=== PATIENT | female | born 1955 | race Caucasian/White ===

== ENCOUNTER 2016-11-16 11:32 | Outpatient (CLI) | payer MEDICARE, OTHER | END 2016-11-16 11:33 | disposition home or self-care (01) | DX: Z98.1 Arthrodesis status (principal) ==

== ENCOUNTER 2016-12-04 11:57 | Emergency (ER) | payer MEDICARE, OTHER ==
[2016-12-04] MEDS ORDERED: ACETAMINOPHEN 325 MG TABLET PO STA (13:37)
[2016-12-04] MEDS ORDERED: ACETAMINOPHEN 325 MG TABLET PO ONE (13:41)
== END 2016-12-04 14:31 | disposition home or self-care (01) ==
DX: S83.91XA Sprain of unspecified site of right knee, initial encounter (principal); X50.0XXA Overexertion from strenuous movement or load, initial encounter; Y93.89 Activity, other specified; Y92.59 Other trade areas as the place of occurrence of the external cause; I10 Essential (primary) hypertension; M19.90 Unspecified osteoarthritis, unspecified site; M79.7 Fibromyalgia; K21.9 Gastro-esophageal reflux disease without esophagitis; Z87.11 Personal history of peptic ulcer disease; F17.200 Nicotine dependence, unspecified, uncomplicated
CPT/HCPCS: 73564; 99282; 99283; A9270

== ENCOUNTER 2017-07-17 07:59 | Emergency (ER) | payer MEDICARE, OTHER ==
[2017-07-17] MEDS ORDERED: DEXAMETHASONE 10 MG/ML VIAL IVP STA (08:40)
[2017-07-17] MEDS ORDERED: SODIUM CHLORIDE 0.9% 1,000 ML IV ONE ×2 (08:40→10:30)
[2017-07-17] MEDS ORDERED: fentaNYL 100 MCG/2 ML VIAL IVP STA (08:40)
[2017-07-17] MEDS ORDERED: LORazepam 2 MG/ML SYRINGE IVP STA (08:41)
[2017-07-17] MEDS ORDERED: ONDANSETRON 4 MG/2 ML VIAL IVP STA (08:41)
--- NOTE | 2017-07-17 08:47 | ED Physician Documentation ---
PD HPI NVD - Stated complaint Stated Complaint: VOMITING - Chief complaint Chief Complaint: Abd Pain - History obtained from History obtained from: Patient - History of Present Illness Timing - onset: How many days ago (4) Timing - duration: Days (4) Timing - details: Gradual onset, Still present Associated symptoms: Abdominal pain, Weight loss Contributing factors: Other (stress) Improved by: Vomiting Worsened by: Eating Similar symptoms before: Diagnosis (cyclical vomiting with cannibis) Recently seen: Clinic - Additonal information Additional information: 62-year-old female with a prior history of cannabis induced hyperemesis has had a significant amount of stress in her life recently with her health. She has severe back pain that has been ongoing for more than 1 year. She has had a 9 hour surgery on her back that failed. She is not on pain management. She is taking cannabis for pain control and she is bathing frequently. She does know she has cannabis hyperemesis and she has stopped smoking previously. She notes that recently she had CT and MRI of her back and had an incidental finding of a renal cell carcinoma and she has had a visit to the surgeon and will have to have this removed. She became much more anxious following this news last week and increased her use of cannabis. She has now developed hyperemesis.She has been having pain for the past year and has not had good relief with anything. She did find the fentanyl given in the ambulance was effective. 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: None : None HEENT: None Psych: Anxiety Musculoskeletal: Fibromyalgia, Chronic back pain Derm: Other - Past Surgical History Past Surgical History: Yes General: Appendectomy, Bowel surgery Ortho: Carpal Tunnel surgery, Spine surgery Neuro: Radical neck - Present Medications Home Medications: Ambulatory Orders Medication Instructions Recorded Confirmed Simvastatin 40 mg PO QPM 11/25/15 07/17/17 Carvedilol [Coreg] 1 tab PO BID 12/04/16 07/17/17 Glipizide 1 tab PO DAILY 12/04/16 07/17/17 Omeprazole [PriLOSEC] 1 tab PO DAILY 12/04/16 07/17/17 Sucralfate 1 tab PO QID 12/04/16 07/17/17 Zolpidem [Ambien] 1 tab PO DAILY 12/04/16 07/17/17 Albuterol Sulfate [Proair Hfa 07/17/17 Inhaler] Telmisartan [Micardis] 40 mg PO DAILY 07/17/17 07/17/17 - Allergies Allergies/Adverse Reactions: Allergies Allergy/AdvReac Type Severity Reaction Status Date / Time hydromorphone HCl * Allergy Unknown UNKNOWN Verified 12/04/16 12:03 [From Dilaudid] duloxetine Allergy Anxiety Verified 07/17/17 08:09 gabapentin Allergy Hallucinati Verified 07/17/17 08:09 ons levofloxacin [From Levaquin] Allergy Hallucinati Verified 07/17/17 08:09 ons morphine AdvReac Emesis Verified 12/04/16 12:03 - Social History Does the pt smoke?: Yes Smoking Status: Current every day smoker Does the pt drink ETOH?: No Does the pt have substance abuse?: No - Immunizations Immunizations are current?: Yes - POLST Patient has POLST: No PD ED PE NORMAL - Vitals Vital signs reviewed: Yes (hypertensive ) - General General: Alert and oriented X 3, Well developed/nourished, Other (The patient is moaning in pain with movement and appears uncomfortable. She has spasms with any movements. ) - HEENT HEENT: Atraumatic, PERRL, EOMI - Neck Neck: Supple, no meningeal sign - Cardiac Cardiac: RRR, No murmur - Respiratory Respiratory: No respiratory distress, Clear bilaterally - Abdomen Abdomen: Soft, Other (mild general tenderness without garding/rebound) - Back Back: No CVA TTP, Other (There is tenderness to the paraspinous muscles more on the right from the lower thoracic spine to the lower lumbar) - Derm Derm: Normal color, Warm and dry, No rash - Extremities Extremities: No deformity, No edema - Neuro Neuro: Alert and oriented X 3, No motor deficit, No sensory deficit, Normal speech - Psych Psych: Normal mood, Normal affect Results - Vitals Vitals: Vital Signs - 24 hr 07/17/17 07/17/17 07/17/17 08:02 09:16 11:06 Temperature 36.5 C 37.0 C 36.8 C Heart Rate 86 90 98 Respiratory 19 16 16 Rate Blood Pressure 197/120 H 154/88 H 155/88 H O2 Saturation 100 97 98 Oxygen O2 Source Room air - Labs Labs: Laboratory Tests 07/17/17 07/17/17 07/17/17 08:20 08:20 09:45 WBC 10.0 RBC 4.85 Hgb 14.7 Hct 43.6 MCV 89.9 MCH 30.4 MCHC 33.8 RDW 14.1 Plt Count 296 MPV 8.5 Neut # 7.6 H Lymph # 1.6 [place] # 0.7 Eos # 0.1 Baso # 0.1 Absolute Nucleated RBC 0.01 Nucleated RBC % 0.1 Sodium 136 Potassium 3.8 Chloride 97 L Carbon Dioxide 24 Anion Gap 15.0 H BUN 24 H Creatinine 1.9 H Estimated GFR (MDRD) 27 L Glucose 193 H Calcium 10.2 Total Bilirubin 1.3 H AST 15 ALT 11 Alkaline Phosphatase 60 Total Protein 8.0 Albumin 5.0 Globulin 3.0 Albumin/Globulin Ratio 1.7 Lipase 21 L Urine Color YELLOW Urine Clarity CLEAR Urine pH 6.0 Ur Specific [place] >=1.030 H Urine Protein 30 H Urine Glucose (UA) 250 H Urine Ketones 15 H Urine Occult Blood SMALL H Urine Nitrite NEGATIVE Urine Bilirubin NEGATIVE Urine Urobilinogen 0.2 (NORMAL) Ur Leukocyte Esterase NEGATIVE Urine RBC 0-5 Urine WBC 0-3 Ur Squamous Epith Cells MOD Squamous H Urine Bacteria Few Urine Casts 3-5 Hyaline Casts Urine Mucus Few Strands Ur Microscopic Review INDICATED Urine Culture Comments NOT INDICATED Procedures - IVC sono (time) 0830 Bedside IVC sono: IVC measures (cm) (0.83), IVC collapsed c insp (cm) (complete) , Dehydration PD MEDICAL DECISION MAKING - ED course Complexity details: reviewed old records, reviewed results, re-evaluated patient , considered differential, d/w patient ED course: 62-year-old female with a history of cannabis hyperemesis has developed nausea vomiting or abdominal pain with increased cannabis use with the stress of recently diagnosed cancer. She has chronic back pain and has not been medicated for that as well. Departure - Departure Disposition: 01 Home, Self Care Clinical Impression: Cannabinoid hyperemesis syndrome, Stress and adjustment reaction Condition: Stable Instructions: ED Diet Vomiting Diarrhea, ED Stress React Follow-Up: Luis Blanc MD [Primary Care Provider] -
[2017-07-17 09:24] LABS: BASOPHILS # (AUTO) 0.1 10^3/uL (0.0-0.1); BASOPHILS % (AUTO) 0.6 %; EOSINOPHILS # (AUTO) 0.1 10^3/uL (0.0-0.7); EOSINOPHILS % (AUTO) 0.8 %; HCT - HEMATOCRIT 43.6 % (37.0-47.0); HGB - HEMOGLOBIN 14.7 g/dL (12.0-16.0); LYMPHOCYTES # (AUTO) 1.6 10^3/uL (1.5-3.5); LYMPHOCYTES % (AUTO) 15.8 %; MEAN CORPUSCULAR HEMOGLOBIN 30.4 pg (27.0-31.0); MEAN CORPUSCULAR HGB CONC 33.8 g/dL (32.0-36.0); MEAN CORPUSCULAR VOLUME 89.9 fL (81.0-99.0); MEAN PLATELET VOLUME 8.5 fL (7.9-10.8); MONOCYTES # (AUTO) 0.7 10^3/uL (0.0-1.0); MONOCYTES % (AUTO) 6.6 %; NEUTROPHILS # (AUTO) 7.6 10^3/uL (1.5-6.6); NEUTROPHILS % (AUTO) 76.2 %; NUCLEATED RED BLOOD CELLS AUTO 0.1 /100WBC; RED BLOOD COUNT 4.85 10^6/uL (4.20-5.40); RED CELL DISTRIBUTION WIDTH 14.1 % (12.0-15.0)
[2017-07-17 09:34] LABS: ALBUMIN/GLOBULIN RATIO 1.7 (1.0-2.2); BILIRUBIN,TOTAL 1.3 mg/dL (0.2-1.0); CALCIUM 10.2 mg/dL (8.5-10.3); CREATININE 1.9 mg/dL (0.4-1.0); POTASSIUM 3.8 mmol/L (3.5-5.0)
[2017-07-17 10:04] LABS: BILIRUBIN,URINE NEGATIVE (NEGATIVE); UA w/ MICROSCOPIC CHARGE YES
[2017-07-17 10:09] LABS: UR CULTURE IF IND NOT INDICATED; WBC,URINE 0-3 /HPF (0-5)
[2017-07-17 12:28] VITALS: BP 196/116
== END 2017-07-17 12:28 | disposition home or self-care (01) ==
LOC: ED 07:59
DX: F12.988 Cannabis use, unspecified with other cannabis-induced disorder (principal); R11.10 Vomiting, unspecified; F43.21 Adjustment disorder with depressed mood; C64.9 Malignant neoplasm of unspecified kidney, except renal pelvis; I10 Essential (primary) hypertension; E11.9 Type 2 diabetes mellitus without complications; Z79.84 Long term (current) use of oral hypoglycemic drugs; K21.9 Gastro-esophageal reflux disease without esophagitis; M79.7 Fibromyalgia; M54.9 Dorsalgia, unspecified; G89.29 Other chronic pain; Z87.11 Personal history of peptic ulcer disease; F17.200 Nicotine dependence, unspecified, uncomplicated
CPT/HCPCS: 36415; 80053; 81001; 81003; 83690; 85025; 87086; 96361; 96374; 96375; 99284

== ENCOUNTER 2017-11-01 02:11 | Emergency (ER) | payer MEDICARE, OTHER ==
[2017-11-01] MEDS ORDERED: SODIUM CHLORIDE 0.9% 1,000 ML IV ONE (02:28)
[2017-11-01] MEDS ORDERED: ONDANSETRON 4 MG/2 ML VIAL IVP STA (02:28)
--- NOTE | 2017-11-01 02:35 | ED Physician Documentation ---
PD HPI ABD PAIN - Stated complaint Stated Complaint: VOMITING - Chief complaint Chief Complaint: Back Pain - History obtained from History obtained from: Patient, Family - History of Present Illness Timing - onset: Yesterday Timing - details: Gradual onset, Still present Quality: Cramping, Aching Location: LLQ Worsened by: Eating Associated symptoms: Nausea, Vomiting, Constipation. No: Fever Similar symptoms before: Work up / diagnostics, Treatment Recently seen: Not recently seen - Additional information Additional information: Patient is a 62 year old female with a history of chronic back pain and multiple surgeries, cyclic vomiting and diverticulitis who is presenting to the emergency for back pain, llq pain and vomiting. patient states her mother recently and she was spending a lot of time taking care of her, and thinks that she might have tweaked her back. patient also states that she has had left lower quadrant pain. Patient states that she has been vomiting and unable to keep anything down. patient states that she normally is a bit constipated due to the opiates. patient states that she has not changed the amount of marijuana she is smoking. patient also reports that she had a mass on her kidney that was frozen off about 2 weeks ago. Review of Systems Constitutional: denies: Fever, Chills Eyes: denies: Decreased vision, Photophobia Ears: reports: Reviewed and negative Nose: reports: Reviewed and negative Throat: reports: Reviewed and negative Cardiac: denies: Chest pain / pressure, Palpitations Respiratory: denies: Dyspnea, Cough, Wheezing GI: reports: Abdominal Pain, Nausea, Vomiting, Constipation. 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 : None HEENT: None Psych: Anxiety Musculoskeletal: Fibromyalgia, Chronic back pain Derm: Other - Past Surgical History Past Surgical History: Yes General: Appendectomy, Bowel surgery Ortho: Carpal Tunnel surgery, Spine surgery Neuro: Radical neck - Present Medications Home Medications: Ambulatory Orders Medication Instructions Recorded Confirmed Simvastatin 40 mg PO QPM 11/25/11/01/17 Carvedilol [Coreg] 1 tab PO BID 12/04/16 11/01/17 Glipizide 1 tab PO DAILY 12/04/16 11/01/17 Omeprazole [PriLOSEC] 1 tab PO DAILY 12/04/16 11/01/17 Zolpidem [Ambien] 1 tab PO DAILY 12/04/16 11/01/17 Albuterol Sulfate [Proair Hfa 07/17/17 Inhaler] Telmisartan [Micardis] 40 mg PO DAILY 07/17/17 11/01/17 Cyclobenzaprine HCl 1 tab PO TID PRN 11/01/17 11/01/17 Ondansetron HCl [Zofran] 1 tab PO Q6HR PRN 11/01/17 11/01/17 Ondansetron Odt [Zofran] 4 mg TL Q6H PRN #20 tablet 11/01/17 Polyethylene Glycol 3350 [Miralax] 17 gm PO DAILY PRN 11/01/17 11/01/17 Pseudoephedrine HCl 1 tab PO Q6HR PRN 11/01/17 11/01/17 Senna [Senokot] 1 tab PO QPM 11/01/17 11/01/17 fentaNYL [Fentanyl 25mcg patch] 1 applic TOP 11/01/17 hydrOXYzine pamoate [Hydroxyzine 1 cap PO Q6HR PRN 11/01/17 11/01/17 Pamoate] - Allergies Allergies/Adverse Reactions: Allergies Allergy/AdvReac Type Severity Reaction Status Date / Time hydromorphone HCl * Allergy Unknown UNKNOWN Verified 11/01/17 02:26 [From Dilaudid] duloxetine Allergy Anxiety Verified 11/01/17 02:26 gabapentin Allergy Hallucinati Verified 11/01/17 02:26 ons levofloxacin [From Levaquin] Allergy Hallucinati Verified 11/01/17 02:26 ons morphine AdvReac Emesis Verified 11/01/17 02:26 - Social History Does the pt smoke?: Yes Smoking Status: Current every day smoker Does the pt drink ETOH?: No Does the pt have substance abuse?: No - Immunizations Immunizations are current?: Yes - POLST Patient has POLST: No PD ED PE NORMAL - Vitals Vital signs reviewed: Yes - General General: Alert and oriented X 3 - HEENT HEENT: Atraumatic, PERRL - Neck Neck: Supple, no meningeal sign PD ED PE EXPANDED - General General: Alert - HEENT HEENT: Dry mucous membranes - Abdomen Abdomen: Tender to palpation, LLQ. No: Rebound, Guarding - Extremities Extremities: Pedal edema bilateral Results - Vitals Vitals: Vital Signs - 24 hr 11/01/17 11/01/17 11/01/17 02:18 02:50 03:19 Temperature 36.9 C Heart Rate 114 H 99 99 Respiratory 20 18 18 Rate Blood Pressure 183/89 H 177/105 H 190/92 H O2 Saturation 98 99 100 11/01/17 04:15 Temperature Heart Rate 94 Respiratory 16 Rate Blood Pressure 179/85 H O2 Saturation 96 Oxygen O2 Source Room air - Labs Labs: Laboratory Tests 11/01/17 11/01/17 11/01/17 02:25 02:25 02:25 WBC 10.2 RBC 5.10 Hgb 15.3 Hct 45.9 MCV 90.0 MCH 30.0 MCHC 33.3 RDW 13.2 Plt Count 295 MPV 8.8 Neut # 8.0 H Lymph # 1.5 [place] # 0.6 Eos # 0.0 Baso # 0.1 Absolute Nucleated RBC 0.12 Nucleated RBC % 1.1 Sodium 139 Potassium 3.7 Chloride 96 L Carbon Dioxide 27 Anion Gap 16.0 H BUN 14 Creatinine 1.1 H Estimated GFR (MDRD) 50 L Glucose 197 H Calcium 9.9 Total Bilirubin 0.5 AST 17 ALT 14 Alkaline Phosphatase 62 Troponin I < 0.04 Total Protein 7.8 Albumin 4.7 Globulin 3.1 Albumin/Globulin Ratio 1.5 Lipase 28 Urine Color Urine Clarity Urine pH Ur Specific [place] Urine Protein Urine Glucose (UA) Urine Ketones Urine Occult Blood Urine Nitrite Urine Bilirubin Urine Urobilinogen Ur Leukocyte Esterase Ur Microscopic Review Urine Culture Comments 11/01/17 03:38 WBC RBC Hgb Hct MCV MCH MCHC RDW Plt Count MPV Neut # Lymph # [place] # Eos # Baso # Absolute Nucleated RBC Nucleated RBC % Sodium Potassium Chloride Carbon Dioxide Anion Gap BUN Creatinine Estimated GFR (MDRD) Glucose Calcium Total Bilirubin AST ALT Alkaline Phosphatase Troponin I Total Protein Albumin Globulin Albumin/Globulin Ratio Lipase Urine Color LT. YELLOW Urine Clarity CLEAR Urine pH 8.0 H Ur Specific [place] 1.015 Urine Protein NEGATIVE Urine Glucose (UA) 100 H Urine Ketones TRACE Urine Occult Blood TRACE-INTA Urine Nitrite NEGATIVE Urine Bilirubin NEGATIVE Urine Urobilinogen 0.2 (NORMAL) Ur Leukocyte Esterase NEGATIVE Ur Microscopic Review NOT INDICATED Urine Culture Comments NOT INDICATED - Rads (name of study) ct abdomen pelvis Radiology: Final report received (no sigificant acute intrabdominal pathology), See rad report PD MEDICAL DECISION MAKING - ED course Complexity details: reviewed old records, reviewed results, re-evaluated patient , considered differential, d/w patient, d/w family ED course: Patient was seen and examined at bedside. IV access was gained and patient was treated with a fluid bolus and zofran. imaging was ordered. Patient's CT showed no reason for acute abdominal pain. Patient's other diagnostics were within normal limits. Patient had no other episodes of emesis while in the emergency department. patient required no further inpatient work up and was stable for discharge with outpatient follow up. Departure - Departure Disposition: 01 Home, Self Care Clinical Impression: Vomiting, Cannabinoid hyperemesis syndrome Condition: Good Instructions: ED Diet Vomiting Diarrhea Follow-Up: Luis Blanc MD [Primary Care Provider] - Within 3 Days Prescriptions: Ondansetron Odt [Zofran] 4 mg TL Q6H PRN #20 tablet PRN Reason: Nausea / Vomiting Comments: Your diagnostics today were within normal limits. there were no major abnormalities on your CT or blood work. You should take the zofran as needed for nausea and stay well hydrated. You can take tylenol as needed for pain. You should follow up with your doctor if your symptoms persist. You may return to the emergency department at any time for new, worsening or uncontrollable symptoms.
[2017-11-01 02:51] LABS: ALBUMIN 4.7 g/dL (3.2-5.5); ALBUMIN/GLOBULIN RATIO 1.5 (1.0-2.2); BILIRUBIN,TOTAL 0.5 mg/dL (0.2-1.0); CALCIUM 9.9 mg/dL (8.5-10.3); CREATININE 1.1 mg/dL (0.4-1.0); TOTAL PROTEIN 7.8 g/dL (6.7-8.2)
[2017-11-01 02:54] LABS: BASOPHILS # (AUTO) 0.1 10^3/uL (0.0-0.1); BASOPHILS % (AUTO) 0.7 %; EOSINOPHILS % (AUTO) 0.3 %; HGB - HEMOGLOBIN 15.3 g/dL (12.0-16.0); LYMPHOCYTES # (AUTO) 1.5 10^3/uL (1.5-3.5); LYMPHOCYTES % (AUTO) 14.6 %; MEAN CORPUSCULAR HGB CONC 33.3 g/dL (32.0-36.0); MEAN PLATELET VOLUME 8.8 fL (7.9-10.8); MONOCYTES # (AUTO) 0.6 10^3/uL (0.0-1.0); MONOCYTES % (AUTO) 6.2 %; NEUTROPHILS % (AUTO) 78.2 %; PLT - PLATELET COUNT 295 10^3/uL (130-450); RED CELL DISTRIBUTION WIDTH 13.2 % (12.0-15.0); WHITE BLOOD COUNT 10.2 x10^3/uL (4.8-10.8)
[2017-11-01] MEDS ORDERED: IOPAMIDOL-300 100 ML VIAL ONE (03:03)
[2017-11-01] MEDS ORDERED: IOPAMIDOL-300 100 ML VIAL IVP ONE (03:19)
--- NOTE | 2017-11-01 03:54 | CT Report ---
EXAM: CT ABDOMEN AND PELVIS EXAM DATE: 11/01/2017 03:26 AM. CLINICAL HISTORY: Abdominal pain and vomiting. COMPARISONS: 12/01/2015. TECHNIQUE: Routine helical CT imaging was performed through the abdomen and pelvis. IV contrast: 80ML ISOVUE 300. Enteric contrast: No. Reconstructions: Coronal and sagittal. In accordance with CT protocol optimization, one or more of the following dose reduction techniques w ere utilized for this exam: automated exposure control, adjustment of mA and/or KV based on patient s ize, or use of iterative reconstructive technique. FINDINGS: Lung Bases: No focal consolidation seen. Small hiatal hernia. Liver: Fatty infiltration. Gallbladder/Bile Ducts: Tiny calcified stones in the gallbladder. No cholecystitis identified. Spleen: Normal. Pancreas: Normal. Adrenal Glands: Normal. Kidneys: Right upper pole renal mass measuring 2.8 cm, series 5 image 39. Small bilateral renal cysts . Tiny nonobstructing left renal stone. No hydronephrosis seen. Peritoneal Cavity/Bowel: Colonic diverticulosis without evidence of diverticulitis. No bowel obstruct ion seen. No free air or free fluid. Small umbilical hernia containing fat. Appendix is not seen. No evidence of appendicitis. Pelvic Organs: Normal. The bladder and visualized pelvic organs are within normal limits. Vasculature: Mild atherosclerosis. No aortic aneurysm. Bones: Osteopenia. Degenerative changes and extensive postoperative changes in the lumbosacral spine. Other: None. IMPRESSION: 1. Colonic diverticulosis. No definite diverticulitis seen. 2. Right upper pole renal mass measuring 2.8 cm. This could represent renal cell carcinoma. Benign et iologies not excluded. 3. Tiny nonobstructing stone in the left kidney. No hydronephrosis seen bilaterally. 4. Tiny calcified stones in the gallbladder. No cholecystitis identified. 5. Fatty liver. [facility] Referring Provider Line: [phone] SITE ID: [id number]
[2017-11-01 03:56] LABS: BILIRUBIN,URINE NEGATIVE (NEGATIVE); GLUCOSE, URINE (UA) 100 mg/dL (NEGATIVE); KETONES,URINE (UA) TRACE mg/dL (NEGATIVE); LEUKOCYTE ESTERASE, URINE NEGATIVE (NEGATIVE); NITRITE,URINE NEGATIVE (NEGATIVE); OCCULT BLOOD,URINE TRACE-INTA (NEGATIVE); PROTEIN,URINE NEGATIVE (NEGATIVE); UROBILINOGEN,URINE 0.2 (NORMAL) E.U./dL (NORMAL)
[2017-11-01 04:15] LABS: CLARITY,URINE CLEAR (CLEAR)
[2017-11-01 04:38] VITALS: BP 164/87
== END 2017-11-01 04:47 | disposition home or self-care (01) ==
LOC: ED 02:11
DX: F12.988 Cannabis use, unspecified with other cannabis-induced disorder (principal); R11.2 Nausea with vomiting, unspecified; R10.12 Left upper quadrant pain; I10 Essential (primary) hypertension; E11.9 Type 2 diabetes mellitus without complications; Z79.84 Long term (current) use of oral hypoglycemic drugs; M54.9 Dorsalgia, unspecified; G89.29 Other chronic pain; M79.7 Fibromyalgia; K21.9 Gastro-esophageal reflux disease without esophagitis; F17.200 Nicotine dependence, unspecified, uncomplicated
CPT/HCPCS: 36415; 74177; 80053; 81003; 83690; 84484; 85025; 96361; 96374; 99283; 99284; Q9967; 81001; 87086

== ENCOUNTER 2017-12-05 10:13 | Outpatient (CLI) | payer MEDICARE, OTHER ==
--- NOTE | 2017-12-05 17:46 | XRAY Report ---
TWO VIEW CHEST: 12/05/2017 CLINICAL INDICATION: Cough. COMPARISON: 03/14/2013 FINDINGS: Frontal and lateral views of the chest demonstrate a normal cardiac silhouette. The lungs are clear. No effusion or pneumothorax is present. IMPRESSION: NORMAL CHEST. TD: 12/05/2017 17:45
== END 2017-12-05 10:14 | disposition home or self-care (01) ==
LOC: DI 10:13
PROVIDERS: ATTEND Internal Medicine
DX: J45.991 Cough variant asthma (principal)
CPT/HCPCS: 71046

== ENCOUNTER 2018-01-12 14:20 | Emergency (ER) | payer MEDICARE, OTHER ==
[2018-01-12] MEDS ORDERED: SODIUM CHLORIDE 0.9% 1,000 ML IV ONE ×2 (14:55→15:48)
[2018-01-12] MEDS ORDERED: ONDANSETRON 4 MG/2 ML VIAL IVP STA (14:56)
[2018-01-12] MEDS ORDERED: fentaNYL 100 MCG/2 ML VIAL IVP STA (14:56)
[2018-01-12] MEDS ORDERED: LORazepam 2 MG/ML VIAL IVP STA (14:57)
[2018-01-12 15:09] LABS: BASOPHILS # (AUTO) 0.1 10^3/uL (0.0-0.1); BASOPHILS % (AUTO) 0.6 %; EOSINOPHILS % (AUTO) 0.1 %; HGB - HEMOGLOBIN 17.3 g/dL (12.0-16.0); LYMPHOCYTES # (AUTO) 1.6 10^3/uL (1.5-3.5); LYMPHOCYTES % (AUTO) 8.3 %; MEAN CORPUSCULAR HEMOGLOBIN 29.9 pg (27.0-31.0); MEAN CORPUSCULAR HGB CONC 34.1 g/dL (32.0-36.0); MEAN CORPUSCULAR VOLUME 87.7 fL (81.0-99.0); MEAN PLATELET VOLUME 8.8 fL (7.9-10.8); MONOCYTES # (AUTO) 0.8 10^3/uL (0.0-1.0); MONOCYTES % (AUTO) 4.1 %; NEUTROPHILS # (AUTO) 16.6 10^3/uL (1.5-6.6); NEUTROPHILS % (AUTO) 86.9 %; PLT - PLATELET COUNT 326 10^3/uL (130-450); RED BLOOD COUNT 5.78 10^6/uL (4.20-5.40); WHITE BLOOD COUNT 19.1 x10^3/uL (4.8-10.8)
[2018-01-12 15:20] LABS: ALBUMIN 6.2 g/dL (3.2-5.5); ALBUMIN/GLOBULIN RATIO 1.9 (1.0-2.2); BILIRUBIN,TOTAL 1.3 mg/dL (0.2-1.0); CALCIUM 10.6 mg/dL (8.5-10.3); CREATININE 2.5 mg/dL (0.4-1.0); TOTAL PROTEIN 9.4 g/dL (6.7-8.2)
[2018-01-12 17:35] LABS: GLUCOSE, URINE (UA) NEGATIVE (NEGATIVE); KETONES,URINE (UA) NEGATIVE (NEGATIVE); LEUKOCYTE ESTERASE, URINE NEGATIVE (NEGATIVE); NITRITE,URINE NEGATIVE (NEGATIVE); OCCULT BLOOD,URINE MODERATE (NEGATIVE); PROTEIN,URINE 100 mg/dL (NEGATIVE); UROBILINOGEN,URINE 0.2 (NORMAL) E.U./dL (NORMAL)
[2018-01-12 17:38] LABS: BILIRUBIN,URINE NEGATIVE (NEGATIVE); CLARITY,URINE CLOUDY (CLEAR); ICTOTEST,URINE NEGATIVE
[2018-01-12] MEDS ORDERED: PHENobarb/HYOSCY/ATROPINE/SCOP 5 ML UDC PO STA (17:41)
[2018-01-12] MEDS ORDERED: LIDOCAINE VISCOUS 2% 15 ML UDC MM STA (17:41)
[2018-01-12] MEDS ORDERED: MAG HYDROX/AL HYDROX/SIMETH 30 ML UDC PO STA (17:41)
[2018-01-12 17:50] LABS: BACTERIA,URINE Few /HPF (None Seen); MUCUS,URINE Few Strands; SQUAMOUS EPITHELIAL CELL,UR MANY Squamous (<= Few)
[2018-01-12 17:51] LABS: CRYSTALS,URINE 0-2 Calcium Oxalate /LPF
--- NOTE | 2018-01-12 17:54 | ED Physician Documentation ---
PD HPI ABD PAIN - Stated complaint Stated Complaint: VOMITING - Chief complaint Chief Complaint: Abd Pain - History obtained from History obtained from: Patient - History of Present Illness Timing - onset: How many days ago (2) Timing - duration: Days (2) Timing - details: Still present Quality: Cramping Associated symptoms: Vomiting, Diarrhea Similar symptoms before: Diagnosis (Cannabanoid cyclic vomiting syndrome) - Additional information Additional information: The patient is a 62-year-old female who complains of 2 day history of vomiting and watery diarrhea. She reports associated cramping abdominal pain. She denies fever, chest pain, or dysuria. She has history of similar symptoms in the past, and has been diagnosed with cannabinoid cyclic vomiting syndrome. Her last episode this bad was about 2 months ago. Review of her medical record reveals that she was seen here 2-1/2 months ago with similar symptoms. CT scan of the abdomen and pelvis at that time was negative. Past medical history is significant for type 2 diabetes, chronic back pain, with back surgery 3, and status post appendectomy. She states marijuana is the only thing that helps control her back pain. Review of Systems Constitutional: reports: Fatigue. denies: Fever Ears: denies: Tinnitus/ringing Nose: denies: Congestion Throat: reports: Other (Dry mouth). denies: Sore throat Cardiac: denies: Chest pain / pressure, Palpitations Respiratory: denies: Dyspnea, Cough GI: reports: Abdominal Pain (Mild left-sided cramping abdominal pain.), Nausea, Vomiting, Diarrhea : denies: Dysuria Skin: denies: Rash Musculoskeletal: reports: Back pain (chronically) Neurologic: reports: Generalized weakness. 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 HEENT: None Psych: Anxiety Musculoskeletal: Fibromyalgia, Chronic back pain Derm: Other - Past Surgical History Past Surgical History: Yes General: Appendectomy, Bowel surgery Ortho: Carpal Tunnel surgery, Spine surgery Neuro: Radical neck - Present Medications Home Medications: Ambulatory Orders Medication Instructions Recorded Confirmed Simvastatin 40 mg PO QPM 11/25/15 01/12/18 Carvedilol [Coreg] 6.25 mg PO BID 12/04/16 01/12/18 Zolpidem [Ambien] 10 mg PO QPM 12/04/16 01/12/18 Polyethylene Glycol 3350 [Miralax] 17 gm PO DAILY PRN 11/01/17 01/12/18 hydrOXYzine pamoate [Hydroxyzine 25 mg PO Q6HR PRN 11/01/17 01/12/18 Pamoate] Albuterol Sulfate [Proair Hfa 2 puffs INH Q4H PRN 01/12/18 01/12/18 Inhaler] Ondansetron [Ondansetron Odt] 8 mg PO Q8H PRN 01/12/18 01/12/18 Promethazine [Phenergan] 25 - 50 mg PO Q6H PRN #10 tab 01/12/18 Telmisartan [Micardis] 40 mg PO DAILY 01/12/18 fentaNYL [Fentanyl 12mcg patch] 12 mcg TOP Q72H 01/12/18 01/12/18 glipiZIDE [Glipizide] 5 mg PO 0730 01/12/18 01/12/18 - Allergies Allergies/Adverse Reactions: Allergies Allergy/AdvReac Type Severity Reaction Status Date / Time hydromorphone HCl * Allergy Unknown UNKNOWN Verified 01/12/18 14:26 [From Dilaudid] duloxetine Allergy Anxiety Verified 01/12/18 14:26 gabapentin Allergy Hallucinati Verified 01/12/18 14:26 ons levofloxacin [From Levaquin] Allergy Hallucinati Verified 01/12/18 14:26 ons morphine AdvReac Emesis Verified 01/12/18 14:26 - Social History Does the pt smoke?: Yes Smoking Status: Current every day smoker Does the pt drink ETOH?: No Does the pt have substance abuse?: No - Immunizations Immunizations are current?: Yes - POLST Patient has POLST: No PD ED PE NORMAL - Vitals Vital signs reviewed: Yes (Tachycardic and hypertensive.) - General General: Alert and oriented X 3, Other (Appears miserable.) - HEENT HEENT: Atraumatic, Pharynx benign, Other (Dry mucous membranes.) - Neck Neck: Supple, no meningeal sign, No adenopathy, No JVD - Cardiac Cardiac: Other (Rapid rate, regular rhythm.) - Respiratory Respiratory: Clear bilaterally - Abdomen Abdomen: Soft, Other (Mild tenderness to palpation in the left upper quadrant, without rebound tenderness or guarding.) - Back Back: No CVA TTP - Derm Derm: No rash - Extremities Extremities: No edema, No calf tenderness / cord - Neuro Neuro: Alert and oriented X 3, No motor deficit, No sensory deficit Results - Vitals Vitals: Oxygen O2 Source Room air - EKG (time done) 17:49 Rate: Rate (enter#) (88) Rhythm: NSR, LAE [place]: Normal QRS: Normal Ischemia: Normal ST segments Compare to prior EKG: Old EKG unavailable Computer interpretation: Agree with computer - Labs Labs: Laboratory Tests 01/12/18 01/12/18 01/12/18 15:00 15:00 17:28 WBC 19.1 H RBC 5.78 H Hgb 17.3 H Hct 50.7 H MCV 87.7 MCH 29.9 MCHC 34.1 RDW 14.0 Plt Count 326 MPV 8.8 Neut # 16.6 H Lymph # 1.6 Early # 0.8 Eos # 0.0 Baso # 0.1 Absolute Nucleated RBC 0.01 Nucleated RBC % 0.0 Sodium 131 L Potassium 3.4 L Chloride 88 L Carbon Dioxide 23 Anion Gap 20.0 H BUN 28 H Creatinine 2.5 H Estimated GFR (MDRD) 19 L Glucose 230 H Calcium 10.6 H Total Bilirubin 1.3 H AST 31 ALT 17 Alkaline Phosphatase 80 Total Protein 9.4 H Albumin 6.2 H Globulin 3.2 Albumin/Globulin Ratio 1.9 Lipase 11 L Urine Color YELLOW Urine Clarity CLOUDY Urine pH 6.0 Ur Specific [place] >=1.030 H Urine Protein 100 H Urine Glucose (UA) NEGATIVE Urine Ketones NEGATIVE Urine Occult Blood MODERATE H Urine Nitrite NEGATIVE Urine Bilirubin NEGATIVE Urine Urobilinogen 0.2 (NORMAL) Ur Leukocyte Esterase NEGATIVE Urine RBC 6-10 H Urine WBC 6-10 H Ur Squamous Epith Cells MANY Squamous H Urine Crystals 0-2 Calcium Oxalate Urine Bacteria Few Urine Casts 0-2 Course Granular Urine Mucus Few Strands Ur Microscopic Review INDICATED Urine Culture Comments NOT INDICATED PD MEDICAL DECISION MAKING - ED course Complexity details: reviewed old records, reviewed results, re-evaluated patient , considered differential, d/w patient, d/w family ED course: The patient's presentation is most consistent with recurrent cannabinoid hyperemesis syndrome, with associated dehydration from vomiting and diarrhea. Her lab results reveal concentrated urine with specific gravity greater than 1.030. BUN is elevated at 28, with a creatinine of 2.5. Serum glucose is elevated at 230. White blood cell count is elevated at 19.1. On repeated examinations of the patient's abdomen there is no indication of diverticulitis, bowel obstruction, and I doubt pancreatitis with a normal lipase. Treatment in the emergency department included administration of normal saline 2 L IV, Zofran 4 mg IV, fentanyl 100 g IV, and lorazepam 0.5 mg IV. Acetaminophen 650 mg administered orally, potassium 20 mEq was administered orally, and a GI cocktail was administered. In addition a fentanyl patch 12 g was applied. Following the above treatment the patient felt subjectively much improved. She appeared back to baseline, and demonstrated ability to drink fluids without recurrent vomiting. I discussed with her and her symptomatic treatment and outpatient follow-up, as well as potentially worrisome signs or symptoms that should prompt reevaluation in the emergency department. She is being discharged with prescription for Phenergan. Departure - Departure Disposition: 01 Home, Self Care Clinical Impression: Dehydration, Cannabinoid hyperemesis syndrome, Renal insufficiency Chronic back pain Qualifiers: Back pain location: low back pain Back pain laterality: bilateral Sciatica presence: unspecified whether sciatica present Qualified Code(s): M54.5 - Low back pain Condition: Stable Instructions: ED Nausea Vomiting Follow-Up: Luis Blanc MD [Physician No Access] - Prescriptions: Promethazine [Phenergan] 25 - 50 mg PO Q6H PRN #10 tab PRN Reason: Nausea / Vomiting Comments: Drink plenty of fluids. You can use Phenergan as prescribed, or Zofran as previously prescribed, if needed for recurrent nausea. Minimize your use of marijuana. Follow up with your primary physician within 1 week. Call to schedule appointment. He will want to recheck your kidney function. Return to the emergency department if you develop increasing abdominal pain, persistent vomiting, recurrent dehydration, or otherwise worsening symptoms. Discharge Date/Time: 01/12/18 19:15
[2018-01-12] MEDS ORDERED: fentaNYL 12 MCG PATCH TOP STA (18:39)
[2018-01-12] MEDS ORDERED: POTASSIUM CHLORIDE 20 MEQ TABLET PO STA (18:40)
[2018-01-12] MEDS ORDERED: ACETAMINOPHEN 325 MG TABLET PO STA (18:45)
[2018-01-12 19:46] VITALS: BP 142/105
== END 2018-01-12 19:15 | disposition home or self-care (01) ==
LOC: ED 14:20
DX: E86.0 Dehydration (principal); F12.988 Cannabis use, unspecified with other cannabis-induced disorder; N28.9 Disorder of kidney and ureter, unspecified; M54.5 Low back pain; G89.29 Other chronic pain; E11.9 Type 2 diabetes mellitus without complications; K21.9 Gastro-esophageal reflux disease without esophagitis; M79.7 Fibromyalgia; Z79.84 Long term (current) use of oral hypoglycemic drugs; F17.200 Nicotine dependence, unspecified, uncomplicated
CPT/HCPCS: 36415; 80053; 81001; 83690; 85025; 93005; 96361; 96374; 99283; 99284; A9270; J2060; 81003; 87086

== ENCOUNTER 2018-02-27 11:29 | Inpatient (IN) | payer MEDICARE, OTHER ==
[2018-02-27 12:22] LABS: BASOPHILS # (AUTO) 0.1 10^3/uL (0.0-0.1); BASOPHILS % (AUTO) 0.3 %; LYMPHOCYTES % (AUTO) 4.5 %; MEAN CORPUSCULAR HEMOGLOBIN 29.8 pg (27.0-31.0); MEAN CORPUSCULAR HGB CONC 33.5 g/dL (32.0-36.0); MEAN CORPUSCULAR VOLUME 89.1 fL (81.0-99.0); MONOCYTES # (AUTO) 1.4 10^3/uL (0.0-1.0); MONOCYTES % (AUTO) 6.5 %; NEUTROPHILS # (AUTO) 18.9 10^3/uL (1.5-6.6); NEUTROPHILS % (AUTO) 88.7 %; PLT - PLATELET COUNT 310 10^3/uL (130-450); RED BLOOD COUNT 5.35 10^6/uL (4.20-5.40); RED CELL DISTRIBUTION WIDTH 13.4 % (12.0-15.0); WHITE BLOOD COUNT 21.4 x10^3/uL (4.8-10.8)
[2018-02-27 12:30] LABS: ALBUMIN 5.6 g/dL (3.2-5.5); ALBUMIN/GLOBULIN RATIO 1.6 (1.0-2.2); BILIRUBIN,TOTAL 1.3 mg/dL (0.2-1.0); CALCIUM 10.4 mg/dL (8.5-10.3); CREATININE 1.5 mg/dL (0.4-1.0); TOTAL PROTEIN 9.2 g/dL (6.7-8.2)
[2018-02-27 12:41] LABS: PLATELET MORPHOLOGY NORMAL APPEARANCE (NORMAL)
[2018-02-27 12:42] LABS: PLATELET ESTIMATE, MANUAL NORMAL (130-450,000) (NORMAL); RBC MORPHOLOGY (MULTIPLE) NORMAL APPEARANCE (NORMAL)
--- NOTE | 2018-02-27 12:58 | ED Physician Documentation ---
PD HPI NVD - Stated complaint Stated Complaint: VOMITTING - Chief complaint Chief Complaint: Abd Pain - History obtained from History obtained from: Patient - History of Present Illness Timing - onset: Yesterday Timing - duration: Days (1) Timing - details: Gradual onset, Still present Associated symptoms: Abdominal pain (left upper abd) Contributing factors: No: Sick contact, Bad food, Travel, Recent antibiotics Improved by: No: Vomiting Worsened by: Eating Similar symptoms before: Has not had sx before Recently seen: Not recently seen Review of Systems Constitutional: reports: Fever, Chills, Myalgias Nose: denies: Rhinorrhea / runny nose, Congestion Throat: denies: Sore throat Cardiac: denies: Chest pain / pressure, Palpitations Respiratory: denies: Dyspnea, Cough, Wheezing GI: reports: Abdominal Pain, Nausea, Vomiting, Diarrhea. denies: Abdominal Swelling, Constipation, Hematemesis, Bloody / black stool : denies: Dysuria, Frequency, Discharge Skin: denies: Rash Musculoskeletal: denies: Back pain, Extremity swelling Neurologic: reports: Generalized weakness. 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 HEENT: None Psych: Anxiety Musculoskeletal: Fibromyalgia, Chronic back pain Derm: Other - Past Surgical History Past Surgical History: Yes General: Appendectomy, Bowel surgery Ortho: Carpal Tunnel surgery, Spine surgery Neuro: Radical neck - Present Medications Home Medications: Ambulatory Orders Medication Instructions Recorded Confirmed Simvastatin 40 mg PO QPM 11/25/15 02/28/18 Carvedilol [Coreg] 6.25 mg PO BID 12/04/16 02/28/18 Zolpidem [Ambien] 10 mg PO QPM PRN 12/04/16 02/28/18 Polyethylene Glycol 3350 [Miralax] 17 gm PO DAILY PRN 11/01/17 02/28/18 hydrOXYzine pamoate [Hydroxyzine 25 mg PO Q6HR PRN 11/01/17 02/28/18 Pamoate] Albuterol Sulfate [Proair Hfa 2 puffs INH Q4H PRN 01/12/18 02/28/18 Inhaler] Ondansetron [Ondansetron Odt] 8 mg PO Q8H PRN 01/12/18 02/28/18 Telmisartan [Micardis] 40 mg PO DAILY 01/12/18 02/28/18 fentaNYL [Fentanyl 12mcg patch] 12 mcg TOP Q72H 01/12/18 02/28/18 glipiZIDE [Glipizide] 5 mg PO 0730 01/12/18 02/28/18 oxyCODONE [Roxicodone] 5 mg PO Q6H 02/28/18 02/28/18 - Allergies Allergies/Adverse Reactions: Allergies Allergy/AdvReac Type Severity Reaction Status Date / Time hydromorphone HCl * Allergy Unknown UNKNOWN Verified 01/12/18 14:26 [From Dilaudid] duloxetine Allergy Anxiety Verified 01/12/18 14:26 gabapentin Allergy Hallucinati Verified 01/12/18 14:26 ons levofloxacin [From Levaquin] Allergy Hallucinati Verified 01/12/18 14:26 ons morphine AdvReac Emesis Verified 01/12/18 14:26 - Social History Does the pt smoke?: Yes Smoking Status: Current every day smoker Does the pt drink ETOH?: No Does the pt have substance abuse?: No - Immunizations Immunizations are current?: Yes - POLST Patient has POLST: No PD ED PE NORMAL - Vitals Vital signs reviewed: Yes - General General: Alert and oriented X 3, Well developed/nourished - HEENT HEENT: PERRL (nonicteric), Pharynx benign - Neck Neck: Supple, no meningeal sign, No adenopathy - Cardiac Cardiac: No murmur. No: RRR (tachycardic) - Respiratory Respiratory: Clear bilaterally - Abdomen Abdomen: Normal bowel sounds, Soft, Non distended, No organomegaly, Other ( appears in pain and holding left upper abd. Tender LUQ and left mid abd with local guarding and some percussion tenderness. No general tenderness and no rebound. ) - Female Female : Deferred - Rectal Rectal: Deferred - Back Back: No CVA TTP - Derm Derm: Warm and dry. No: Normal color (somewhat pale) - Extremities Extremities: No deformity, No tenderness to palpate, No edema, No calf tenderness / cord - Neuro Neuro: Alert and oriented X 3, No motor deficit, Normal speech Results - Vitals Vitals: Vital Signs - 24 hr 02/28/18 02/28/18 02/28/18 00:00 05:17 07:49 Temperature 37.0 C 98.2 C H 97.8 C H Heart Rate [ 84 78 77 Brachial] Respiratory 18 12 16 Rate Blood Pressure 142/79 H 193/108 H 206/105 H [Left Brachial artery] O2 Saturation 100 98 99 Oxygen O2 Source Room air - Labs Labs: Microbiology 02/28/18 05:25 Clostridium difficile (PCR) - Final Stool 02/28/18 05:25 Campylobacter Antigen Assay - Final Stool Laboratory Tests 02/27/18 02/27/18 02/27/18 12:01 12:01 12:18 WBC 21.4 H Corrected WBC RBC 5.35 Hgb 16.0 Hct 47.7 H MCV 89.1 MCH 29.8 MCHC 33.5 RDW 13.4 Plt Count 310 MPV 9.0 Neut # 18.9 H Lymph # 1.0 L [place] # 1.4 H Eos # 0.0 Baso # 0.1 Absolute Nucleated RBC 0.01 Total Counted Neutrophils % (Manual) Band Neuts % (Manual) Lymphocytes % (Manual) Reactive Lymphs % (Man) Abnorm Lymph % (Manual) Monocytes % (Manual) Eosinophils % (Manual) Basophils % (Manual) Metamyelocytes % Myelocytes % Promyelocytes % Blast Cells % Plasma Cell % (Manual) Other Cells % Nucleated RBC % 0.0 Neutrophils # (Manual) Lymphocytes # (Manual) Monocytes # (Manual) Eosinophils # (Manual) Basophils # (Manual) Nucleated RBCs Differential Comment Manual Slide Review Indicated Platelet Estimate NORMAL (130-450,000) Platelet Morphology NORMAL APPEARANCE RBC Morph Micro Appear NORMAL APPEARANCE Sodium 132 L Potassium 3.1 L Chloride 91 L Carbon Dioxide 24 Anion Gap 17.0 H BUN 21 H Creatinine 1.5 H Estimated GFR (MDRD) 35 L Glucose 206 H POC Whole Bld Glucose Glycated Hemoglobin 6.4 H Estim Average Glucose 137 H Lactic Acid Calcium 10.4 H Magnesium Total Bilirubin 1.3 H AST 24 ALT 16 Alkaline Phosphatase 70 Total Protein 9.2 H Albumin 5.6 H Globulin 3.6 Albumin/Globulin Ratio 1.6 Lipase 14 L Urine Color Urine Clarity Urine pH Ur Specific [place] Urine Protein Urine Glucose (UA) Urine Ketones Urine Occult Blood Urine Nitrite Urine Bilirubin Urine Urobilinogen Ur Leukocyte Esterase Urine RBC Urine WBC Ur Squamous Epith Cells Urine Bacteria Urine Casts Ur Microscopic Review Urine Culture Comments Stool Leukocytes, Qual Ethyl Alcohol 02/27/18 02/27/18 02/27/18 13:25 13:25 16:22 WBC Corrected WBC RBC Hgb Hct MCV MCH MCHC RDW Plt Count MPV Neut # Lymph # [place] # Eos # Baso # Absolute Nucleated RBC Total Counted Neutrophils % (Manual) Band Neuts % (Manual) Lymphocytes % (Manual) Reactive Lymphs % (Man) Abnorm Lymph % (Manual) Monocytes % (Manual) Eosinophils % (Manual) Basophils % (Manual) Metamyelocytes % Myelocytes % Promyelocytes % Blast Cells % Plasma Cell % (Manual) Other Cells % Nucleated RBC % Neutrophils # (Manual) Lymphocytes # (Manual) Monocytes # (Manual) Eosinophils # (Manual) Basophils # (Manual) Nucleated RBCs Differential Comment Manual Slide Review Platelet Estimate Platelet Morphology RBC Morph Micro Appear Sodium Potassium Chloride Carbon Dioxide Anion Gap BUN Creatinine Estimated GFR (MDRD) Glucose POC Whole Bld Glucose Glycated Hemoglobin Estim Average Glucose Lactic Acid 1.9 Calcium Magnesium Total Bilirubin AST ALT Alkaline Phosphatase Total Protein Albumin Globulin Albumin/Globulin Ratio Lipase Urine Color YELLOW Urine Clarity CLEAR Urine pH 6.0 Ur Specific [place] 1.010 Urine Protein 100 H Urine Glucose (UA) NEGATIVE Urine Ketones TRACE Urine Occult Blood SMALL H Urine Nitrite NEGATIVE Urine Bilirubin NEGATIVE Urine Urobilinogen 0.2 (NORMAL) Ur Leukocyte Esterase NEGATIVE Urine RBC 0-5 Urine WBC 0-3 Ur Squamous Epith Cells MOD Squamous H Urine Bacteria None Seen Urine Casts 6-10 Hyaline Casts Ur Microscopic Review INDICATED Urine Culture Comments NOT INDICATED Stool Leukocytes, Qual Ethyl Alcohol < 5.0 02/27/18 02/28/18 02/28/18 20:27 04:55 04:55 WBC 10.8 Corrected WBC Cancelled RBC 4.71 Hgb 14.0 Hct 43.0 MCV 91.3 MCH 29.7 MCHC 32.6 RDW 13.5 Plt Count 236 MPV 8.7 Neut # 7.8 H Lymph # 2.0 [place] # 0.8 Eos # 0.1 Baso # 0.1 Absolute Nucleated RBC 0.01 Total Counted Cancelled Neutrophils % (Manual) Cancelled Band Neuts % (Manual) Cancelled Lymphocytes % (Manual) Cancelled Reactive Lymphs % (Man) Cancelled Abnorm Lymph % (Manual) Cancelled Monocytes % (Manual) Cancelled Eosinophils % (Manual) Cancelled Basophils % (Manual) Cancelled Metamyelocytes % Cancelled Myelocytes % Cancelled Promyelocytes % Cancelled Blast Cells % Cancelled Plasma Cell % (Manual) Cancelled Other Cells % Cancelled Nucleated RBC % 0.0 Neutrophils # (Manual) Cancelled Lymphocytes # (Manual) Cancelled Monocytes # (Manual) Cancelled Eosinophils # (Manual) Cancelled Basophils # (Manual) Cancelled Nucleated RBCs Cancelled Differential Comment Cancelled Manual Slide Review Platelet Estimate Platelet Morphology RBC Morph Micro Appear Sodium 138 Potassium 3.4 L Chloride 103 Carbon Dioxide 26 Anion Gap 9.0 BUN 18 Creatinine 0.9 Estimated GFR (MDRD) 63 L Glucose 134 H POC Whole Bld Glucose 126 H Glycated Hemoglobin Estim Average Glucose Lactic Acid Calcium 9.0 Magnesium 2.1 Total Bilirubin 1.4 H AST 17 ALT 11 Alkaline Phosphatase 50 Total Protein 6.7 Albumin 4.1 Globulin 2.6 Albumin/Globulin Ratio 1.6 Lipase Urine Color Urine Clarity Urine pH Ur Specific [place] Urine Protein Urine Glucose (UA) Urine Ketones Urine Occult Blood Urine Nitrite Urine Bilirubin Urine Urobilinogen Ur Leukocyte Esterase Urine RBC Urine WBC Ur Squamous Epith Cells Urine Bacteria Urine Casts Ur Microscopic Review Urine Culture Comments Stool Leukocytes, Qual Ethyl Alcohol 02/28/18 02/28/18 05:25 08:03 WBC Corrected WBC RBC Hgb Hct MCV MCH MCHC RDW Plt Count MPV Neut # Lymph # [place] # Eos # Baso # Absolute Nucleated RBC Total Counted Neutrophils % (Manual) Band Neuts % (Manual) Lymphocytes % (Manual) Reactive Lymphs % (Man) Abnorm Lymph % (Manual) Monocytes % (Manual) Eosinophils % (Manual) Basophils % (Manual) Metamyelocytes % Myelocytes % Promyelocytes % Blast Cells % Plasma Cell % (Manual) Other Cells % Nucleated RBC % Neutrophils # (Manual) Lymphocytes # (Manual) Monocytes # (Manual) Eosinophils # (Manual) Basophils # (Manual) Nucleated RBCs Differential Comment Manual Slide Review Platelet Estimate Platelet Morphology RBC Morph Micro Appear Sodium Potassium Chloride Carbon Dioxide Anion Gap BUN Creatinine Estimated GFR (MDRD) Glucose POC Whole Bld Glucose 172 H Glycated Hemoglobin Estim Average Glucose Lactic Acid Calcium Magnesium Total Bilirubin AST ALT Alkaline Phosphatase Total Protein Albumin Globulin Albumin/Globulin Ratio Lipase Urine Color Urine Clarity Urine pH Ur Specific [place] Urine Protein Urine Glucose (UA) Urine Ketones Urine Occult Blood Urine Nitrite Urine Bilirubin Urine Urobilinogen Ur Leukocyte Esterase Urine RBC Urine WBC Ur Squamous Epith Cells Urine Bacteria Urine Casts Ur Microscopic Review Urine Culture Comments Stool Leukocytes, Qual POSITIVE Ethyl Alcohol - Rads (name of study) abd CT Radiology: Prelim report reviewed (diverticulosis extensive without noted diverticulitis. cholelithiasis without cholecystitis. Prior right renal mass is decreased in size. ), EMP read contemporaneously PD MEDICAL DECISION MAKING - ED course Complexity details: re-evaluated patient (still considerable pain and some nausea despite several doses of meds. Has elevated WBC and continue pain without obvious cause. Consider diverticulitits not seen on CT. Could be GE. Has had C.Diff in the past, but the amount of pain does not seem right and she has minimal diarrhea. ), considered differential, d/w patient, d/w portfolio consultant ( Dr. Hernandez, hospitalist) Departure - Departure Disposition: 66 [facility] DC/Xfer Clinical Impression: Dehydration Abdominal pain Qualifiers: Abdominal location: left upper quadrant Qualified Code(s): R10.12 - Left upper quadrant pain Vomiting Qualifiers: Vomiting type: unspecified Vomiting Intractability: intractable Nausea presence : with nausea Qualified Code(s): R11.2 - Nausea with vomiting, unspecified Record reviewed to determine appropriate education?: Yes Discharge Date/Time: 02/27/18 19:15
[2018-02-27] MEDS ORDERED: SODIUM CHLORIDE 0.9% 1,000 ML IV ONE ×2 (13:07→13:10)
[2018-02-27] MEDS ORDERED: ONDANSETRON 4 MG/2 ML VIAL IVP STA ×2 (13:07→15:13)
[2018-02-27] MEDS ORDERED: fentaNYL 100 MCG/2 ML VIAL IVP STA (13:09)
[2018-02-27] MEDS ORDERED: ACETAMINOPHEN 1,000 MG/100 ML 100 ML IV STA (13:10)
[2018-02-27] MEDS ORDERED: IOPAMIDOL-300 100 ML VIAL ONE (14:00)
--- NOTE | 2018-02-27 14:50 | CT Report ---
EXAM: CT ABDOMEN AND PELVIS EXAM DATE: 02/27/2018 02:29 PM. CLINICAL HISTORY: Upper abd pain and vomiting. COMPARISONS: 11/01/2017. TECHNIQUE: Routine helical CT imaging was performed through the abdomen and pelvis. IV contrast: ISOV UE 300 50mL. Enteric contrast: No. Reconstructions: Coronal and sagittal. In accordance with CT protocol optimization, one or more of the following dose reduction techniques w ere utilized for this exam: automated exposure control, adjustment of mA and/or KV based on patient s ize, or use of iterative reconstructive technique. FINDINGS: Lung Bases: Unremarkable. Liver: Normal. No masses. Gallbladder/Bile Ducts: Multiple tiny stones. No ductal dilation. Spleen: Normal. Pancreas: Normal. Adrenal Glands: Mild bilateral adrenal thickening similar to previous exam. Kidneys: Decreased size of right upper pole mass now measuring 1.5 cm compared to 2.8 cm in previous exam. Probable cortical cysts elsewhere. No definite stone or hydronephrosis. Peritoneal Cavity/Bowel: Moderate to marked colonic diverticulosis. No free fluid, free air or adenop athy. No masses or acute inflammatory process. The appendix is well visualized and normal. Pelvic Organs: Unremarkable decompressed urinary bladder. Mildly atrophic uterus. Numerous pelvic phl eboliths. Vasculature: No aneurysms or other significant abnormality. Bones: Extensive postoperative changes. Other: None. IMPRESSION: 1. Cholelithiasis. 2. Moderate to marked diverticulosis, but no definite diverticulitis at this time. 3. Decreased size of right upper renal mass. 4. Other chronic or incidental findings. [facility] Referring Provider Line: [phone] SITE ID: [id number]
[2018-02-27] MEDS ORDERED: MAG HYDROX/AL HYDROX/SIMETH 30 ML UDC PO STA (15:13)
[2018-02-27] MEDS ORDERED: diphenhydrAMINE INJ 50 MG/ML VIAL IVP STA (15:13)
[2018-02-27] MEDS ORDERED: LIDOCAINE VISCOUS 2% 15 ML UDC MM STA (15:13)
[2018-02-27] MEDS ORDERED: HYDROmorphone 2 MG/ML VIAL IVP STA (15:13)
[2018-02-27] MEDS ORDERED: metroNIDAZOLE 500 MG/100 ML 500 MG/100 ML BAG IV ONE (15:14)
[2018-02-27] MEDS ORDERED: IOPAMIDOL-300 100 ML VIAL IVP ONE (15:15)
[2018-02-27 16:34] LABS: BILIRUBIN,URINE NEGATIVE (NEGATIVE); GLUCOSE, URINE (UA) NEGATIVE (NEGATIVE); KETONES,URINE (UA) TRACE mg/dL (NEGATIVE); LEUKOCYTE ESTERASE, URINE NEGATIVE (NEGATIVE); NITRITE,URINE NEGATIVE (NEGATIVE); OCCULT BLOOD,URINE SMALL (NEGATIVE); PROTEIN,URINE 100 mg/dL (NEGATIVE); UROBILINOGEN,URINE 0.2 (NORMAL) E.U./dL (NORMAL)
[2018-02-27 16:38] LABS: CLARITY,URINE CLEAR (CLEAR)
[2018-02-27 16:46] LABS: RBC,URINE 0-5 /HPF (0-5)
[2018-02-27 16:47] LABS: BACTERIA,URINE None Seen /HPF (None Seen); CASTS, URINE 6-10 Hyaline Casts /LPF; SQUAMOUS EPITHELIAL CELL,UR MOD Squamous (<= Few)
[2018-02-27] MEDS ORDERED: METOCLOPRAMIDE 10 MG/2 ML VIAL IVP STA (17:45)
[2018-02-27] MEDS ORDERED: PROCHLORPERAZINE 10 MG/2 ML VIAL IVP PRN (18:09)
[2018-02-27] MEDS ORDERED: ZOLPIDEM 5 MG TABLET PO PRN (18:09)
[2018-02-27] MEDS ORDERED: HYDROmorphone 0.5 MG/0.5 ML SYRINGE IVP PRN (18:09)
[2018-02-27] MEDS ORDERED: PROMETHAZINE 25 MG/1 ML VIAL IM PRN (18:09)
[2018-02-27] MEDS ORDERED: ACETAMINOPHEN 325 MG TABLET PO PRN (18:09)
[2018-02-27] MEDS ORDERED: ALBUTEROL NEB 2.5 MG/3 ML INH PRN (18:29)
--- NOTE | 2018-02-27 18:30 | HISTORY & PHYSICAL EXAMINATION ---
Chief Complaint - Chief Complaint Chief Complaint: nausea, vomiting and abdominal pain History of Present Illness - Admitted From Admitted From:: ER - History Obtained From History obtained from: Pt - History of Present Illness HPI Comment/Other: Troy is 63-yrs-old female with a PMH significant for 4 prior episodes of C.Diff, diverticulitis, current Cannabis user with recurrence of nausea, vomiting and abdominal pain, DM2, HTN, who present ER complaints of persistent nausea, vomiting, and abdominal pain. She report her symptoms started two days ago, with nausea and large of vomiting volume. She also report she noted her vomiting with bloody staining, about 10-20 ml blood with clots. She report she had loose stool but not diarrhea yet. She report she used to have C.Diff diarrhea. She report her abdominal pain located at epigastric area, pain scale at 8/10. She denies fever, chill, chest pain, shortness of breathing. Her CT on today is unremarkable, does not support her symptoms. Lab test today reveals hyponatremia and hypokalemia, and elevated creatinine, hyperglycemia, and elevated WBC. Pt is admitted in observation unit for further evaluation and treatment of above symptoms. History - Past Medical History Cardiovascular: reports: Hypertension Respiratory: reports: None Endocrine/Autoimmune: reports: Type 2 diabetes GI: reports: GERD, Ulcers, Hiatal hernia, C.difficile, Diverticulitis WEBBING TACKER: reports: None : reports: None HEENT: reports: None Psych: reports: Anxiety Musculoskeletal: reports: Fibromyalgia, Chronic back pain Derm: reports: Other MRSA Hx?: No - Past Surgical History General: reports: Appendectomy, Bowel surgery Ortho: reports: Carpal Tunnel surgery, Spine surgery Neuro: reports: Radical neck - Family & Social History Family History: Mother: , CAD, Diabetes, Type 2, Father: , CAD, CVA/TIA Family History Comment/Other: pt is living at [place] with her . Pt had one daughter at 35 yrs. Living arrangement: At home Living Situation: With spouse/s.o. Social History Notes: pt report she regularly use Cannabis for pain control. She denies cigarette smoking, alcoholic and drug problem. - Substance History Abuse: Recurrent use of substance despite neg consequences: Cannabis Dependence: Experiences withdrawal or developed tolerances: Cannabis - POLST Patient has POLST: No POLST Status: Full Code Meds/Allgy - Home Medications Home Medications: Ambulatory Orders Medication Instructions Recorded Confirmed Simvastatin 40 mg PO QPM 11/25/15 02/28/18 Carvedilol [Coreg] 6.25 mg PO BID 12/04/16 02/28/18 Zolpidem [Ambien] 10 mg PO QPM PRN 12/04/16 02/28/18 Polyethylene Glycol 3350 [Miralax] 17 gm PO DAILY PRN 11/01/17 02/28/18 hydrOXYzine pamoate [Hydroxyzine 25 mg PO Q6HR PRN 11/01/17 02/28/18 Pamoate] Albuterol Sulfate [Proair Hfa 2 puffs INH Q4H PRN 01/12/18 02/28/18 Inhaler] Ondansetron [Ondansetron Odt] 8 mg PO Q8H PRN 01/12/18 02/28/18 Telmisartan [Micardis] 40 mg PO DAILY 01/12/18 02/28/18 fentaNYL [Fentanyl 12mcg patch] 12 mcg TOP Q72H 01/12/18 02/28/18 glipiZIDE [Glipizide] 5 mg PO 0730 01/12/18 02/28/18 oxyCODONE [Roxicodone] 5 mg PO Q6H 02/28/18 02/28/18 - Allergies Allergies/Adverse Reactions: Allergies Allergy/AdvReac Type Severity Reaction Status Date / Time hydromorphone HCl * Allergy Unknown UNKNOWN Verified 01/12/18 14:26 [From Dilaudid] duloxetine Allergy Anxiety Verified 01/12/18 14:26 gabapentin Allergy Hallucinati Verified 01/12/18 14:26 ons levofloxacin [From Levaquin] Allergy Hallucinati Verified 01/12/18 14:26 ons morphine AdvReac Emesis Verified 01/12/18 14:26 Review of Systems - Constitutional Constitutional: denies: Fatigue, Fever, Chills, Malaise, Weakness, Poor appetite , Diaphoresis, Night sweats - Eyes Eyes: denies: Pain, Irritation, Amaurosis, Blurred vision, Spots in vision, Field loss, Vision loss, Dipolpia - Ears, Nose & Throat Ears, Nose & Throat: denies: Ear pain, Hearing loss, Hearing aids, Tinnitus, Nasal pain, Nasal discharge, Nosebleeds, Nasal obstruction, Nasal congestion, Postnasal drainage, Sore throat, Mouth lesions, Bleeding gums - Cardiovascular Cariovascular: denies: Irregular heart rate, Palpitations, Chest pain, Edema, Lightheadedness, Syncope, Exertional dyspnea, Decr. exercise tolerance - Respiratory Respiratory: denies: Cough, Sputum production, Wheezing, Hemoptysis, Orthopnea, SOB at rest, SOB with exertion - Gastrointestinal Gastrointestinal: reports: Abdominal pain, Change in bowel habits, Nausea, Vomiting, Octavio blood emesis. denies: Abdominal distention, Constipation, Diarrhea, Rectal bleeding, Black stools, Bloody stools, Bile emesis, Coffee grounds emesis, Reflux/heartburn, Bloating - Genitourinary Genitourinary: denies: Dysuria, Frequency, Urgency, Hematuria, Incontinence, Flank pain, Nocturia, Urethral discharge - Musculoskeletal Musculoskeletal: denies: Muscle pain, Back pain, Muscle aches, Stiffness, Limited range of motion, Muscle weakness, Gout, Joint pain - Integumentary Integumentary: denies: Rash, Pruritis, Lesions, Dryness, Lumps, Acne, Pigment changes - Neurological Neurological: denies: General weakness, Focal weakness, Headache, Dizziness, Numbness, Memory problems, Pre-existing deficit, Abnormal gait, Seizures, Incoordination, Slurred speech - Psychiatric Psychiatric: denies: Depression, Anxiety, Suicidal, Delusions, Hallucinations, Homicidal - Endocrine Endocrine: denies: Polyuria, Polydypsia, Polyphagia, Intolerance to cold - Hematologic/Lymphatic Hematologic/Lymphatic: denies: Anemia, Bruising, Petechiae, Blood clots, Lymphadenopathy, Bleeding tendencies Exam - Vital Signs Reviewed Vital Signs: Yes Vital Signs: Vital Signs x48h Temp Pulse Resp BP Pulse Ox 02/27/18 18:21 95 17 139/84 H 97 02/27/18 11:53 36.7 C 101 H 18 177/116 H 99 - Physical Exam General Appearance: positive: No acute distress, Alert. negative: Lethargic Eyes Bilateral: positive: Normal inspection, PERRL, No lid inflammation, Conjunctivae nml ENT: positive: ENT inspection nml, Pharynx nml. negative: Purulent nasal drainage, Pharyngeal erythema, Oral lesions Neck: positive: Nml inspection, Thyroid nml, No JVD, Trachea midline. negative : Thyromegaly, Lymphadenopathy (R), Lymphadenopathy (L), Stiff neck, Carotid bruit, Swelling/bruising, Tracheal deviation Respiratory: positive: Chest non-tender, No respiratory distress, Breath sounds nml. negative: Wheezes, Rales, Rhonchi Cardiovascular: positive: Regular rate & rhythm, No murmur, No gallop. negative : Irregularly irregular, Extrasystoles, Tachycardia, Bradycardia, JVD present, Systolic murmur, Diastolic murmur Peripheral Pulses: positive: 2+ Abdomen: positive: No organomegaly, Nml bowel sounds, No distention, Tenderness. negative: Guarding, Rebound Back: positive: Nml inspection. negative: CVA tenderness (R), CVA tenderness (L ) Skin: positive: Color nml, No rash, Warm, Dry. negative: Cyanosis, Diaphoresis , Pallor Extremities: positive: Non-tender, Full ROM, Nml appearance. negative: Calf tenderness, Joint swelling, Jessica's sign/cords Neurologic/Psychiatric: positive: Oriented x3, Motor nml, Sensation nml. negative: Weakness, Sensory loss, Facial droop, Slurred/abnml speech, Depressed mood/affect Conclusion/Plan - Problem List (1) Bloody vomitus Conclusion/Plan: pt report she had once bloody stain of vomiting about 10-20 ml blood with clots , no more as far. Pt's HGB is 16 now, hemodynamical stable. CT of abdomen is unremarkable. Pt denies alcohol abuse and varies medical problem. H&H consult with surgery for possible EGD lab test, vital monitor, closely monitor by floor nurse. (2) Nausea & vomiting Conclusion/Plan: recurrence problem, pt is currently regularly consume Cannabis, with DM2, CT of abdomen unremarkable. IVF, correct electrolytic antiemesis PRN support care (3) Abdominal pain Conclusion/Plan: CT of abdomen unremarkable, recurrence problem pain control follow up GI surgery if EGD Protonix IV bid (4) DM2 (diabetes mellitus, type 2) Conclusion/Plan: resume home medication check A1C ACHS, slide scale hypoglycemia protocol (5) HTN (hypertension) Conclusion/Plan: resume home, add PRN hydralazine, and Clonidine vital monitor (6) Renal insufficiency Conclusion/Plan: hydration with IVF daily lab monitor (7) Hypokalemia Conclusion/Plan: replacement with potassium daily lab monitor (8) Hyponatremia Conclusion/Plan: IVF of NS, daily lab monitor (9) DVT prophylaxis Conclusion/Plan: SCD only, due to bloody vomiting (10) Full code status Conclusion/Plan: pt request full code - Lab Results Fish Bones: 02/28/18 04:55 02/28/18 04:55 Core Measures - Anticipated LOS I expect patient to be DC'd or transferred within 96 hours.: Yes - DVT/VTE - Prophylaxis VTE/DVT Device ordered at admit?: Yes VTE/DVT Prophylaxis med ordered at admit?: Yes
[2018-02-27] MEDS ORDERED: SODIUM CHLORIDE 0.9% 1,000 ML IV SCH (19:00)
[2018-02-27] MEDS: PANTOPRAZOLE 40 MG VIAL IVP SCH (19:37)
[2018-02-27] MEDS: NS W/20 MEQ KCL 1,000 ML IV SCH (19:38)
[2018-02-27] MEDS: POTASSIUM CHLOR 10 MEQ/100 ML 10 MEQ/100 ML BAG IV SCH ×2 (19:42→21:24)
[2018-02-27 19:46] LABS: HB2 TOTAL 18.4 g/dL; HEMOGLOBIN A1C 0.86 g/dL; HEMOGLOBIN A1C % 6.4 % (4.6-6.2)
[2018-02-27] MEDS ORDERED: INSULIN ASPART 300 UNIT/3 ML PEN SUBQ SCH (21:00)
[2018-02-27] MEDS: SODIUM CHLORIDE FLUSH 0.9% 10 ML SYRINGE IVP SCH (21:24)
[2018-02-27] MEDS: ONDANSETRON 4 MG/2 ML VIAL IVP PRN (21:32)
[2018-02-27] MEDS: CARVEDILOL 3.125 MG TABLET PO SCH (22:13)
[2018-02-27] MEDS: CALCIUM CARBONATE CHEW 500 MG TABLET PO SCH (22:57)
[2018-02-28] MEDS ORDERED: MORPHINE 2 MG/ML SYRINGE IVP PRN (00:44)
[2018-02-28] MEDS: LOSARTAN 50 MG TABLET PO SCH ×2 (01:14→22:12)
[2018-02-28] MEDS: SODIUM CHLORIDE FLUSH 0.9% 10 ML SYRINGE IVP SCH ×3 (01:17→17:49)
[2018-02-28 05:20] LABS: BASOPHILS # (AUTO) 0.1 10^3/uL (0.0-0.1); BASOPHILS % (AUTO) 0.6 %; EOSINOPHILS # (AUTO) 0.1 10^3/uL (0.0-0.7); EOSINOPHILS % (AUTO) 1.4 %; LYMPHOCYTES % (AUTO) 18.2 %; MEAN CORPUSCULAR HEMOGLOBIN 29.7 pg (27.0-31.0); MEAN CORPUSCULAR HGB CONC 32.6 g/dL (32.0-36.0); MEAN CORPUSCULAR VOLUME 91.3 fL (81.0-99.0); MEAN PLATELET VOLUME 8.7 fL (7.9-10.8); MONOCYTES # (AUTO) 0.8 10^3/uL (0.0-1.0); MONOCYTES % (AUTO) 7.3 %; NEUTROPHILS # (AUTO) 7.8 10^3/uL (1.5-6.6); NEUTROPHILS % (AUTO) 72.5 %; PLT - PLATELET COUNT 236 10^3/uL (130-450); RED BLOOD COUNT 4.71 10^6/uL (4.20-5.40); RED CELL DISTRIBUTION WIDTH 13.5 % (12.0-15.0); WHITE BLOOD COUNT 10.8 x10^3/uL (4.8-10.8)
[2018-02-28 05:27] LABS: ALBUMIN 4.1 g/dL (3.2-5.5); ALBUMIN/GLOBULIN RATIO 1.6 (1.0-2.2); BILIRUBIN,TOTAL 1.4 mg/dL (0.2-1.0); CREATININE 0.9 mg/dL (0.4-1.0); MAGNESIUM 2.1 mg/dL (1.7-2.8); TOTAL PROTEIN 6.7 g/dL (6.7-8.2)
[2018-02-28] MEDS: NS W/20 MEQ KCL 1,000 ML IV SCH ×2 (05:50→17:49)
[2018-02-28] MEDS: PANTOPRAZOLE 40 MG VIAL IVP SCH ×2 (06:47→18:07)
[2018-02-28] MEDS: SODIUM CHLORIDE FLUSH 0.9% 10 ML SYRINGE IVP PRN (06:48)
[2018-02-28] MEDS ORDERED: fentaNYL 12 MCG PATCH TOP SCH (08:00)
[2018-02-28] MEDS ORDERED: hydrALAZINE INJ 20 MG/ML VIAL IVP PRN (08:05)
[2018-02-28] MEDS ORDERED: cloNIDine 0.1 MG TABLET PO PRN (08:06)
[2018-02-28] MEDS ORDERED: POTASSIUM CHLOR 10 MEQ/100 ML 10 MEQ/100 ML BAG IV ONE (08:24)
[2018-02-28] MEDS: ONDANSETRON 4 MG/2 ML VIAL IVP PRN (08:39)
[2018-02-28] MEDS: CARVEDILOL 3.125 MG TABLET PO SCH ×2 (08:40→22:12)
[2018-02-28] MEDS: CALCIUM CARBONATE CHEW 500 MG TABLET PO SCH ×3 (08:40→22:12)
[2018-02-28] MEDS: HYDROcod/ACETAM 5/325 MG TABLET PO PRN (08:40)
[2018-02-28] MEDS: POLYETHYLENE GLYCOL 3350 17 GM PACKET PO SCH (08:42)
[2018-02-28] MEDS: VANCOMYCIN 125 MG CAPSULE PO SCH ×4 (08:43→22:17)
[2018-02-28] MEDS ORDERED: TELMISARTAN 40 MG PO SCH (09:00)
[2018-02-28] MEDS ORDERED: LOSARTAN 50 MG TABLET PO SCH (09:00)
[2018-02-28] MEDS ORDERED: VANCOMYCIN 125 MG CAPSULE PO SCH (09:00)
[2018-02-28] MEDS ORDERED: LORazepam 2 MG/ML VIAL IVP PRN (10:14)
--- NOTE | 2018-02-28 15:43 | PROVIDER PROGRESS NOTE ---
Subjective - Prog Note Date Prog Note Date: 02/28/18 - Subjective Pt reports feeling: Improved Subjective: pt report her N/V and abdominal pain is becoming better. Pt had diarrhea last night. C.Diff test is positive. pt denies chest pain, SOB, fever, chill, cough. Current Medications - Current Medications Current Medications: Active Medications Acetaminophen (Tylenol) 650 mg PO Q4HR PRN PRN Reason: Pain 1 to 4 Last Admin: 02/27/18 22:31 Dose: 650 mg Acetaminophen/Hydrocodone Bitart ([place] 5/325) 1 tab PO Q4HR PRN PRN Reason: moderate pain Last Admin: 02/28/18 08:40 Dose: 1 tab Albuterol () 2.5 mg INH RTQ4H PRN PRN Reason: Wheezing Atorvastatin Calcium (Lipitor) 20 mg PO QPM [facility] Calcium Carbonate/Glycine (Tums) 500 mg PO BID [facility] Last Admin: 02/28/18 08:40 Dose: 500 mg Carvedilol (Coreg) 6.25 mg PO BID [facility] Last Admin: 02/28/18 08:40 Dose: 6.25 mg Clonidine HCl (Catapres) 0.1 mg PO BID PRN PRN Reason: Hypertensive Emergency Last Admin: 02/28/18 08:40 Dose: 0.1 mg Fentanyl (Duragesic) 1 patch TOP Q3D [facility] Last Admin: 02/28/18 08:41 Dose: 1 patch Glipizide (Glucotrol) 5 mg PO 0730 [facility] Hydralazine HCl (Apresoline Inj) 10 mg IVP TID PRN PRN Reason: Hypertensive Emergency Potassium Chloride/Sodium Chloride (Normal Saline 0.9% W/20 Meq Kcl) 1,000 mls @ 100 mls/hr IV .Q10H [facility] Last Admin: 02/28/18 05:50 Dose: 100 mls/hr Lorazepam (Ativan Inj (Vial)) 0.5 mg IVP Q2H PRN PRN Reason: Anxiety Losartan Potassium (Cozaar) 50 mg PO QPM [facility] Last Admin: 02/28/18 01:14 Dose: 50 mg Morphine Sulfate (Morphine) 2 mg IVP Q2H PRN PRN Reason: severe PAIN Ondansetron HCl (Zofran Inj) 4 mg IVP Q6HR PRN PRN Reason: Nausea / Vomiting Last Admin: 02/28/18 08:39 Dose: 4 mg Pantoprazole Sodium (Protonix) 40 mg IVP BIDAC [facility] Last Admin: 02/28/18 06:47 Dose: 40 mg Polyethylene Glycol (Miralax) 17 gm PO DAILY [facility] Last Admin: 02/28/18 08:42 Dose: Not Given Prochlorperazine Edisylate (Compazine Inj) 10 mg IVP Q6HR PRN PRN Reason: Nausea / Vomiting Promethazine HCl (Phenergan Inj) 25 mg IM Q6HR PRN PRN Reason: Nausea / Vomiting Sodium Chloride (Normal Saline Flush 0.9%) 10 ml IVP PRN PRN PRN Reason: NEEDED PER PROVIDER ORDERS Last Admin: 02/28/18 06:48 Dose: 10 ml Sodium Chloride (Normal Saline Flush 0.9%) 10 ml IVP 0100,0900,1700 [facility] Last Admin: 02/28/18 11:45 Dose: Not Given Vancomycin HCl (Vancocin) 125 mg PO QID [facility] Last Admin: 02/28/18 12:03 Dose: 125 mg Zolpidem Tartrate (Ambien) 5 mg PO QPM PRN PRN Reason: Insomnia Simvastatin 40 mg PO QPM 11/25/15 Carvedilol [Coreg] 6.25 mg PO BID 12/04/16 Zolpidem [Ambien] 10 mg PO QPM PRN 12/04/16 Polyethylene Glycol 3350 [Miralax] 17 gm PO DAILY PRN 11/01/17 hydrOXYzine pamoate [Hydroxyzine Pamoate] 25 mg PO Q6HR PRN 11/01/17 Albuterol Sulfate [Proair Hfa Inhaler] 2 puffs INH Q4H PRN 01/12/18 Ondansetron [Ondansetron Odt] 8 mg PO Q8H PRN 01/12/18 Telmisartan [Micardis] 40 mg PO DAILY 01/12/18 fentaNYL [Fentanyl 12mcg patch] 12 mcg TOP Q72H 01/12/18 glipiZIDE [Glipizide] 5 mg PO 0730 01/12/18 oxyCODONE [Roxicodone] 5 mg PO Q6H 02/28/18 Objective - Vital Signs/Intake & Output Reviewed Vital Signs: Yes Vital Signs: Vital Signs x48h Pulse Resp BP Pulse Ox 02/28/18 12:07 79 14 176/95 H 99 Intake & Output: Intake & Output 02/25/18 02/26/18 02/27/18 02/28/18 23:59 23:59 23:59 23:59 Intake Total 100 Balance 100 - Objective General Appearance: positive: No acute distress, Alert. negative: Lethargic Eyes Bilateral: positive: Normal inspection, PERRL, No lid inflammation, Conjunctivae nml ENT: positive: ENT inspection nml, Pharynx nml, No signs of dehydration. negative: Purulent nasal drainage, Pharyngeal erythema, Oral lesions Neck: positive: Nml inspection, Thyroid nml, No JVD, Trachea midline. negative : Thyromegaly, Lymphadenopathy (R), Lymphadenopathy (L), Stiff neck, Swelling/ bruising, Tracheal deviation Respiratory: positive: Chest non-tender, No respiratory distress, Breath sounds nml. negative: Wheezes, Rales, Rhonchi Cardiovascular: positive: Regular rate & rhythm, No murmur, No gallop. negative : Irregularly irregular, Extrasystoles, Tachycardia, Bradycardia, JVD present, Systolic murmur, Diastolic murmur Peripheral Pulses: 2+ Radial (R), 2+ Radial (L), 2+ Dorsalis pedis (R), 2+ Dorsalis pedis (L) Abdomen: positive: Non-tender, No organomegaly, Nml bowel sounds, No distention. negative: Tenderness, Guarding, Rebound Back: positive: Nml inspection. negative: CVA tenderness (R), CVA tenderness (L ) Skin: positive: Color nml, No rash, Warm, Dry. negative: Cyanosis, Diaphoresis , Pallor, Skin rash Extremities: positive: Non-tender, Full ROM, Nml appearance. negative: Calf tenderness, Joint swelling, Jessica's sign/cords Neurologic/Psychiatric: positive: Oriented x3, Motor nml, Sensation nml, Mood/ affect nml. negative: Sensory loss, Facial droop, Slurred/abnml speech, Depressed mood/affect - Lab Results Fish Bones: 02/28/18 04:55 02/28/18 04:55 Other Labs: Lab Results x24hrs 02/28/18 Range/Units 11:42 POC Whole Bld Glucose 149 H (70 - 100) mg/dL ABX Reporting Has patient been on IV antibiotics over the past 48 hours?: Yes Assessment/Plan - Problem List (1) Bloody vomitus Impression: (1) Bloody vomitus Conclusion/Plan: no more, hemodynamically stable. HGB 14 H&H follow up surgeon pt report she had once bloody stain of vomiting about 10-20 ml blood with clots , no more as far. Pt's HGB is 16 now, hemodynamical stable. CT of abdomen is unremarkable. Pt denies alcohol abuse and varies medical problem. H&H consult with surgery for possible EGD lab test, vital monitor, closely monitor by floor nurse. (2) Nausea & vomiting Conclusion/Plan: better, continue antiemesis PRN recurrence problem, pt is currently regularly consume Cannabis, with DM2, CT of abdomen unremarkable. IVF, correct electrolytic antiemesis PRN support care (3) Abdominal pain Conclusion/Plan: better controlled pain than before continue pain control CT of abdomen unremarkable, recurrence problem pain control follow up GI surgery if EGD Protonix IV bid (4) DM2 (diabetes mellitus, type 2) Conclusion/Plan: resume home medication check A1C ACHS, slide scale hypoglycemia protocol (5) HTN (hypertension) Conclusion/Plan: continue monitor, esume home, add PRN hydralazine, and Clonidine esume home, add PRN hydralazine, and Clonidine vital monitor (6) Renal insufficiency Conclusion/Plan: great improved continue lab test hydration with IVF daily lab monitor (7) Hypokalemia Conclusion/Plan: replacement with potassium daily lab monitor (8) diarrhea C.dff is positive, pt had diarrhea on last night PO vancomyin
[2018-02-28 19:05] LABS: HGB - HEMOGLOBIN 13.3 g/dL (12.0-16.0)
[2018-02-28] MEDS ORDERED: ATORVASTATIN 10 MG TABLET PO SCH (21:00)
[2018-03-01] MEDS: HYDROcod/ACETAM 5/325 MG TABLET PO PRN (01:22)
[2018-03-01] MEDS: SODIUM CHLORIDE FLUSH 0.9% 10 ML SYRINGE IVP SCH ×2 (01:23→06:12)
[2018-03-01] MEDS: NS W/20 MEQ KCL 1,000 ML IV SCH (02:59)
[2018-03-01 04:52] LABS: BASOPHILS # (AUTO) 0.1 10^3/uL (0.0-0.1); BASOPHILS % (AUTO) 0.6 %; EOSINOPHILS # (AUTO) 0.1 10^3/uL (0.0-0.7); EOSINOPHILS % (AUTO) 1.3 %; HGB - HEMOGLOBIN 12.7 g/dL (12.0-16.0); LYMPHOCYTES % (AUTO) 22.9 %; MEAN CORPUSCULAR HEMOGLOBIN 29.3 pg (27.0-31.0); MEAN CORPUSCULAR HGB CONC 32.3 g/dL (32.0-36.0); MEAN CORPUSCULAR VOLUME 90.7 fL (81.0-99.0); MEAN PLATELET VOLUME 8.6 fL (7.9-10.8); MONOCYTES # (AUTO) 0.7 10^3/uL (0.0-1.0); MONOCYTES % (AUTO) 8.3 %; NEUTROPHILS # (AUTO) 5.7 10^3/uL (1.5-6.6); NEUTROPHILS % (AUTO) 66.9 %; PLT - PLATELET COUNT 225 10^3/uL (130-450); RED BLOOD COUNT 4.34 10^6/uL (4.20-5.40); RED CELL DISTRIBUTION WIDTH 13.6 % (12.0-15.0); WHITE BLOOD COUNT 8.5 x10^3/uL (4.8-10.8)
[2018-03-01 05:07] LABS: ALBUMIN 3.7 g/dL (3.2-5.5); ALBUMIN/GLOBULIN RATIO 1.5 (1.0-2.2); CALCIUM 8.9 mg/dL (8.5-10.3); CREATININE 0.9 mg/dL (0.4-1.0); TOTAL PROTEIN 6.1 g/dL (6.7-8.2)
[2018-03-01] MEDS: PANTOPRAZOLE 40 MG VIAL IVP SCH (06:11)
[2018-03-01] MEDS: SODIUM CHLORIDE FLUSH 0.9% 10 ML SYRINGE IVP PRN (06:12)
[2018-03-01] MEDS ORDERED: glipiZIDE 5 MG TABLET PO SCH (07:30)
[2018-03-01] MEDS: CARVEDILOL 3.125 MG TABLET PO SCH (08:53)
[2018-03-01] MEDS: VANCOMYCIN 125 MG CAPSULE PO SCH ×2 (08:53→12:33)
[2018-03-01] MEDS: POLYETHYLENE GLYCOL 3350 17 GM PACKET PO SCH (08:54)
--- NOTE | 2018-03-01 10:58 | Discharge Plan ---
Discharge Plan Disposition: Home, Self Care Condition: Stable Prescriptions: Calcium Carbonate [Tums (Calcium Carbonate 500mg)] 500 mg PO BID PRN #15 tablet PRN Reason: Heartburn Ondansetron HCl [Zofran] 4 mg PO Q6H PRN #15 tablet PRN Reason: Nausea / Vomiting Telmisartan [Micardis] 80 mg PO DAILY #20 tablet Vancomycin [Vancocin] 125 mg PO QID #60 capsule Diet: Diabetic Activity Restrictions: Activity as Tolerated Shower Restrictions: No (fall precaution) Weight Bearing: Full Weight Instruction Topics: Vancomycin capsules, Telmisartan tablets, Clostridium Difficile Toxin Stool, Nausea Vomit Control, Abuse Marijuana Additional Instructions or Follow Up instructions: You may follow up your PCP in 2-3 days. Discuss with you about Cannabis usage, advise pt quit. You have a diagnosis of C.Diff at this hospital, PO of Vancomycin is prescribed to you for two weeks. Should your symptoms return or worsen, you may present ER or call 911 for help. No Smoking: If you smoke, Please STOP! Call for help. Follow-up with: Luis Blanc MD [Primary Care Provider] -
--- NOTE | 2018-03-01 11:21 | DISCHARGE SUMMARY ---
Discharge Summary Discharge Date: 03/01/18 Discharging Provider: GRIGGS Primary Care Provider: Luis Leger Condition at Discharge: Stable Discharge Disposition: 01 Home, Self Care Discharge Facility Name: home - DIAGNOSES Admission Diagnoses: (1) Bloody vomitus (2) Nausea & vomiting (3) Abdominal pain (4) DM2 (diabetes mellitus, type 2) (5) HTN (hypertension) (6) Renal insufficiency (7) Hypokalemia (8) Hyponatremia Discharge Diagnoses with Status of Each Condition: (1) Bloody vomitus no more bloody vomiting. pt state it is just strain from vomiting. pt decline for further evaluation. (2) Nausea & vomiting controlled. pt tolerate the diet, and pt request to be d/c to home. (3) Abdominal pain resolved. CT of abdomen is unremarkable. (4) DM2 (diabetes mellitus, type 2) stable. continue home regime, managed by PCP (5) HTN (hypertension) stable. (6) Renal insufficiency stable. (7) Hypokalemia resolved (8) diarrhea recurrence of C.Diff. Pt is prescribed PO vancomycin to continue finish the antibiotics course. - HPI History of Present Illness: Ms. Simmons is 63-yrs-old female with a PMH significant for 4 prior episodes of C.Diff, diverticulitis, current Cannabis user with recurrence of nausea, vomiting and abdominal pain, DM2, HTN, who present ER complaints of persistent nausea, vomiting, and abdominal pain. She report her symptoms started two days ago, with nausea and large of vomiting volume. She also report she noted her vomiting with bloody staining, about 10-20 ml blood with clots. She report she had loose stool but not diarrhea yet. She report she used to have C.Diff diarrhea. She report her abdominal pain located at epigastric area, pain scale at 8/10. She denies fever, chill, chest pain, shortness of breathing. Her CT on today is unremarkable, does not support her symptoms. Lab test today reveals hyponatremia and hypokalemia, and elevated creatinine, hyperglycemia, and elevated WBC. Pt is admitted in observation unit for further evaluation and treatment of above symptoms. - ALLERGIES Allergies/Adverse Reactions: Allergies Allergy/AdvReac Type Severity Reaction Status Date / Time hydromorphone HCl * Allergy Unknown UNKNOWN Verified 01/12/18 14:26 [From Dilaudid] duloxetine Allergy Anxiety Verified 01/12/18 14:26 gabapentin Allergy Hallucinati Verified 01/12/18 14:26 ons levofloxacin [From Levaquin] Allergy Hallucinati Verified 01/12/18 14:26 ons morphine AdvReac Emesis Verified 01/12/18 14:26 - MEDICATIONS Home Medications: Ambulatory Orders Medication Instructions Recorded Confirmed Simvastatin 40 mg PO QPM 11/25/15 02/28/18 Carvedilol [Coreg] 6.25 mg PO BID 12/04/16 02/28/18 Zolpidem [Ambien] 10 mg PO QPM PRN 12/04/16 02/28/18 Polyethylene Glycol 3350 [Miralax] 17 gm PO DAILY PRN 11/01/17 02/28/18 hydrOXYzine pamoate [Hydroxyzine 25 mg PO Q6HR PRN 11/01/17 02/28/18 Pamoate] Albuterol Sulfate [Proair Hfa 2 puffs INH Q4H PRN 01/12/18 02/28/18 Inhaler] Ondansetron [Ondansetron Odt] 8 mg PO Q8H PRN 01/12/18 02/28/18 fentaNYL [Fentanyl 12mcg patch] 12 mcg TOP Q72H 01/12/18 02/28/18 glipiZIDE [Glipizide] 5 mg PO 0730 01/12/18 02/28/18 oxyCODONE [Roxicodone] 5 mg PO Q6H 02/28/18 02/28/18 Calcium Carbonate [Tums (Calcium 500 mg PO BID PRN #15 tablet 03/01/18 Carbonate 500mg)] Ondansetron HCl [Zofran] 4 mg PO Q6H PRN #15 tablet 03/01/18 Telmisartan [Micardis] 80 mg PO DAILY #20 tablet 03/01/18 Vancomycin [Vancocin] 125 mg PO QID #60 capsule 03/01/18 Vancomycin [Vancocin] 125 mg PO QID #60 capsule 03/02/18 - PHYSICAL EXAM AT DISCHARGE General Appearance: positive: No acute distress, Alert. negative: Lethargic Eyes Bilateral: positive: Normal inspection, PERRL, No lid inflammation, Conjunctivae nml ENT: positive: ENT inspection nml, Pharynx nml, No signs of dehydration. negative: Purulent nasal drainage, Pharyngeal erythema, Oral lesions Neck: positive: Nml inspection, Thyroid nml, No JVD, Trachea midline. negative : Thyromegaly, Lymphadenopathy (R), Lymphadenopathy (L), Stiff neck, Carotid bruit, Swelling/bruising, Tracheal deviation Respiratory: positive: Chest non-tender, No respiratory distress, Breath sounds nml. negative: Wheezes, Rales, Rhonchi Cardiovascular: positive: Regular rate & rhythm, No murmur, No gallop. negative : Irregularly irregular, Extrasystoles, Tachycardia, Bradycardia, JVD present, Systolic murmur, Diastolic murmur Peripheral Pulses: positive: 2+ Abdomen: positive: Non-tender, No organomegaly, Nml bowel sounds, No distention. negative: Tenderness, Guarding, Rebound Back: positive: Nml inspection. negative: CVA tenderness (R), CVA tenderness (L ) Skin: positive: Color nml, No rash, Warm, Dry. negative: Cyanosis, Diaphoresis , Pallor Extremities: positive: Non-tender, Full ROM, Nml appearance. negative: Calf tenderness, Joint swelling, Jessica's sign/cords Neurologic/Psychiatric: positive: Oriented x3, Motor nml, Sensation nml, Mood/ affect nml. negative: Weakness, Sensory loss, Facial droop, Slurred/abnml speech, Depressed mood/affect - LABS Result Diagrams: 03/01/18 04:35 03/01/18 04:35 - FOLLOW UP Follow Up: You may follow up your PCP in 2-3 days. You have a diagnosis of C.Diff at this hospital, PO of Vancomycin is prescribed to you for two weeks. Should your symptoms return or worsen, you may present ER or call 911 for help. - TIME SPENT Time Spent in Discharge (Minutes): 45
[2018-03-01 12:28] VITALS: BP 179/93
[2018-03-01] MEDS ORDERED: cloNIDine 0.1 MG TABLET PO SCH (13:00)
== END 2018-03-01 13:00 | disposition home or self-care (01) | DRG 372 ==
LOC: ED 11:29 → MS3 18:09 → OBSVTOIN 02-28 10:15
PROVIDERS: ADMIT Nurse Practitioner Gerontology; ATTEND Nurse Practitioner Gerontology
DX: A04.71 Enterocolitis due to Clostridium difficile, recurrent (principal); R10.12 Left upper quadrant pain; R10.13 Epigastric pain; D72.829 Elevated white blood cell count, unspecified; E86.0 Dehydration; K92.0 Hematemesis; E87.1 Hypo-osmolality and hyponatremia; I10 Essential (primary) hypertension; R10.812 Left upper quadrant abdominal tenderness; K57.30 Diverticulosis of large intestine without perforation or abscess without bleeding; N28.9 Disorder of kidney and ureter, unspecified; E87.6 Hypokalemia; K21.9 Gastro-esophageal reflux disease without esophagitis; K44.9 Diaphragmatic hernia without obstruction or gangrene; F12.20 Cannabis dependence, uncomplicated; M79.7 Fibromyalgia; G89.29 Other chronic pain; M54.9 Dorsalgia, unspecified; Z87.11 Personal history of peptic ulcer disease; E11.65 Type 2 diabetes mellitus with hyperglycemia; Z87.19 Personal history of other diseases of the digestive system; Z79.899 Other long term (current) drug therapy; Z79.84 Long term (current) use of oral hypoglycemic drugs; Z86.19 Personal history of other infectious and parasitic diseases; Z79.891 Long term (current) use of opiate analgesic
CPT/HCPCS: 36415; 74177; 80053; 80306; 80307; 80320; 81001; 81003; 83036; 83605; 83630; 83690; 83735; 85014; 85018; 85025; 87045; 87046; 87086; 87493; 96361; 96365; 96366; 96367; 96375; 96376; 99283; 99285

== ENCOUNTER 2018-04-24 15:51 | Inpatient (IN) | payer MEDICARE, OTHER ==
[2018-04-24] MEDS ORDERED: SODIUM CHLORIDE 0.9% 1,000 ML IV ONE ×2 (16:33→18:10)
[2018-04-24] MEDS ORDERED: ONDANSETRON 4 MG/2 ML VIAL IVP STA ×2 (16:33→20:13)
--- NOTE | 2018-04-24 16:47 | ED Physician Documentation ---
PD HPI NVD - Stated complaint Stated Complaint: AB PX/ NAUSEA/ VOMITING - Chief complaint Chief Complaint: Abd Pain - History obtained from History obtained from: Patient - History of Present Illness Timing - onset: How many days ago (4) Timing - details: Gradual onset, Still present Associated symptoms: Fever, Abdominal pain, Loss of appetite Similar symptoms before: Work up / diagnostics, Treatment Recently seen: Not recently seen - Additonal information Additional information: patient is a 63 year old female with a history of c diff and colitis who is presenting to the emergency department for nausea, diarrhea and not feeling well. patient states that she has had night sweats for years and recently took off her fentanyl patches to see if it would help with the night sweats. 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 : None HEENT: None Psych: Anxiety Musculoskeletal: Fibromyalgia, Chronic back pain Derm: Other - Past Surgical History Past Surgical History: Yes General: Appendectomy, Bowel surgery Ortho: Carpal Tunnel surgery, Spine surgery Neuro: Radical neck - Present Medications Home Medications: Ambulatory Orders Medication Instructions Recorded Confirmed Simvastatin 40 mg PO QPM 11/25/15 02/28/18 Carvedilol [Coreg] 6.25 mg PO BID 12/04/16 02/28/18 Polyethylene Glycol 3350 [Miralax] 17 gm PO DAILY PRN 11/01/17 02/28/18 Albuterol Sulfate [Proair Hfa 2 puffs INH Q4H PRN 01/12/18 02/28/18 Inhaler] Ondansetron [Ondansetron Odt] 8 mg PO Q8H PRN 01/12/18 02/28/18 fentaNYL [Fentanyl 12mcg patch] 12 mcg TOP Q72H 01/12/18 02/28/18 glipiZIDE [Glipizide] 5 mg PO 0730 01/12/18 02/28/18 oxyCODONE [Roxicodone] 5 mg PO Q6H 02/28/18 02/28/18 Telmisartan [Micardis] 80 mg PO DAILY #20 tablet 03/01/18 Beclomethasone Dipropionate [Qvar 10.6 gm IH 04/24/18 Redihaler] Ofloxacin 5 ml OT 04/24/18 Pseudoephedrine HCl [Nasal 30 mg PO 04/24/18 04/24/18 Decongestant] - Allergies Allergies/Adverse Reactions: Allergies Allergy/AdvReac Type Severity Reaction Status Date / Time hydromorphone HCl * Allergy Unknown UNKNOWN Verified 04/24/18 17:08 [From Dilaudid] duloxetine Allergy Anxiety Verified 04/24/18 17:08 gabapentin Allergy Hallucinati Verified 04/24/18 17:08 ons levofloxacin [From Levaquin] Allergy Hallucinati Verified 04/24/18 17:08 ons morphine AdvReac Emesis Verified 04/24/18 17:08 - Social History Does the pt smoke?: Yes Smoking Status: Current every day smoker Does the pt drink ETOH?: No Does the pt have substance abuse?: No - Immunizations Immunizations are current?: Yes - POLST Patient has POLST: No POLST Status: Full Code PD ED PE NORMAL - Vitals Vital signs reviewed: Yes - General General: Alert and oriented X 3 - HEENT HEENT: Atraumatic - Cardiac Cardiac: RRR - Respiratory Respiratory: No respiratory distress - Derm Derm: Normal color, Warm and dry - Extremities Extremities: No deformity - Neuro Neuro: Alert and oriented X 3, No motor deficit Eye Opening: Spontaneous PD ED PE EXPANDED - General General: Alert, In Pain - HEENT HEENT: Dry mucous membranes - Abdomen Abdomen: Tender to palpation, Generalized/diffuse. No: Rebound, Guarding Results - Vitals Vitals: Vital Signs - 24 hr 04/24/18 04/24/18 16:00 18:43 Temperature 36.0 C L Heart Rate 91 91 Respiratory 18 18 Rate Blood Pressure 170/107 H 176/95 H O2 Saturation 100 99 Oxygen O2 Source Room air - Labs Labs: Microbiology 04/24/18 16:59 Clostridium difficile (PCR) - Final Stool Laboratory Tests 04/24/18 04/24/18 04/24/18 16:46 16:46 16:46 WBC 14.0 H RBC 4.97 Hgb 14.4 Hct 44.5 MCV 89.5 MCH 29.0 MCHC 32.4 RDW 13.8 Plt Count 333 MPV 8.3 Neut # (Auto) 12.9 H Lymph # (Auto) 0.7 L Hooker # (Auto) 0.3 Eos # (Auto) 0.0 Baso # (Auto) 0.1 Absolute Nucleated RBC 0.00 Nucleated RBC % 0.0 Sodium 136 Potassium 3.7 Chloride 99 L Carbon Dioxide 21 Anion Gap 16.0 H BUN 19 Creatinine 1.1 H Estimated GFR (MDRD) 50 L Glucose 209 H Lactic Acid 1.4 Calcium 10.0 Total Bilirubin 0.9 AST 18 ALT 14 Alkaline Phosphatase 84 Total Protein 8.7 H Albumin 4.7 Globulin 4.0 Albumin/Globulin Ratio 1.2 Lipase 18 L Urine Color Urine Clarity Urine pH Ur Specific [place] Urine Protein Urine Glucose (UA) Urine Ketones Urine Occult Blood Urine Nitrite Urine Bilirubin Urine Urobilinogen Ur Leukocyte Esterase Urine RBC Urine WBC Ur Squamous Epith Cells Urine Bacteria Ur Microscopic Review Urine Culture Comments 04/24/18 17:34 WBC RBC Hgb Hct MCV MCH MCHC RDW Plt Count MPV Neut # (Auto) Lymph # (Auto) Hooker # (Auto) Eos # (Auto) Baso # (Auto) Absolute Nucleated RBC Nucleated RBC % Sodium Potassium Chloride Carbon Dioxide Anion Gap BUN Creatinine Estimated GFR (MDRD) Glucose Lactic Acid Calcium Total Bilirubin AST ALT Alkaline Phosphatase Total Protein Albumin Globulin Albumin/Globulin Ratio Lipase Urine Color YELLOW Urine Clarity CLEAR Urine pH 7.0 Ur Specific [place] 1.015 Urine Protein NEGATIVE Urine Glucose (UA) 250 H Urine Ketones 15 H Urine Occult Blood SMALL H Urine Nitrite NEGATIVE Urine Bilirubin NEGATIVE Urine Urobilinogen 0.2 (NORMAL) Ur Leukocyte Esterase NEGATIVE Urine RBC 0-5 Urine WBC 4-5 Ur Squamous Epith Cells FEW Squamous Urine Bacteria None Seen Ur Microscopic Review INDICATED Urine Culture Comments NOT INDICATED PD MEDICAL DECISION MAKING - ED course Complexity details: reviewed old records, reviewed results, re-evaluated patient , considered differential, d/w patient ED course: Patient was seen and examined at bedside. IV access was gained and labs were drawn. Patient was treated with a fluid bolus and zofran. stool sample was collected. Imaging was ordered but patient refused. Patient was found to be c diff positive. Patient was treated with flagyl since she was unable to tolerate PO. Hospitalist was contacted and the patient was admitted for further evaluation and care. - Sepsis Event Vital Signs: Vital Signs - 24 hr 04/24/18 04/24/18 16:00 18:43 Temperature 36.0 C L Heart Rate 91 91 Respiratory 18 18 Rate Blood Pressure 170/107 H 176/95 H O2 Saturation 100 99 Oxygen O2 Source Room air Departure - Departure Disposition: ED Place in Observation Clinical Impression: C. difficile diarrhea Condition: Good
[2018-04-24 16:54] LABS: BASOPHILS # (AUTO) 0.1 10^3/uL (0.0-0.1); BASOPHILS % (AUTO) 0.6 %; HGB - HEMOGLOBIN 14.4 g/dL (12.0-16.0); LYMPHOCYTES # (AUTO) 0.7 10^3/uL (1.5-3.5); LYMPHOCYTES % (AUTO) 5.2 %; MEAN CORPUSCULAR HGB CONC 32.4 g/dL (32.0-36.0); MEAN CORPUSCULAR VOLUME 89.5 fL (81.0-99.0); MEAN PLATELET VOLUME 8.3 fL (7.9-10.8); MONOCYTES # (AUTO) 0.3 10^3/uL (0.0-1.0); MONOCYTES % (AUTO) 2.1 %; NEUTROPHILS # (AUTO) 12.9 10^3/uL (1.5-6.6); NEUTROPHILS % (AUTO) 92.1 %; PLT - PLATELET COUNT 333 10^3/uL (130-450); RED BLOOD COUNT 4.97 10^6/uL (4.20-5.40); RED CELL DISTRIBUTION WIDTH 13.8 % (12.0-15.0)
[2018-04-24 17:07] LABS: ALBUMIN 4.7 g/dL (3.2-5.5); ALBUMIN/GLOBULIN RATIO 1.2 (1.0-2.2); BILIRUBIN,TOTAL 0.9 mg/dL (0.2-1.0); CREATININE 1.1 mg/dL (0.4-1.0); TOTAL PROTEIN 8.7 g/dL (6.7-8.2)
[2018-04-24 17:39] LABS: BILIRUBIN,URINE NEGATIVE (NEGATIVE); GLUCOSE, URINE (UA) 250 mg/dL (NEGATIVE); KETONES,URINE (UA) 15 mg/dL (NEGATIVE); LEUKOCYTE ESTERASE, URINE NEGATIVE (NEGATIVE); NITRITE,URINE NEGATIVE (NEGATIVE); OCCULT BLOOD,URINE SMALL (NEGATIVE); PROTEIN,URINE NEGATIVE (NEGATIVE); UROBILINOGEN,URINE 0.2 (NORMAL) E.U./dL (NORMAL)
[2018-04-24 17:44] LABS: CLARITY,URINE CLEAR (CLEAR)
[2018-04-24 17:51] LABS: BACTERIA,URINE None Seen /HPF (None Seen); RBC,URINE 0-5 /HPF (0-5); SQUAMOUS EPITHELIAL CELL,UR FEW Squamous (<= Few)
[2018-04-24] MEDS ORDERED: metroNIDAZOLE 500 MG/100 ML 500 MG/100 ML BAG IV ONE (19:35)
[2018-04-24] MEDS ORDERED: ONDANSETRON ODT 4 MG TABLET TL PRN (21:02)
[2018-04-24] MEDS ORDERED: ACETAMINOPHEN 325 MG TABLET PO PRN (21:02)
[2018-04-24] MEDS ORDERED: fentaNYL 12 MCG PATCH TOP SCH (22:00)
[2018-04-24 22:14] LABS: MUDS CUTOFF CONCENTRATIONS CUTOFF CONC BELOW:
--- NOTE | 2018-04-24 22:20 | HISTORY & PHYSICAL EXAMINATION ---
Chief Complaint - Chief Complaint Chief Complaint: nausea, vomitting, diarrhea w abd pain History of Present Illness - Admitted From Admitted From:: Emergency room/home - History Obtained From Records Reviewed: [facility] [place] History obtained from: Patient Exam Limitations: Constant dry heaving - History of Present Illness HPI Comment/Other: This is an unfortunate 63-year-old white female who has carried the diagnosis of cyclical vomiting in the past due to cannabis use, and in spite of giving up cannabis in the last year, has continued to have episodes of nausea and vomiting. A gastric emptying study was negative in April 2013. In addition to nausea and vomiting from cyclical vomiting syndrome, the patient has had nausea vomiting and generalized abdominal pain for many, many episodes of Clostridium difficile enterocolitis. She first began having enterocolitis in April 2015. She has gone on to have it at least 6 more time since then. She has been treated with oral vancomycin most recently February 2018. In the past she was also treated with Flagyl. She was asked to do a fecal transplant in February 2016. She was hospitalized at [facility] to get an elective redo fusion of L2 through S1. The surgery ended up taking 9 hours, and she was in the hospital for many many days. She was in ICU. As such, she never ended up getting the fecal transplant because she had been so ill during that hospitalization. Between February 2016 and now she has not had any problems with nausea, vomiting, diarrhea, until February 2018. She was just discharged with 10 days of oral vancomycin. She had done well with regards to her GI tract until about 4 or 5 days ago. "Doing well" is a relative thing for her. She always has vague nausea, poor appetite, dyspepsia, reflux but it was no worse than usual. Chronic back pain is an issue and she takes oxycodone as needed as well as been put on a fentanyl patch. She has years of night sweats as a complaint. Thinking that the fentanyl was making the sweats worse, she stopped her fentanyl cold turkey about 4 days ago. At that point her nausea vomiting, abdominal pain, and diarrhea recurred with ferocity. The pain is generalized, an 8 out of a 10. Nonradiating. Emesis is usually bile. No hematemesis. She did have flecks of blood in the February 2018 emesis. She does have a history of peptic ulcer disease in the remote past. With this current episode there is no flecks of blood. Diarrhea is liquid, brownish liquid. No blood, no blackness. She denies fevers , chills, rigors. Again, she has ferocious night sweats and has done so since at least 2012. She will soak through everything. She was evaluated by Dr. Alonso who found her to be hypertensive, tachycardic , and a white cell count of 14,000. She has been unable to take her blood pressure medicine for the last 2 days. He also found her to have a low chloride at 99, increased anion gap is 16, and a random glucose 11/17/2008. There is a small amount of ketones in her urine. As such she is placed in observation for recurrent diarrhea, possibly C. difficile colitis. Elevated white cell count, elevated glucose, intractable nausea vomiting, and dehydration. History - Past Medical History Cardiovascular: reports: Hypertension, High cholesterol Respiratory: reports: Asthma (Extrinsic) Endocrine/Autoimmune: reports: Type 2 diabetes (With complications of peripheral neuropathy, controlled, not on insulin) GI: reports: GERD, Ulcers, Hiatal hernia, C.difficile (Off and on since April 2015 transferred), Diverticulitis (July 2013. 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 Redo ablation September 2017) HEENT: reports: None Psych: reports: Anxiety, Other (Insomnia) Musculoskeletal: reports: Osteoarthritis (Fibromyalgia of the knees), Fibromyalgia, Chronic back pain, Other (Lumbar stenosis) Derm: reports: Other (Stout Molly epidermal bullosa) MRSA Hx?: No - Past Surgical History General: reports: Appendectomy (As an infant), Bowel surgery, Colonoscopy ( Approximately 1994) Ortho: reports: Carpal Tunnel surgery, Spine surgery (Lumbar fusion and lumbar laminectomy L4-L5, L5-S1, in 2011. Redo fusion L2-S1 February 2016) Neuro: reports: Radical neck - Family & Social History Family History: Mother: , CAD, Diabetes, Type 2, Father: , CAD, CVA/TIA Family History Comment/Other: Father of carcinoid of his appendix at age 73. He had a history of coronary artery disease and hypertension. Mom of stage IV colon cancer October 2017. One sister of multiple sclerosis at the age of 61. One sister is healthy. Her only brother just this last Monday in an ATV accident in [place]. 36-year-old daughter is healthy Living arrangement: At home Living Situation: With spouse/s.o. Social History Notes: She has been disabled since 2007. 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 living at [place] with her . Pt had one daughter at 35 yrs. Former smoker of one quarter pack per day for 5 years. She never had a problem with alcohol use or recreational substance abuse. She has been disabled since 2007 because of chronic pain syndrome. She used to use cannabis on a frequent basis - Substance History Use: Uses substance without health or social issues: NONE Abuse: Recurrent use of substance despite neg consequences: NONE Dependence: Experiences withdrawal or developed tolerances: NONE - POLST Patient has POLST: No POLST Status: Full Code Meds/Allgy - Home Medications Home Medications: Ambulatory Orders Medication Instructions Recorded Confirmed Simvastatin 40 mg PO QPM 11/25/15 02/28/18 Carvedilol [Coreg] 6.25 mg PO BID 12/04/16 02/28/18 Polyethylene Glycol 3350 [Miralax] 17 gm PO DAILY PRN 11/01/17 02/28/18 Albuterol Sulfate [Proair Hfa 2 puffs INH Q4H PRN 01/12/18 02/28/18 Inhaler] Ondansetron [Ondansetron Odt] 8 mg PO Q8H PRN 01/12/18 02/28/18 fentaNYL [Fentanyl 12mcg patch] 12 mcg TOP Q72H 01/12/18 02/28/18 glipiZIDE [Glipizide] 5 mg PO 0730 01/12/18 02/28/18 oxyCODONE [Roxicodone] 5 mg PO Q6H 02/28/18 02/28/18 Telmisartan [Micardis] 80 mg PO DAILY #20 tablet 03/01/18 Beclomethasone Dipropionate [Qvar 10.6 gm IH 04/24/18 Redihaler] Ofloxacin 5 ml OT 04/24/18 Pseudoephedrine HCl [Nasal 30 mg PO 04/24/18 04/24/18 Decongestant] - Allergies Allergies/Adverse Reactions: Allergies Allergy/AdvReac Type Severity Reaction Status Date / Time hydromorphone HCl * Allergy Unknown UNKNOWN Verified 04/24/18 17:08 [From Dilaudid] duloxetine Allergy Anxiety Verified 04/24/18 17:08 gabapentin Allergy Hallucinati Verified 04/24/18 17:08 ons levofloxacin [From Levaquin] Allergy Hallucinati Verified 04/24/18 17:08 ons morphine AdvReac Emesis Verified 04/24/18 17:08 Review of Systems - Constitutional Constitutional: reports: Fatigue, Malaise, Weakness, Poor appetite, Night sweats - Eyes Eyes: denies: Pain, Irritation, Amaurosis, Blurred vision, Field loss - Ears, Nose & Throat Ears, Nose & Throat: reports: Nasal obstruction, Nasal congestion, Hoarseness. denies: Ear pain, Hearing loss, Hearing aids, Tinnitus, Vertigo - Cardiovascular Cariovascular: denies: Irregular heart rate, Palpitations, Chest pain, Edema - Respiratory Respiratory: reports: Cough (This week), Sputum production (This week), Wheezing (This week) - Gastrointestinal Gastrointestinal: reports: Abdominal pain, Abdominal distention, Diarrhea, Nausea, Vomiting, Bile emesis, Reflux/heartburn, Poor appetite. denies: Black stools, Bloody stools, Octavio blood emesis, Coffee grounds emesis, Bloating - Genitourinary Genitourinary: denies: Dysuria, Frequency, Urgency, Hematuria - Musculoskeletal Musculoskeletal: reports: Back pain. denies: Limited range of motion, Muscle weakness, Gout - Integumentary Integumentary: reports: Lesions (From her epidermal bullosa). denies: Rash, Pruritis, Dryness - Neurological Neurological: reports: General weakness. denies: Focal weakness, Headache, Dizziness, Numbness, Memory problems, Pre-existing deficit, Slurred speech - Psychiatric Psychiatric: reports: Anxiety, Other (Under a lot of stress right now. Her mom in October of this year of a stage IV cancer. Brother came down from [place] to take care of all his affairs and had packed up the house and taking it up to [place] with him. As he was unloading the ATV, something fell on him and he was killed just this last Monday.). denies: Suicidal, Delusions, Hallucinations - Endocrine Endocrine: reports: Intolerance to cold. denies: Polyuria, Polydypsia, Polyphagia - Hematologic/Lymphatic Hematologic/Lymphatic: reports: Anemia. denies: Bruising, Petechiae, Blood clots, Lymphadenopathy Exam - Vital Signs Reviewed Vital Signs: Yes Vital Signs: Vital Signs x48h Temp Pulse Pulse Resp BP BP Pulse Ox 04/24/18 22:10 36.8 C 78 16 174/95 H 100 04/24/18 21:06 36.1 C L 101 H 20 151/94 H 97 04/24/18 18:43 91 18 176/95 H 99 04/24/18 16:00 36.0 C L 91 18 170/107 H 100 - Physical Exam General Appearance: positive: Alert, Moderate distress (Constant dry heaving as I speak to her) Eyes Bilateral: positive: PERRL, EOMI ENT: positive: Dry mucous membranes Neck: positive: No JVD. negative: Lymphadenopathy (R), Lymphadenopathy (L), Stiff neck, Carotid bruit Respiratory: positive: Chest non-tender, Wheezes, Other (No cough during exam, no shortness of breath and no increased respiratory effort). negative: Rales, Rhonchi Cardiovascular: positive: Regular rate & rhythm, Tachycardia, Systolic murmur, Other (Hypertension noted). negative: Gallop/S4, Friction rub Peripheral Pulses: positive: 2+ Abdomen: positive: Tenderness. negative: Guarding, Rebound, Hepatomegaly, Splenomegaly Skin: positive: Warm, Diaphoresis, Pallor Extremities: positive: Non-tender, No pedal edema Neurologic/Psychiatric: positive: Oriented x3, CN's nml (2-12), Motor nml, Weakness (Generalized, but able to get out of the gurney, sit from a lying position, transferred to a standing position and walk a few steps to get into her room bed without any difficulty or aid) Conclusion/Plan - Problem List (1) Intractable nausea and vomiting Conclusion/Plan: This is a chronic complaint for her, with intermittent bouts of stability in between episodes of the nausea and vomiting. In the past, this was attributed to her use of cannabis. Now, most recently is at a part of her C. difficile enterocolitis. Now there is the added differential diagnosis of opioid withdrawal since she stopped her fentanyl a few days ago. 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 We will treat symptomatically with Zofran, Compazine, IV fluids for hydration, and possibly Haldol as a one-time dose I have called her primary care provider, Dr. Blanc, and left a message for him to call the hospitalist tomorrow. She may need to be set up for another fecal transplant. Qualifiers: Vomiting type: cyclical vomiting Qualified Code(s): G43.A1 - Cyclical vomiting, intractable (2) C. difficile diarrhea Conclusion/Plan: Unfortunately her nausea and vomiting are severe. She did finish her 10 day course of oral vancomycin after her last stay in February. When she is able to take p.o., resume oral vancomycin as well as IV vancomycin. White cell count is elevated but not above 15,000. Plan: We will check KUB to see how dilated her bowel is. CT of abd pelvis cancelled in ER.. Aggressive IV fluids Oral vancomycin as well as IV vancomycin Consider fecal transplant in the outpatient setting (3) Controlled type 2 diabetes mellitus with complication, without long-term current use of insulin Conclusion/Plan: She has ketones in her urine, anion gap is elevated. Stop her oral medication. Check glucose before meals and at at bedtime Low-dose sliding scale short-acting insulin Check A1c (4) Essential hypertension Conclusion/Plan: Currently not at goal. She is uncontrolled because she has been unable to take her medications for the last 2 days. We will resume her metoprolol because of tachycardia. She is a diabetic and I would lean toward an SANCHEZ inhibitor IV, because she is dehydrated we will hold off on that for right now. See how well she does with just the metoprolol IV. If still needs further treatment, consider clonidine patch to avoid emesis of medication (5) IRINA (acute kidney injury) Conclusion/Plan: from dehydration and glucose elevation. IBF w 0.9 NS. recheck in am. - Lab Results Fish Bones: 04/24/18 16:46 04/24/18 16:46 Core Measures - Anticipated LOS I expect patient to be DC'd or transferred within 96 hours.: Yes - DVT/VTE - Prophylaxis VTE/DVT Device ordered at admit?: Yes
[2018-04-24 22:30] LABS: AMPHETAMINE SCREEN,URINE NEGATIVE (NEGATIVE); BENZODIAZEPINES SCREEN, URINE NEGATIVE (NEGATIVE); COCAINE SCREEN URINE NEGATIVE (NEGATIVE); METHADONE SCREEN, URINE NEGATIVE (NEGATIVE); METHAMPHETAMINES SCREEN, URINE NEGATIVE (NEGATIVE); OPIATE SCREEN, URINE NEGATIVE (NEGATIVE); TRICYCLIC ANTIDEPRESSANT,URINE NEGATIVE (NEGATIVE)
[2018-04-24] MEDS: SODIUM CHLORIDE 0.9% 1,000 ML IV SCH (22:30)
[2018-04-24 22:31] LABS: OXYCODONE SCREEN, URINE NEGATIVE (NEGATIVE); PROPOXYPHENE SCREEN, URINE NEGATIVE (NEGATIVE)
[2018-04-24] MEDS: SODIUM CHLORIDE FLUSH 0.9% 10 ML SYRINGE IVP PRN (22:31)
[2018-04-24] MEDS: oxyCODONE 5 MG TABLET PO SCH (22:40)
[2018-04-24] MEDS ORDERED: HALOPERIDOL 5 MG/ML VIAL IM STA (22:44)
[2018-04-24] MEDS ORDERED: HYDROmorphone 2 MG/ML VIAL IVP PRN (22:49)
[2018-04-24] MEDS: SODIUM CHLORIDE FLUSH 0.9% 10 ML SYRINGE IVP SCH (23:51)
[2018-04-24] MEDS: CALCIUM CARBONATE CHEW 500 MG TABLET PO SCH (23:51)
[2018-04-24] MEDS: PANTOPRAZOLE 40 MG VIAL IVP SCH (23:51)
[2018-04-25 00:32] LABS: HB2 TOTAL 16.4 g/dL; HEMOGLOBIN A1C 0.79 g/dL; HEMOGLOBIN A1C % 6.6 % (4.6-6.2)
--- NOTE | 2018-04-25 01:20 | XRAY Report ---
Procedure Date: 04/25/2018 Accession Number: [id number] / [id number] Procedure: XR - Abdomen 2 View X-Ray CPT Code: 52928 FULL RESULT: EXAM: ABDOMEN RADIOGRAPHY EXAM DATE: 04/25/2018 12:03 AM. CLINICAL HISTORY: Nausea, vomiting, abdominal pain, history of diverticulitis, Clostridium difficile. COMPARISON: ABDOMEN/PELVIS W/ 02/27/2018. TECHNIQUE: 2 views. FINDINGS: Lung Bases: Unremarkable. Bowel Gas Pattern: Within normal limits. No dilated loops or abnormal fluid levels. Free Air: None. Other: Prior lumbosacral fusion. IMPRESSION: Negative 2-view abdomen x-ray. RADIA
[2018-04-25] MEDS: oxyCODONE 5 MG TABLET PO SCH ×4 (03:57→21:22)
[2018-04-25 05:55] LABS: BASOPHILS # (AUTO) 0.1 10^3/uL (0.0-0.1); BASOPHILS % (AUTO) 0.4 %; EOSINOPHILS % (AUTO) 0.2 %; HGB - HEMOGLOBIN 13.9 g/dL (12.0-16.0); LYMPHOCYTES # (AUTO) 1.5 10^3/uL (1.5-3.5); LYMPHOCYTES % (AUTO) 10.1 %; MEAN CORPUSCULAR HEMOGLOBIN 29.4 pg (27.0-31.0); MEAN CORPUSCULAR HGB CONC 32.7 g/dL (32.0-36.0); MEAN CORPUSCULAR VOLUME 90.1 fL (81.0-99.0); MONOCYTES # (AUTO) 0.9 10^3/uL (0.0-1.0); MONOCYTES % (AUTO) 6.3 %; NEUTROPHILS # (AUTO) 12.2 10^3/uL (1.5-6.6); PLT - PLATELET COUNT 315 10^3/uL (130-450); RED BLOOD COUNT 4.73 10^6/uL (4.20-5.40); RED CELL DISTRIBUTION WIDTH 13.4 % (12.0-15.0); WHITE BLOOD COUNT 14.7 x10^3/uL (4.8-10.8)
[2018-04-25] MEDS ORDERED: VANCOMYCIN 500 MG VIAL PR SCH (06:00)
[2018-04-25 06:02] LABS: CALCIUM 8.9 mg/dL (8.5-10.3); CREATININE 0.9 mg/dL (0.4-1.0)
[2018-04-25] MEDS: SODIUM CHLORIDE FLUSH 0.9% 10 ML SYRINGE IVP PRN ×2 (06:04→06:18)
[2018-04-25] MEDS: VANCOMYCIN 125 MG CAPSULE PO SCH ×4 (06:04→20:26)
[2018-04-25] MEDS: PANTOPRAZOLE 40 MG VIAL IVP SCH (06:04)
[2018-04-25] MEDS: SODIUM CHLORIDE 0.9% 1,000 ML IV SCH ×3 (06:05→21:21)
[2018-04-25] MEDS: METOPROLOL 5 MG/5 ML VIAL IVP PRN (06:18)
[2018-04-25] MEDS ORDERED: hydrALAZINE INJ 20 MG/ML VIAL IVP PRN (07:48)
[2018-04-25] MEDS ORDERED: POTASSIUM CHLORIDE 20 MEQ TABLET PO ONE (08:00)
[2018-04-25] MEDS: CARVEDILOL 3.125 MG TABLET PO SCH ×2 (08:34→20:26)
[2018-04-25] MEDS: CALCIUM CARBONATE CHEW 500 MG TABLET PO SCH ×2 (08:34→20:26)
[2018-04-25] MEDS: POLYETHYLENE GLYCOL 3350 17 GM PACKET PO SCH (08:35)
[2018-04-25] MEDS: SODIUM CHLORIDE FLUSH 0.9% 10 ML SYRINGE IVP SCH ×2 (08:35→17:11)
[2018-04-25] MEDS: INSULIN ASPART 300 UNIT/3 ML PEN SUBQ SCH ×4 (08:42→21:22)
[2018-04-25] MEDS ORDERED: NON FORMULARY MED (Telmisartan [Micardis] 80 MG) PO SCH (09:00)
[2018-04-25] MEDS ORDERED: LOSARTAN 50 MG TABLET PO SCH (09:00)
--- NOTE | 2018-04-25 15:17 | PROVIDER PROGRESS NOTE ---
Subjective - Prog Note Date Prog Note Date: 04/25/18 - Subjective Pt reports feeling: Improved Subjective: pt report she feel better, diarrhea is controlled, abdominal pain is controlled. no N/V, fever,chill, CP, SOB. she state she will call for stool transplant, her insurance already proved she to go as soon as d/c from hospital. Current Medications - Current Medications Current Medications: Active Medications Acetaminophen (Tylenol) 650 mg PO Q4HR PRN PRN Reason: Pain 1 to 4 Calcium Carbonate/Glycine (Tums) 500 mg PO BID [facility] Last Admin: 04/25/18 08:34 Dose: 500 mg Carvedilol (Coreg) 6.25 mg PO BID [facility] Last Admin: 04/25/18 08:34 Dose: 6.25 mg Hydralazine HCl (Apresoline Inj) 10 mg IVP Q6H PRN PRN Reason: Hypertensive Emergency Hydromorphone HCl (Dilaudid (Vial)) 2 mg IVP Q2H PRN PRN Reason: PAIN Sodium Chloride (Normal Saline 0.9%) 1,000 mls @ 125 mls/hr IV .Q8H [facility] Last Admin: 04/25/18 14:06 Dose: 125 mls/hr Insulin Aspart (Novolog) 1 - 9 unit SUBQ 0800,1200,1700,2100 [facility] PRN Reason: Protocol Last Admin: 04/25/18 12:19 Dose: 3 unit Losartan Potassium (Cozaar) 100 mg PO DAILY [facility] Last Admin: 04/25/18 08:34 Dose: 100 mg Metoprolol Tartrate (Lopressor Inj) 5 mg IVP Q6H PRN PRN Reason: SBP>180 or DBP>100 Last Admin: 04/25/18 06:18 Dose: 5 mg Ondansetron HCl (Zofran Inj) 4 mg IVP Q6HR PRN PRN Reason: Nausea / Vomiting Ondansetron HCl (Zofran Odt) 4 mg TL Q6HR PRN PRN Reason: Nausea / Vomiting Oxycodone HCl (Roxicodone) 5 mg PO Q6H [facility] Last Admin: 04/25/18 10:45 Dose: 5 mg Pantoprazole Sodium (Protonix) 40 mg IVP QDAC [facility] Last Admin: 04/25/18 06:04 Dose: 40 mg Polyethylene Glycol (Miralax) 17 gm PO DAILY [facility] Last Admin: 04/25/18 08:35 Dose: Not Given Sodium Chloride (Normal Saline Flush 0.9%) 10 ml IVP PRN PRN PRN Reason: NEEDED PER PROVIDER ORDERS Last Admin: 04/25/18 06:18 Dose: 10 ml Sodium Chloride (Normal Saline Flush 0.9%) 10 ml IVP 0100,0900,1700 [facility] Last Admin: 04/25/18 08:35 Dose: Not Given Vancomycin HCl (Vancocin) 125 mg PO QID [facility] Last Admin: 04/25/18 12:19 Dose: 125 mg Simvastatin 40 mg PO QPM 11/25/15 Carvedilol [Coreg] 6.25 mg PO BID 12/04/16 Polyethylene Glycol 3350 [Miralax] 17 gm PO DAILY PRN 11/01/17 Albuterol Sulfate [Proair Hfa Inhaler] 2 puffs INH Q4H PRN 01/12/18 Ondansetron [Ondansetron Odt] 8 mg PO Q8H PRN 01/12/18 fentaNYL [Fentanyl 12mcg patch] 24 mcg TOP Q72H 01/12/18 glipiZIDE [Glipizide] 5 mg PO 0730 01/12/18 oxyCODONE [Roxicodone] 5 mg PO Q6H 02/28/18 Telmisartan 40 mg PO DAILY 04/25/18 Objective - Vital Signs/Intake & Output Reviewed Vital Signs: Yes Intake & Output: Intake & Output 04/22/18 04/23/18 04/24/18 04/25/18 23:59 23:59 23:59 23:59 Intake Total 1120 Output Total 500 Balance 620 - Objective General Appearance: positive: No acute distress, Alert. negative: Lethargic Eyes Bilateral: positive: Normal inspection, PERRL, No lid inflammation, Conjunctivae nml ENT: positive: ENT inspection nml, Pharynx nml, No signs of dehydration. negative: Purulent nasal drainage, Pharyngeal erythema, Oral lesions Neck: positive: Nml inspection, Thyroid nml, No JVD. negative: Trachea midline , Thyromegaly, Lymphadenopathy (R), Lymphadenopathy (L), Stiff neck, Carotid bruit, Swelling/bruising, Tracheal deviation Respiratory: positive: Chest non-tender, No respiratory distress, Breath sounds nml. negative: Wheezes, Rales, Rhonchi Cardiovascular: positive: Regular rate & rhythm, No murmur, No gallop. negative : Irregularly irregular, Extrasystoles, Tachycardia, Bradycardia, JVD present, Systolic murmur, Diastolic murmur Peripheral Pulses: 2+ Radial (R), 2+ Radial (L), 2+ Dorsalis pedis (R), 2+ Dorsalis pedis (L) Abdomen: positive: Non-tender, No organomegaly, Nml bowel sounds, No distention. negative: Tenderness, Guarding, Rebound Back: positive: Nml inspection. negative: CVA tenderness (R), CVA tenderness (L ) Skin: positive: Color nml, No rash, Warm, Dry. negative: Cyanosis, Diaphoresis , Pallor Extremities: positive: Non-tender, Full ROM, Nml appearance. negative: Calf tenderness, Joint swelling, Jessica's sign/cords Neurologic/Psychiatric: positive: Oriented x3, Motor nml, Sensation nml, Mood/ affect nml. negative: Weakness, Sensory loss, Facial droop, Slurred/abnml speech, Depressed mood/affect - Lab Results Fish Bones: 04/25/18 05:41 04/25/18 05:41 ABX Reporting Has patient been on IV antibiotics over the past 48 hours?: Yes Assessment/Plan - Problem List (1) Intractable nausea and vomiting Impression: Conclusion/Plan: pt report she feel better, no more N/V or abdominal pain is good controlled. UDS reveals pt is still taking Marijuana. continue IVF continue PRN for antiemesis This is a chronic complaint for her, with intermittent bouts of stability in between episodes of the nausea and vomiting. In the past, this was attributed to her use of cannabis. Now, most recently is at a part of her C. difficile enterocolitis. Now there is the added differential diagnosis of opioid withdrawal since she stopped her fentanyl a few days ago. 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 We will treat symptomatically with Zofran, Compazine, IV fluids for hydration, and possibly Haldol as a one-time dose I have called her primary care provider, Dr. Blanc, and left a message for him to call the hospitalist tomorrow. She may need to be set up for another fecal transplant. (2) C. difficile diarrhea Conclusion/Plan: pt state she feel better, diarrhea is good controlled. she state she just call to make the appointment to do fecal transplant. continue PO vancomycin pt's WBC is going up a little from 14 to 14.5 continue lab monitor continue IVF Unfortunately her nausea and vomiting are severe. She did finish her 10 day course of oral vancomycin after her last stay in February. When she is able to take p.o., resume oral vancomycin as well as IV vancomycin. White cell count is elevated but not above 15,000. Plan: We will check KUB to see how dilated her bowel is. CT of abd pelvis cancelled in ER.. Aggressive IV fluids Oral vancomycin as well as IV vancomycin Consider fecal transplant in the outpatient setting (3) Controlled type 2 diabetes mellitus with complication, without long-term current use of insulin Conclusion/Plan: glucose is good controlled continue slide scale, ACHS A1C is 6.6 She has ketones in her urine, anion gap is elevated. Stop her oral medication. Check glucose before meals and at at bedtime Low-dose sliding scale short-acting insulin Check A1c (4) Essential hypertension Conclusion/Plan: pt's BP is controlled at [id number] continue home meds, add hydralazine PRN Currently not at goal. She is uncontrolled because she has been unable to take her medications for the last 2 days. We will resume her metoprolol because of tachycardia. She is a diabetic and I would lean toward an SANCHEZ inhibitor IV, because she is dehydrated we will hold off on that for right now. See how well she does with just the metoprolol IV. If still needs further treatment, consider clonidine patch to avoid emesis of medication (5) IRINA (acute kidney injury) Conclusion/Plan: improved, continue IVF daily lab monitor from dehydration and glucose elevation. IBF w 0.9 NS. recheck in am. Qualifiers: Vomiting type: cyclical vomiting Qualified Code(s): G43.A1 - Cyclical vomiting, intractable
[2018-04-25] MEDS ORDERED: ZOLPIDEM 5 MG TABLET PO PRN (21:26)
[2018-04-26] MEDS: SODIUM CHLORIDE FLUSH 0.9% 10 ML SYRINGE IVP PRN ×2 (00:17→00:29)
[2018-04-26] MEDS: METOPROLOL 5 MG/5 ML VIAL IVP PRN (00:17)
[2018-04-26] MEDS: SODIUM CHLORIDE FLUSH 0.9% 10 ML SYRINGE IVP SCH ×3 (01:10→17:14)
[2018-04-26] MEDS: amLODIPine 5 MG TABLET PO SCH ×2 (01:16→09:34)
[2018-04-26] MEDS: oxyCODONE 5 MG TABLET PO SCH ×4 (04:28→21:15)
[2018-04-26] MEDS: SODIUM CHLORIDE 0.9% 1,000 ML IV SCH ×3 (04:32→15:03)
[2018-04-26 05:38] LABS: BASOPHILS # (AUTO) 0.2 10^3/uL (0.0-0.1); BASOPHILS % (AUTO) 1.2 %; EOSINOPHILS % (AUTO) 0.1 %; HGB - HEMOGLOBIN 14.3 g/dL (12.0-16.0); LYMPHOCYTES # (AUTO) 2.2 10^3/uL (1.5-3.5); LYMPHOCYTES % (AUTO) 15.6 %; MEAN CORPUSCULAR HEMOGLOBIN 29.9 pg (27.0-31.0); MEAN CORPUSCULAR HGB CONC 33.8 g/dL (32.0-36.0); MEAN CORPUSCULAR VOLUME 88.5 fL (81.0-99.0); MONOCYTES # (AUTO) 0.7 10^3/uL (0.0-1.0); MONOCYTES % (AUTO) 5.3 %; NEUTROPHILS # (AUTO) 10.9 10^3/uL (1.5-6.6); NEUTROPHILS % (AUTO) 77.8 %; PLT - PLATELET COUNT 328 10^3/uL (130-450); RED CELL DISTRIBUTION WIDTH 13.5 % (12.0-15.0)
[2018-04-26 05:49] LABS: ALBUMIN 3.8 g/dL (3.2-5.5); ALBUMIN/GLOBULIN RATIO 1.1 (1.0-2.2); BILIRUBIN,TOTAL 0.8 mg/dL (0.2-1.0); CALCIUM 9.3 mg/dL (8.5-10.3); CREATININE 0.8 mg/dL (0.4-1.0); MAGNESIUM 1.6 mg/dL (1.7-2.8); TOTAL PROTEIN 7.2 g/dL (6.7-8.2)
[2018-04-26] MEDS: PANTOPRAZOLE 40 MG VIAL IVP SCH (06:02)
[2018-04-26] MEDS: INSULIN ASPART 300 UNIT/3 ML PEN SUBQ SCH ×4 (08:16→21:16)
[2018-04-26] MEDS ORDERED: POTASSIUM CHLORIDE 20 MEQ TABLET PO ONE (08:26)
[2018-04-26] MEDS ORDERED: MAGNESIUM SULFATE 1 GM in SODIUM CHLORIDE 0.9% 50 ML IV ONE (08:27)
[2018-04-26] MEDS ORDERED: POTASSIUM CHLOR 10 MEQ/100 ML 10 MEQ/100 ML BAG IV ONE (08:27)
[2018-04-26] MEDS: ONDANSETRON 4 MG/2 ML VIAL IVP PRN (08:29)
[2018-04-26] MEDS ORDERED: LOSARTAN 50 MG TABLET PO SCH (09:00)
[2018-04-26] MEDS ORDERED: TELMISARTAN 40 MG PO SCH (09:00)
[2018-04-26] MEDS: POLYETHYLENE GLYCOL 3350 17 GM PACKET PO SCH (09:12)
[2018-04-26] MEDS: LOSARTAN 50 MG TABLET PO SCH (09:34)
[2018-04-26] MEDS: CALCIUM CARBONATE CHEW 500 MG TABLET PO SCH ×2 (09:34→21:16)
[2018-04-26] MEDS: VANCOMYCIN 125 MG CAPSULE PO SCH ×4 (09:34→21:15)
[2018-04-26] MEDS: CARVEDILOL 3.125 MG TABLET PO SCH ×2 (09:35→21:16)
[2018-04-26] MEDS: glipiZIDE 5 MG TABLET PO SCH (09:35)
[2018-04-26] MEDS ORDERED: MAGNESIUM SULFATE 1 GM/2 ML VIAL ONE (09:36)
[2018-04-26] MEDS ORDERED: cloNIDine 0.1 MG TABLET PO PRN (10:14)
--- NOTE | 2018-04-26 13:41 | PROVIDER PROGRESS NOTE ---
Subjective - Prog Note Date Prog Note Date: 04/26/18 - Subjective Pt reports feeling: Improved Subjective: pt report she had a great improvement. She ate last night dinner and today breakfast. Today she did not have diarrhea, no N/V, no abdominal pain. She report she had sinus infection and cough for about two weeks, but she refused to have CXR for her, and have antibiotics for her because she worried about her C.Diff coming back. Today she refused to have CXR and any antibiotics for her except the PO vancomycin. She report she had a procedure to remove her renal mass six months ago by her urologist, and she had CT of abdomen done three days ago, which showed her renal mass is gone "somebody take care for me, I am happy for that." Current Medications - Current Medications Current Medications: Active Medications Acetaminophen (Tylenol) 650 mg PO Q4HR PRN PRN Reason: Pain 1 to 4 Amlodipine Besylate (Norvasc) 10 mg PO DAILY [facility] Calcium Carbonate/Glycine (Tums) 500 mg PO BID [facility] Last Admin: 04/26/18 09:34 Dose: 500 mg Carvedilol (Coreg) 6.25 mg PO BID [facility] Last Admin: 04/26/18 09:35 Dose: 6.25 mg Clonidine HCl (Catapres) 0.1 mg PO BID PRN PRN Reason: Hypertensive Emergency Glipizide (Glucotrol) 5 mg PO 0730 [facility] Last Admin: 04/26/18 09:35 Dose: 5 mg Hydralazine HCl (Apresoline Inj) 10 mg IVP Q6H PRN PRN Reason: Hypertensive Emergency Last Admin: 04/26/18 00:28 Dose: 10 mg Hydromorphone HCl (Dilaudid (Vial)) 2 mg IVP Q2H PRN PRN Reason: PAIN Sodium Chloride (Normal Saline 0.9%) 1,000 mls @ 85 mls/hr IV .[id number] [facility] Last Admin: 04/26/18 10:33 Dose: Not Given Insulin Aspart (Novolog) 1 - 9 unit SUBQ 0800,1200,1700,2100 [facility] PRN Reason: Protocol Last Admin: 04/26/18 12:01 Dose: 3 unit Losartan Potassium (Cozaar) 100 mg PO DAILY [facility] Last Admin: 04/26/18 09:34 Dose: 100 mg Metoprolol Tartrate (Lopressor Inj) 5 mg IVP Q6H PRN PRN Reason: SBP>180 or DBP>100 Last Admin: 04/26/18 00:17 Dose: 5 mg Ondansetron HCl (Zofran Inj) 4 mg IVP Q6HR PRN PRN Reason: Nausea / Vomiting Last Admin: 04/26/18 08:29 Dose: 4 mg Ondansetron HCl (Zofran Odt) 4 mg TL Q6HR PRN PRN Reason: Nausea / Vomiting Oxycodone HCl (Roxicodone) 5 mg PO Q6H [facility] Last Admin: 04/26/18 09:35 Dose: 5 mg Pantoprazole Sodium (Protonix) 40 mg IVP QDAC [facility] Last Admin: 04/26/18 06:02 Dose: 40 mg Polyethylene Glycol (Miralax) 17 gm PO DAILY [facility] Last Admin: 04/26/18 09:12 Dose: Not Given Sodium Chloride (Normal Saline Flush 0.9%) 10 ml IVP PRN PRN PRN Reason: NEEDED PER PROVIDER ORDERS Last Admin: 04/26/18 00:29 Dose: 10 ml Sodium Chloride (Normal Saline Flush 0.9%) 10 ml IVP 0100,0900,1700 [facility] Last Admin: 04/26/18 08:29 Dose: 10 ml Vancomycin HCl (Vancocin) 125 mg PO QID [facility] Last Admin: 04/26/18 13:42 Dose: 125 mg Zolpidem Tartrate (Ambien) 5 mg PO QPM PRN PRN Reason: Insomnia Last Admin: 04/25/18 21:36 Dose: 5 mg Simvastatin 40 mg PO QPM 11/25/15 Carvedilol [Coreg] 6.25 mg PO BID 12/04/16 Polyethylene Glycol 3350 [Miralax] 17 gm PO DAILY PRN 11/01/17 Albuterol Sulfate [Proair Hfa Inhaler] 2 puffs INH Q4H PRN 01/12/18 Ondansetron [Ondansetron Odt] 8 mg PO Q8H PRN 01/12/18 fentaNYL [Fentanyl 12mcg patch] 24 mcg TOP Q72H 01/12/18 glipiZIDE [Glipizide] 5 mg PO 0730 01/12/18 oxyCODONE [Roxicodone] 5 mg PO Q6H 02/28/18 Telmisartan 40 mg PO DAILY 04/25/18 Objective - Vital Signs/Intake & Output Reviewed Vital Signs: Yes Vital Signs: Vital Signs x48h Temp Pulse Resp BP Pulse Ox 04/26/18 09:44 173/94 H 04/26/18 08:00 36.8 C 98 18 146/92 H 97 Intake & Output: Intake & Output 04/23/18 04/24/18 04/25/18 04/26/18 23:59 23:59 23:59 23:59 Intake Total 2126.25 2512.000 Output Total 1200 2600 Balance 926.25 -88.000 - Objective General Appearance: positive: No acute distress, Alert. negative: Lethargic Eyes Bilateral: positive: Normal inspection, PERRL, No lid inflammation, Conjunctivae nml ENT: positive: ENT inspection nml, Pharynx nml, No signs of dehydration. negative: Purulent nasal drainage, Pharyngeal erythema, Oral lesions Neck: positive: Nml inspection, Thyroid nml, No JVD, Trachea midline. negative : Thyromegaly, Lymphadenopathy (R), Lymphadenopathy (L), Stiff neck, Swelling/ bruising, Tracheal deviation Respiratory: positive: Chest non-tender, No respiratory distress, Breath sounds nml. negative: Wheezes, Rales, Rhonchi Cardiovascular: positive: Regular rate & rhythm, No murmur, No gallop. negative : Irregularly irregular, Extrasystoles, Tachycardia, Bradycardia, JVD present, Systolic murmur, Diastolic murmur Peripheral Pulses: 2+ Radial (R), 2+ Radial (L), 2+ Dorsalis pedis (R), 2+ Dorsalis pedis (L) Abdomen: positive: Non-tender, No organomegaly, Nml bowel sounds, No distention. negative: Tenderness, Guarding, Rebound Back: positive: Nml inspection. negative: CVA tenderness (R), CVA tenderness (L ) Skin: positive: Color nml, No rash, Warm, Dry. negative: Cyanosis, Diaphoresis , Pallor Extremities: positive: Non-tender, Full ROM, Nml appearance. negative: Calf tenderness, Joint swelling, Jessica's sign/cords Neurologic/Psychiatric: positive: Oriented x3, Motor nml, Sensation nml, Mood/ affect nml. negative: Weakness, Sensory loss, Facial droop, Slurred/abnml speech, Depressed mood/affect - Lab Results Fish Bones: 04/26/18 05:25 04/26/18 05:25 Other Labs: Lab Results x24hrs 04/26/18 04/26/18 04/26/18 Range/Units 11:17 07:27 05:25 WBC 14.0 H (4.8-10.8) x10^3/uL RBC 4.80 (4.20-5.40) 10^6/uL Hgb 14.3 (12.0-16.0) g/dL Hct 42.5 (37.0-47.0) % MCV 88.5 (81.0-99.0) fL MCH 29.9 (27.0-31.0) pg MCHC 33.8 (32.0-36.0) g/dL RDW 13.5 (12.0-15.0) % Plt Count 328 (130-450) 10^3/uL MPV 8.0 (7.9-10.8) fL Neut # (Auto) 10.9 H (1.5-6.6) 10^3/uL Lymph # (Auto) 2.2 (1.5-3.5) 10^3/uL [place] # (Auto) 0.7 (0.0-1.0) 10^3/uL Eos # (Auto) 0.0 (0.0-0.7) 10^3/uL Baso # (Auto) 0.2 H (0.0-0.1) 10^3/uL Absolute Nucleated RBC 0.01 x10^3/uL Nucleated RBC % 0.0 /100WBC Sodium (135-145) mmol/L Potassium (3.5-5.0) mmol/L Chloride (101-111) mmol/L Carbon Dioxide (21-32) mmol/L Anion Gap (6-13) BUN (6-20) mg/dL Creatinine (0.4-1.0) mg/dL Estimated GFR (MDRD) (>89) Glucose (70-100) mg/dL POC Whole Bld Glucose 182 H 132 H (70 - 100) mg/dL Calcium (8.5-10.3) mg/dL Magnesium (1.7-2.8) mg/dL Total Bilirubin (0.2-1.0) mg/dL AST (10-42) IU/L ALT (10-60) IU/L Alkaline Phosphatase (42-121) IU/L Total Protein (6.7-8.2) g/dL Albumin (3.2-5.5) g/dL Globulin (2.1-4.2) g/dL Albumin/Globulin Ratio (1.0-2.2) 04/26/18 04/25/18 04/25/18 Range/Units 05:25 21:08 16:44 WBC (4.8-10.8) x10^3/uL RBC (4.20-5.40) 10^6/uL Hgb (12.0-16.0) g/dL Hct (37.0-47.0) % MCV (81.0-99.0) fL MCH (27.0-31.0) pg MCHC (32.0-36.0) g/dL RDW (12.0-15.0) % Plt Count (130-450) 10^3/uL MPV (7.9-10.8) fL Neut # (Auto) (1.5-6.6) 10^3/uL Lymph # (Auto) (1.5-3.5) 10^3/uL [place] # (Auto) (0.0-1.0) 10^3/uL Eos # (Auto) (0.0-0.7) 10^3/uL Baso # (Auto) (0.0-0.1) 10^3/uL Absolute Nucleated RBC x10^3/uL Nucleated RBC % /100WBC Sodium 133 L (135-145) mmol/L Potassium 3.1 L (3.5-5.0) mmol/L Chloride 100 L (101-111) mmol/L Carbon Dioxide 22 (21-32) mmol/L Anion Gap 11.0 (6-13) BUN 14 (6-20) mg/dL Creatinine 0.8 (0.4-1.0) mg/dL Estimated GFR (MDRD) 72 L (>89) Glucose 145 H (70-100) mg/dL POC Whole Bld Glucose 147 H 141 H (70 - 100) mg/dL Calcium 9.3 (8.5-10.3) mg/dL Magnesium 1.6 L (1.7-2.8) mg/dL Total Bilirubin 0.8 (0.2-1.0) mg/dL AST 14 (10-42) IU/L ALT 13 (10-60) IU/L Alkaline Phosphatase 68 (42-121) IU/L Total Protein 7.2 (6.7-8.2) g/dL Albumin 3.8 (3.2-5.5) g/dL Globulin 3.4 (2.1-4.2) g/dL Albumin/Globulin Ratio 1.1 (1.0-2.2) ABX Reporting Has patient been on IV antibiotics over the past 48 hours?: Yes Assessment/Plan - Problem List (1) Intractable nausea and vomiting Impression: Conclusion/Plan: 04/26 pt report she did not have N/V/D, resolved IVF reduced to 85cc/h pt report she feel better, no more N/V or abdominal pain is good controlled. UDS reveals pt is still taking Marijuana. continue IVF continue PRN for antiemesis This is a chronic complaint for her, with intermittent bouts of stability in between episodes of the nausea and vomiting. In the past, this was attributed to her use of cannabis. Now, most recently is at a part of her C. difficile enterocolitis. Now there is the added differential diagnosis of opioid withdrawal since she stopped her fentanyl a few days ago. 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 We will treat symptomatically with Zofran, Compazine, IV fluids for hydration, and possibly Haldol as a one-time dose I have called her primary care provider, Dr. Blanc, and left a message for him to call the hospitalist tomorrow. She may need to be set up for another fecal transplant. (2) C. difficile diarrhea Conclusion/Plan: 04/26 diarrhea is resolved, pt had dinner and breakfast, no abdominal pain continue PO vancomycin pt state she feel better, diarrhea is good controlled. she state she just call to make the appointment to do fecal transplant. continue PO vancomycin pt's WBC is going up a little from 14 to 14.5 continue lab monitor continue IVF Unfortunately her nausea and vomiting are severe. She did finish her 10 day course of oral vancomycin after her last stay in February. When she is able to take p.o., resume oral vancomycin as well as IV vancomycin. White cell count is elevated but not above 15,000. Plan: We will check KUB to see how dilated her bowel is. CT of abd pelvis cancelled in ER.. Aggressive IV fluids Oral vancomycin as well as IV vancomycin Consider fecal transplant in the outpatient setting (3) Controlled type 2 diabetes mellitus with complication, without long-term current use of insulin Conclusion/Plan: glucose is good controlled continue slide scale, ACHS A1C is 6.6 She has ketones in her urine, anion gap is elevated. Stop her oral medication. Check glucose before meals and at at bedtime Low-dose sliding scale short-acting insulin Check A1c (4) Essential hypertension Conclusion/Plan: 04/26 pt's BP is poor controlled. increase Norvasc to 10 mg daily, Losartan to 100mg daily add Clonidine PRN continue vital monitor pt's BP is controlled at [id number] continue home meds, add hydralazine PRN Currently not at goal. She is uncontrolled because she has been unable to take her medications for the last 2 days. We will resume her metoprolol because of tachycardia. She is a diabetic and I would lean toward an SANCHEZ inhibitor IV, because she is dehydrated we will hold off on that for right now. See how well she does with just the metoprolol IV. If still needs further treatment, consider clonidine patch to avoid emesis of medication (5) IRINA (acute kidney injury) Conclusion/Plan: 04/26 renal function as pt's baseline, resolved improved, continue IVF daily lab monitor from dehydration and glucose elevation. IBF w 0.9 NS. recheck in am. (6) lymphocytosis 04/26 today WBC is 14, basically no change from admission. pt report she had sinus infection and cough for two weeks before, but pt refused to have CXR and any antibiotics for her because she is fear for her C.Dff return. continue lab monitor and vital monitor, and support. Qualifiers: Vomiting type: cyclical vomiting Qualified Code(s): G43.A1 - Cyclical vomiting, intractable
[2018-04-27] MEDS: SODIUM CHLORIDE FLUSH 0.9% 10 ML SYRINGE IVP SCH ×3 (00:47→07:00)
[2018-04-27] MEDS: SODIUM CHLORIDE 0.9% 1,000 ML IV SCH (02:31)
[2018-04-27] MEDS: oxyCODONE 5 MG TABLET PO SCH ×4 (04:01→22:32)
[2018-04-27 05:28] LABS: BASOPHILS # (AUTO) 0.1 10^3/uL (0.0-0.1); BASOPHILS % (AUTO) 0.7 %; EOSINOPHILS # (AUTO) 0.1 10^3/uL (0.0-0.7); EOSINOPHILS % (AUTO) 0.9 %; HGB - HEMOGLOBIN 13.8 g/dL (12.0-16.0); LYMPHOCYTES # (AUTO) 2.4 10^3/uL (1.5-3.5); LYMPHOCYTES % (AUTO) 21.9 %; MEAN CORPUSCULAR HEMOGLOBIN 29.4 pg (27.0-31.0); MEAN CORPUSCULAR HGB CONC 32.8 g/dL (32.0-36.0); MEAN CORPUSCULAR VOLUME 89.6 fL (81.0-99.0); MONOCYTES # (AUTO) 0.8 10^3/uL (0.0-1.0); MONOCYTES % (AUTO) 7.1 %; NEUTROPHILS # (AUTO) 7.7 10^3/uL (1.5-6.6); NEUTROPHILS % (AUTO) 69.4 %; PLT - PLATELET COUNT 316 10^3/uL (130-450); RED BLOOD COUNT 4.69 10^6/uL (4.20-5.40); RED CELL DISTRIBUTION WIDTH 13.1 % (12.0-15.0); WHITE BLOOD COUNT 11.1 x10^3/uL (4.8-10.8)
[2018-04-27 05:32] LABS: ALBUMIN 3.7 g/dL (3.2-5.5); ALBUMIN/GLOBULIN RATIO 1.2 (1.0-2.2); BILIRUBIN,TOTAL 0.8 mg/dL (0.2-1.0); CALCIUM 8.9 mg/dL (8.5-10.3); CREATININE 0.9 mg/dL (0.4-1.0); TOTAL PROTEIN 6.7 g/dL (6.7-8.2)
[2018-04-27] MEDS: PANTOPRAZOLE 40 MG VIAL IVP SCH (06:54)
[2018-04-27] MEDS: SODIUM CHLORIDE FLUSH 0.9% 10 ML SYRINGE IVP PRN ×3 (07:00→16:20)
[2018-04-27] MEDS: INSULIN ASPART 300 UNIT/3 ML PEN SUBQ SCH ×4 (08:10→20:41)
[2018-04-27] MEDS: amLODIPine 5 MG TABLET PO SCH (08:10)
[2018-04-27] MEDS: VANCOMYCIN 125 MG CAPSULE PO SCH ×4 (08:10→21:35)
[2018-04-27] MEDS: glipiZIDE 5 MG TABLET PO SCH (08:10)
[2018-04-27] MEDS: CALCIUM CARBONATE CHEW 500 MG TABLET PO SCH ×2 (08:10→21:36)
[2018-04-27] MEDS: CARVEDILOL 3.125 MG TABLET PO SCH ×2 (08:10→21:35)
[2018-04-27] MEDS: LOSARTAN 50 MG TABLET PO SCH (08:10)
[2018-04-27] MEDS: POLYETHYLENE GLYCOL 3350 17 GM PACKET PO SCH (08:11)
[2018-04-27] MEDS: ONDANSETRON 4 MG/2 ML VIAL IVP PRN ×3 (10:24→22:32)
[2018-04-27] MEDS: POTASSIUM CHLORIDE 20 MEQ TABLET PO ONE ×2 (10:24→21:37)
--- NOTE | 2018-04-27 12:12 | XRAY Report ---
Procedure Date: 04/27/2018 Accession Number: [id number] / [id number] Procedure: XR - Chest 1 View X-Ray CPT Code: 02380 FULL RESULT: EXAM: Chest 1 View X-Ray DATE: 04/27/2018 9:13 AM CLINICAL HISTORY: cough, and SOB COMPARISON: 12/05/2017 TECHNIQUE: Single view of the chest. FINDINGS: Lungs/Pleura: No focal opacities evident. No pneumothorax or pleural effusion. Mediastinum: Within exam limitations, cardiomediastinal contour is normal. Other: None. IMPRESSION: Normal single view chest. RADIA
[2018-04-27] MEDS ORDERED: ALBUTEROL NEB 2.5 MG/3 ML INH PRN (16:07)
--- NOTE | 2018-04-27 16:18 | PROVIDER PROGRESS NOTE ---
Subjective - Prog Note Date Prog Note Date: 04/27/18 - Subjective Pt reports feeling: Worse Subjective: pt today has once N/V at morning. pt has cough and elevated WBC yesterday, but pt refused to have CXR, but today she requests CXR. pt report she did not have diarrhea today. she report she had a bad sweating today, but this sweating issue has been on her for years. She denies abdominal pain, chest pain, fever, chill. Current Medications - Current Medications Current Medications: Active Medications Acetaminophen (Tylenol) 650 mg PO Q4HR PRN PRN Reason: Pain 1 to 4 Amlodipine Besylate (Norvasc) 10 mg PO DAILY [facility] Last Admin: 04/27/18 08:10 Dose: 10 mg Calcium Carbonate/Glycine (Tums) 500 mg PO BID [facility] Last Admin: 04/27/18 08:10 Dose: 500 mg Carvedilol (Coreg) 6.25 mg PO BID [facility] Last Admin: 04/27/18 08:10 Dose: 6.25 mg Clonidine HCl (Catapres) 0.1 mg PO BID PRN PRN Reason: Hypertensive Emergency Glipizide (Glucotrol) 5 mg PO 0730 [facility] Last Admin: 04/27/18 08:10 Dose: 5 mg Hydralazine HCl (Apresoline Inj) 10 mg IVP Q6H PRN PRN Reason: Hypertensive Emergency Last Admin: 04/26/18 00:28 Dose: 10 mg Hydromorphone HCl (Dilaudid (Vial)) 2 mg IVP Q2H PRN PRN Reason: PAIN Sodium Chloride (Normal Saline 0.9%) 1,000 mls @ 100 mls/hr IV .Q10H [facility] Insulin Aspart (Novolog) 1 - 9 unit SUBQ 0800,1200,1700,2100 [facility] PRN Reason: Protocol Last Admin: 04/27/18 14:00 Dose: Not Given Losartan Potassium (Cozaar) 100 mg PO DAILY [facility] Last Admin: 04/27/18 08:10 Dose: 100 mg Metoprolol Tartrate (Lopressor Inj) 5 mg IVP Q6H PRN PRN Reason: SBP>180 or DBP>100 Last Admin: 04/26/18 00:17 Dose: 5 mg Ondansetron HCl (Zofran Inj) 4 mg IVP Q6HR PRN PRN Reason: Nausea / Vomiting Last Admin: 04/27/18 10:24 Dose: 4 mg Ondansetron HCl (Zofran Odt) 4 mg TL Q6HR PRN PRN Reason: Nausea / Vomiting Oxycodone HCl (Roxicodone) 5 mg PO Q6H [facility] Last Admin: 04/27/18 10:24 Dose: 5 mg Pantoprazole Sodium (Protonix) 40 mg IVP QDAC [facility] Last Admin: 04/27/18 06:54 Dose: 40 mg Polyethylene Glycol (Miralax) 17 gm PO DAILY [facility] Last Admin: 04/27/18 08:11 Dose: Not Given Sodium Chloride (Normal Saline Flush 0.9%) 10 ml IVP PRN PRN PRN Reason: NEEDED PER PROVIDER ORDERS Last Admin: 04/27/18 10:24 Dose: 10 ml Sodium Chloride (Normal Saline Flush 0.9%) 10 ml IVP 0100,0900,1700 [facility] Last Admin: 04/27/18 07:00 Dose: 10 ml Vancomycin HCl (Vancocin) 125 mg PO QID [facility] Last Admin: 04/27/18 14:00 Dose: 125 mg Zolpidem Tartrate (Ambien) 5 mg PO QPM PRN PRN Reason: Insomnia Last Admin: 04/25/18 21:36 Dose: 5 mg Simvastatin 40 mg PO QPM 11/25/15 Carvedilol [Coreg] 6.25 mg PO BID 12/04/16 Polyethylene Glycol 3350 [Miralax] 17 gm PO DAILY PRN 11/01/17 Albuterol Sulfate [Proair Hfa Inhaler] 2 puffs INH Q4H PRN 01/12/18 Ondansetron [Ondansetron Odt] 8 mg PO Q8H PRN 01/12/18 fentaNYL [Fentanyl 12mcg patch] 24 mcg TOP Q72H 01/12/18 glipiZIDE [Glipizide] [place] [address]/12/18 oxyCODONE [Roxicodone] 5 mg PO Q6H 02/28/18 Telmisartan 40 mg PO DAILY 04/25/18 Objective - Vital Signs/Intake & Output Reviewed Vital Signs: Yes Intake & Output: Intake & Output 04/24/18 04/25/18 04/26/18 04/27/18 23:59 23:59 23:59 23:59 Intake Total 2126.25 3059.917 4690.747 Output Total 1200 3000 1850 Balance 926.25 59.917 2840.747 - Objective General Appearance: positive: No acute distress, Alert. negative: Lethargic Eyes Bilateral: positive: Normal inspection, PERRL, No lid inflammation, Conjunctivae nml ENT: positive: ENT inspection nml, Pharynx nml, No signs of dehydration. negative: Purulent nasal drainage, Pharyngeal erythema, Oral lesions Neck: positive: Nml inspection, Thyroid nml, No JVD, Trachea midline. negative : Thyromegaly, Lymphadenopathy (R), Lymphadenopathy (L), Stiff neck, Carotid bruit, Swelling/bruising, Tracheal deviation Respiratory: positive: Chest non-tender, No respiratory distress, Breath sounds nml. negative: Wheezes, Rales, Rhonchi Cardiovascular: positive: Regular rate & rhythm, No murmur, No gallop. negative : Irregularly irregular, Extrasystoles, Tachycardia, Bradycardia, JVD present, Systolic murmur, Diastolic murmur Peripheral Pulses: 2+ Radial (R), 2+ Radial (L), 2+ Dorsalis pedis (R), 2+ Dorsalis pedis (L) Abdomen: positive: Non-tender, No organomegaly, Nml bowel sounds, No distention. negative: Tenderness, Guarding, Rebound Back: positive: Nml inspection. negative: CVA tenderness (R), CVA tenderness (L ) Skin: positive: Color nml, No rash, Warm, Dry. negative: Cyanosis, Diaphoresis , Pallor Extremities: positive: Non-tender, Full ROM, Nml appearance. negative: Pedal edema, Calf tenderness, Joint swelling, Jessica's sign/cords Neurologic/Psychiatric: positive: Oriented x3, Motor nml, Sensation nml, Mood/ affect nml. negative: Weakness, Sensory loss, Facial droop, Slurred/abnml speech, Depressed mood/affect - Lab Results Fish Bones: 04/27/18 05:05 04/27/18 05:05 Other Labs: Lab Results x24hrs 04/27/18 04/27/18 04/27/18 Range/Units 11:09 07:38 05:05 WBC (4.8-10.8) x10^3/uL RBC (4.20-5.40) 10^6/uL Hgb (12.0-16.0) g/dL Hct (37.0-47.0) % MCV (81.0-99.0) fL MCH (27.0-31.0) pg MCHC (32.0-36.0) g/dL RDW (12.0-15.0) % Plt Count (130-450) 10^3/uL MPV (7.9-10.8) fL Neut # (Auto) (1.5-6.6) 10^3/uL Lymph # (Auto) (1.5-3.5) 10^3/uL [place] # (Auto) (0.0-1.0) 10^3/uL Eos # (Auto) (0.0-0.7) 10^3/uL Baso # (Auto) (0.0-0.1) 10^3/uL Absolute Nucleated RBC x10^3/uL Nucleated RBC % /100WBC Sodium 133 L (135-145) mmol/L Potassium 3.3 L (3.5-5.0) mmol/L Chloride 104 (101-111) mmol/L Carbon Dioxide 24 (21-32) mmol/L Anion Gap 5.0 L (6-13) BUN 18 (6-20) mg/dL Creatinine 0.9 (0.4-1.0) mg/dL Estimated GFR (MDRD) 63 L (>89) Glucose 136 H (70-100) mg/dL POC Whole Bld Glucose 180 H 132 H (70 - 100) mg/dL Calcium 8.9 (8.5-10.3) mg/dL Total Bilirubin 0.8 (0.2-1.0) mg/dL AST 12 (10-42) IU/L ALT 11 (10-60) IU/L Alkaline Phosphatase 59 (42-121) IU/L Total Protein 6.7 (6.7-8.2) g/dL Albumin 3.7 (3.2-5.5) g/dL Globulin 3.0 (2.1-4.2) g/dL Albumin/Globulin Ratio 1.2 (1.0-2.2) 04/27/18 04/26/18 04/26/18 Range/Units 05:05 20:52 16:45 WBC 11.1 H (4.8-10.8) x10^3/uL RBC 4.69 (4.20-5.40) 10^6/uL Hgb 13.8 (12.0-16.0) g/dL Hct 42.0 (37.0-47.0) % MCV 89.6 (81.0-99.0) fL MCH 29.4 (27.0-31.0) pg MCHC 32.8 (32.0-36.0) g/dL RDW 13.1 (12.0-15.0) % Plt Count 316 (130-450) 10^3/uL MPV 8.0 (7.9-10.8) fL Neut # (Auto) 7.7 H (1.5-6.6) 10^3/uL Lymph # (Auto) 2.4 (1.5-3.5) 10^3/uL [place] # (Auto) 0.8 (0.0-1.0) 10^3/uL Eos # (Auto) 0.1 (0.0-0.7) 10^3/uL Baso # (Auto) 0.1 (0.0-0.1) 10^3/uL Absolute Nucleated RBC 0.00 x10^3/uL Nucleated RBC % 0.0 /100WBC Sodium (135-145) mmol/L Potassium (3.5-5.0) mmol/L Chloride (101-111) mmol/L Carbon Dioxide (21-32) mmol/L Anion Gap (6-13) BUN (6-20) mg/dL Creatinine (0.4-1.0) mg/dL Estimated GFR (MDRD) (>89) Glucose (70-100) mg/dL POC Whole Bld Glucose 121 H 124 H (70 - 100) mg/dL Calcium (8.5-10.3) mg/dL Total Bilirubin (0.2-1.0) mg/dL AST (10-42) IU/L ALT (10-60) IU/L Alkaline Phosphatase (42-121) IU/L Total Protein (6.7-8.2) g/dL Albumin (3.2-5.5) g/dL Globulin (2.1-4.2) g/dL Albumin/Globulin Ratio (1.0-2.2) Assessment/Plan - Problem List (1) Intractable nausea and vomiting Impression: Conclusion/Plan: 04/27 pt had once N/V today, unknown etiology. IVF antiemesis PRN 04/26 pt report she did not have N/V/D, resolved IVF reduced to 85cc/h pt report she feel better, no more N/V or abdominal pain is good controlled. UDS reveals pt is still taking Marijuana. continue IVF continue PRN for antiemesis This is a chronic complaint for her, with intermittent bouts of stability in between episodes of the nausea and vomiting. In the past, this was attributed to her use of cannabis. Now, most recently is at a part of her C. difficile enterocolitis. Now there is the added differential diagnosis of opioid withdrawal since she stopped her fentanyl a few days ago. 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 We will treat symptomatically with Zofran, Compazine, IV fluids for hydration, and possibly Haldol as a one-time dose I have called her primary care provider, Dr. Blanc, and left a message for him to call the hospitalist tomorrow. She may need to be set up for another fecal transplant. (2) C. difficile diarrhea Conclusion/Plan: 04/27 no diarrhea today, continue PO vancomycin, plan d/c tomorrow 04/26 diarrhea is resolved, pt had dinner and breakfast, no abdominal pain continue PO vancomycin pt state she feel better, diarrhea is good controlled. she state she just call to make the appointment to do fecal transplant. continue PO vancomycin pt's WBC is going up a little from 14 to 14.5 continue lab monitor continue IVF Unfortunately her nausea and vomiting are severe. She did finish her 10 day course of oral vancomycin after her last stay in February. When she is able to take p.o., resume oral vancomycin as well as IV vancomycin. White cell count is elevated but not above 15,000. Plan: We will check KUB to see how dilated her bowel is. CT of abd pelvis cancelled in ER.. Aggressive IV fluids Oral vancomycin as well as IV vancomycin Consider fecal transplant in the outpatient setting (3) Controlled type 2 diabetes mellitus with complication, without long-term current use of insulin Conclusion/Plan: glucose is good controlled continue slide scale, ACHS A1C is 6.6 She has ketones in her urine, anion gap is elevated. Stop her oral medication. Check glucose before meals and at at bedtime Low-dose sliding scale short-acting insulin Check A1c (4) Essential hypertension Conclusion/Plan: 04/27, BP is controlled, continue regime 04/26 pt's BP is poor controlled. increase Norvasc to 10 mg daily, Losartan to 100mg daily add Clonidine PRN continue vital monitor pt's BP is controlled at [id number] continue home meds, add hydralazine PRN Currently not at goal. She is uncontrolled because she has been unable to take her medications for the last 2 days. We will resume her metoprolol because of tachycardia. She is a diabetic and I would lean toward an SANCHEZ inhibitor IV, because she is dehydrated we will hold off on that for right now. See how well she does with just the metoprolol IV. If still needs further treatment, consider clonidine patch to avoid emesis of medication (5) IRINA (acute kidney injury) Conclusion/Plan: 04/26 renal function as pt's baseline, resolved improved, continue IVF daily lab monitor from dehydration and glucose elevation. IBF w 0.9 NS. recheck in am. (6) lymphocytosis 04/27, WBC is reduced to 11. CXR is without acute findings. pt's cough is reduced significantly. 04/26 today WBC is 14, basically no change from admission. pt report she had sinus infection and cough for two weeks before, but pt refused to have CXR and any antibiotics for her because she is fear for her C.Dff return. continue lab monitor and vital monitor, and support. Qualifiers: Vomiting type: cyclical vomiting Qualified Code(s): G43.A1 - Cyclical vomiting, intractable
[2018-04-27] MEDS ORDERED: SODIUM CHLORIDE 0.9% 1,000 ML IV SCH (17:00)
[2018-04-27] MEDS ORDERED: CALCIUM CARBONATE CHEW 500 MG TABLET PO SCH (17:00)
[2018-04-27] MEDS ORDERED: METOCLOPRAMIDE 10 MG/2 ML VIAL IVP PRN (17:35)
[2018-04-27] MEDS ORDERED: NS W/40 MEQ KCL 1,000 ML IV SCH (22:00)
[2018-04-28] MEDS: SODIUM CHLORIDE FLUSH 0.9% 10 ML SYRINGE IVP SCH ×2 (00:48→07:18)
[2018-04-28] MEDS: oxyCODONE 5 MG TABLET PO SCH ×2 (04:22→09:12)
[2018-04-28] MEDS: SODIUM CHLORIDE FLUSH 0.9% 10 ML SYRINGE IVP PRN (06:06)
[2018-04-28] MEDS: PANTOPRAZOLE 40 MG VIAL IVP SCH (06:06)
[2018-04-28 06:12] LABS: BASOPHILS # (AUTO) 0.2 10^3/uL (0.0-0.1); BASOPHILS % (AUTO) 1.5 %; EOSINOPHILS # (AUTO) 0.1 10^3/uL (0.0-0.7); EOSINOPHILS % (AUTO) 1.2 %; HGB - HEMOGLOBIN 13.7 g/dL (12.0-16.0); LYMPHOCYTES # (AUTO) 2.3 10^3/uL (1.5-3.5); LYMPHOCYTES % (AUTO) 21.6 %; MEAN CORPUSCULAR HEMOGLOBIN 29.6 pg (27.0-31.0); MEAN CORPUSCULAR HGB CONC 33.6 g/dL (32.0-36.0); MEAN PLATELET VOLUME 7.8 fL (7.9-10.8); MONOCYTES # (AUTO) 0.7 10^3/uL (0.0-1.0); MONOCYTES % (AUTO) 6.4 %; NEUTROPHILS # (AUTO) 7.5 10^3/uL (1.5-6.6); NEUTROPHILS % (AUTO) 69.3 %; PLT - PLATELET COUNT 319 10^3/uL (130-450); RED BLOOD COUNT 4.65 10^6/uL (4.20-5.40); RED CELL DISTRIBUTION WIDTH 13.1 % (12.0-15.0); WHITE BLOOD COUNT 10.8 x10^3/uL (4.8-10.8)
[2018-04-28 06:23] LABS: ALBUMIN 3.6 g/dL (3.2-5.5); ALBUMIN/GLOBULIN RATIO 1.3 (1.0-2.2); BILIRUBIN,TOTAL 0.8 mg/dL (0.2-1.0); CALCIUM 8.9 mg/dL (8.5-10.3); CREATININE 0.8 mg/dL (0.4-1.0); TOTAL PROTEIN 6.4 g/dL (6.7-8.2)
[2018-04-28] MEDS: POLYETHYLENE GLYCOL 3350 17 GM PACKET PO SCH (07:18)
[2018-04-28] MEDS ORDERED: POTASSIUM CHLORIDE 20 MEQ TABLET PO SCH (07:30)
[2018-04-28 07:47] VITALS: BP 141/96
[2018-04-28] MEDS: glipiZIDE 5 MG TABLET PO SCH (09:11)
[2018-04-28] MEDS: CARVEDILOL 3.125 MG TABLET PO SCH (09:11)
[2018-04-28] MEDS: LOSARTAN 50 MG TABLET PO SCH (09:11)
[2018-04-28] MEDS: amLODIPine 5 MG TABLET PO SCH (09:12)
[2018-04-28] MEDS: CALCIUM CARBONATE CHEW 500 MG TABLET PO SCH (09:12)
[2018-04-28] MEDS: VANCOMYCIN 125 MG CAPSULE PO SCH (09:12)
[2018-04-28] MEDS: INSULIN ASPART 300 UNIT/3 ML PEN SUBQ SCH (09:13)
--- NOTE | 2018-04-28 11:01 | Discharge Plan ---
Discharge Plan Disposition: Home, Self Care Condition: Poor Prescriptions: amLODIPine [Norvasc] 10 mg PO DAILY #10 tablet oxyCODONE [Roxicodone] 5 mg PO Q6H PRN #15 tablet PRN Reason: Pain Vancomycin [Vancocin] 125 mg PO QID #77 capsule Diet: Diabetic Activity Restrictions: Activity as Tolerated Shower Restrictions: No (fall precaution) Instruction Topics: Clostridium Difficile Infec, Amlodipine tablets Additional Instructions or Follow Up instructions: You may follow up your PCP in 3-4 days, have stool transplant in out-pt as your schedule. Should your symptoms return or worse, you may present ER or call 911 for help. No Smoking: If you smoke, Please STOP! Call for help. Follow-up with: Luis Blanc MD [Primary Care Provider] -
--- NOTE | 2018-04-28 11:24 | DISCHARGE SUMMARY ---
Discharge Summary Discharge Date: 04/28/18 Discharging Provider: GRIGGS Primary Care Provider: Dr. Blanc Condition at Discharge: Poor Discharge Disposition: 01 Home, Self Care Discharge Facility Name: home - DIAGNOSES Admission Diagnoses: (1) Intractable nausea and vomiting (2) C. difficile diarrhea (3) Controlled type 2 diabetes mellitus with complication, without long-term current use of insulin (4) Essential hypertension (5) IRINA (acute kidney injury) Discharge Diagnoses with Status of Each Condition: (1) Intractable nausea and vomiting resolved. advise pt reduce and cut down Marijuana. (2) C. difficile diarrhea no more diarrhea. d/c with PO vancomycin for 4 weeks per new recommendation. pt report she already made an appointment to for stool transplant, she will talk with her PCP and get insurance allowance for [facility] stool transplants. (3) Controlled type 2 diabetes mellitus with complication, without long-term current use of insulin stable. continue PCP management (4) Essential hypertension add Amlodipine for her BP control. continue PCP management (5) IRINA (acute kidney injury) resolved - HPI History of Present Illness: refer from Dr. Hernandez's HPI for pt as the following: This is an unfortunate 63-year-old white female who has carried the diagnosis of cyclical vomiting in the past due to cannabis use, and in spite of giving up cannabis in the last year, has continued to have episodes of nausea and vomiting. A gastric emptying study was negative in April 2013. In addition to nausea and vomiting from cyclical vomiting syndrome, the patient has had nausea vomiting and generalized abdominal pain for many, many episodes of Clostridium difficile enterocolitis. She first began having enterocolitis in April 2015. She has gone on to have it at least 6 more time since then. She has been treated with oral vancomycin most recently February 2018. In the past she was also treated with Flagyl. She was asked to do a fecal transplant in February 2016. She was hospitalized at [place] to get an elective redo fusion of L2 through S1. The surgery ended up taking 9 hours, and she was in the hospital for many many days. She was in ICU. As such, she never ended up getting the fecal transplant because she had been so ill during that hospitalization. Between February 2016 and now she has not had any problems with nausea, vomiting, diarrhea, until February 2018. She was just discharged with 10 days of oral vancomycin. She had done well with regards to her GI tract until about 4 or 5 days ago. "Doing well" is a relative thing for her. She always has vague nausea, poor appetite, dyspepsia, reflux but it was no worse than usual. Chronic back pain is an issue and she takes oxycodone as needed as well as been put on a fentanyl patch. She has years of night sweats as a complaint. Thinking that the fentanyl was making the sweats worse, she stopped her fentanyl cold turkey about 4 days ago. At that point her nausea vomiting, abdominal pain, and diarrhea recurred with ferocity. The pain is generalized, an 8 out of a 10. Nonradiating. Emesis is usually bile. No hematemesis. She did have flecks of blood in the February 2018 emesis. She does have a history of peptic ulcer disease in the remote past. With this current episode there is no flecks of blood. Diarrhea is liquid, brownish liquid. No blood, no blackness. She denies fevers , chills, rigors. Again, she has ferocious night sweats and has done so since at least 2012. She will soak through everything. She was evaluated by Dr. Alonso who found her to be hypertensive, tachycardic , and a white cell count of 14,000. She has been unable to take her blood pressure medicine for the last 2 days. He also found her to have a low chloride at 99, increased anion gap is 16, and a random glucose 11/17/2008. There is a small amount of ketones in her urine. As such she is placed in observation for recurrent diarrhea, possibly C. difficile colitis. Elevated white cell count, elevated glucose, intractable nausea vomiting, and dehydration. - ALLERGIES Allergies/Adverse Reactions: Allergies Allergy/AdvReac Type Severity Reaction Status Date / Time hydromorphone HCl * Allergy Unknown UNKNOWN Verified 04/24/18 17:08 [From Dilaudid] duloxetine Allergy Anxiety Verified 04/24/18 17:08 gabapentin Allergy Hallucinati Verified 04/24/18 17:08 ons levofloxacin [From Levaquin] Allergy Hallucinati Verified 04/24/18 17:08 ons morphine AdvReac Emesis Verified 04/24/18 17:08 - MEDICATIONS Home Medications: Ambulatory Orders Medication Instructions Recorded Confirmed Simvastatin 40 mg PO QPM 11/25/15 04/25/18 Carvedilol [Coreg] 6.25 mg PO BID 12/04/16 04/25/18 Polyethylene Glycol 3350 [Miralax] 17 gm PO DAILY PRN 11/01/17 04/25/18 Albuterol Sulfate [Proair Hfa 2 puffs INH Q4H PRN 01/12/18 04/25/18 Inhaler] Ondansetron [Ondansetron Odt] 8 mg PO Q8H PRN 01/12/18 04/25/18 fentaNYL [Fentanyl 12mcg patch] 24 mcg TOP Q72H 01/12/18 04/25/18 glipiZIDE [Glipizide] 5 mg PO 0730 01/12/18 04/25/18 oxyCODONE [Roxicodone] 5 mg PO Q6H 02/28/18 04/25/18 Telmisartan 40 mg PO DAILY 04/25/18 04/25/18 Vancomycin [Vancocin] 125 mg PO QID #77 capsule 04/28/18 amLODIPine [Norvasc] 10 mg PO DAILY #10 tablet 04/28/18 oxyCODONE [Roxicodone] 5 mg PO Q6H PRN #15 tablet 04/28/18 - PHYSICAL EXAM AT DISCHARGE General Appearance: positive: No acute distress, Alert. negative: Lethargic Eyes Bilateral: positive: Normal inspection, PERRL, No lid inflammation, Conjunctivae nml ENT: positive: ENT inspection nml, Pharynx nml, No signs of dehydration. negative: Purulent nasal drainage, Pharyngeal erythema, Oral lesions Neck: positive: Nml inspection, Thyroid nml, No JVD, Trachea midline. negative : Thyromegaly, Lymphadenopathy (R), Lymphadenopathy (L), Stiff neck, Carotid bruit, Swelling/bruising, Tracheal deviation Respiratory: positive: Chest non-tender, No respiratory distress, Breath sounds nml. negative: Wheezes, Rales, Rhonchi Cardiovascular: positive: Regular rate & rhythm, No murmur, No gallop. negative : Irregularly irregular, Extrasystoles, Tachycardia, Bradycardia, JVD present, Systolic murmur, Diastolic murmur Peripheral Pulses: positive: 2+ Abdomen: positive: Non-tender, No organomegaly, Nml bowel sounds, No distention. negative: Tenderness, Guarding, Rebound Back: positive: Nml inspection. negative: CVA tenderness (R), CVA tenderness (L ) Skin: positive: Color nml, No rash, Warm, Dry. negative: Cyanosis, Diaphoresis , Pallor Extremities: positive: Non-tender, Full ROM, Nml appearance. negative: Calf tenderness, Joint swelling, Jessica's sign/cords Neurologic/Psychiatric: positive: Oriented x3, Motor nml, Sensation nml, Mood/ affect nml. negative: Weakness, Sensory loss, Facial droop, Slurred/abnml speech, Depressed mood/affect - LABS Result Diagrams: 04/28/18 06:00 04/28/18 06:00 - FOLLOW UP Follow Up: You may follow up your PCP in 3-4 days, have stool transplant in out-pt as your schedule. Should your symptoms return or worse, you may present ER or call 911 for help. - TIME SPENT Time Spent in Discharge (Minutes): 50
== END 2018-04-28 11:55 | disposition home or self-care (01) | DRG 372 ==
LOC: ED 15:51 → MS2 20:56 → OBSVTOIN 04-25 11:59
PROVIDERS: ADMIT Specialist; ATTEND Nurse Practitioner Gerontology
DX: R11.2 Nausea with vomiting, unspecified (principal); A04.71 Enterocolitis due to Clostridium difficile, recurrent; N17.9 Acute kidney failure, unspecified; F11.23 Opioid dependence with withdrawal; G43.A1 Cyclical vomiting, in migraine, intractable; E86.0 Dehydration; D72.820 Lymphocytosis (symptomatic); E11.42 Type 2 diabetes mellitus with diabetic polyneuropathy; I10 Essential (primary) hypertension; E78.00 Pure hypercholesterolemia, unspecified; G89.29 Other chronic pain; M54.9 Dorsalgia, unspecified; K21.9 Gastro-esophageal reflux disease without esophagitis; F41.9 Anxiety disorder, unspecified; G47.00 Insomnia, unspecified; M19.90 Unspecified osteoarthritis, unspecified site; M79.7 Fibromyalgia; Q81.8 Other epidermolysis bullosa; Z98.1 Arthrodesis status; Z72.89 Other problems related to lifestyle; Z79.84 Long term (current) use of oral hypoglycemic drugs; Z79.899 Other long term (current) drug therapy; Z87.891 Personal history of nicotine dependence; Z87.11 Personal history of peptic ulcer disease; Z87.448 Personal history of other diseases of urinary system
CPT/HCPCS: 36415; 71045; 74019; 80048; 80053; 80306; 81001; 81003; 83036; 83605; 83690; 83735; 85025; 87086; 87493; 96361; 96365; 96372; 96375; 96376; 99284

== ENCOUNTER 2018-06-08 07:34 | Inpatient (IN) | payer MEDICARE, OTHER ==
[2018-06-08] MEDS ORDERED: ONDANSETRON 4 MG/2 ML VIAL ONE (07:54)
[2018-06-08] MEDS ORDERED: ONDANSETRON 4 MG/2 ML VIAL IVP STA ×2 (07:58→10:37)
[2018-06-08] MEDS ORDERED: SODIUM CHLORIDE 0.9% 1,000 ML IV ONE ×2 (07:58→11:11)
[2018-06-08 08:04] LABS: BASOPHILS # (AUTO) 0.1 10^3/uL (0.0-0.1); BASOPHILS % (AUTO) 0.6 %; HGB - HEMOGLOBIN 16.5 g/dL (12.0-16.0); LYMPHOCYTES # (AUTO) 1.5 10^3/uL (1.5-3.5); LYMPHOCYTES % (AUTO) 7.6 %; MEAN CORPUSCULAR HGB CONC 33.6 g/dL (32.0-36.0); MEAN CORPUSCULAR VOLUME 89.1 fL (81.0-99.0); MEAN PLATELET VOLUME 8.9 fL (7.9-10.8); MONOCYTES # (AUTO) 1.1 10^3/uL (0.0-1.0); MONOCYTES % (AUTO) 5.3 %; NEUTROPHILS # (AUTO) 17.3 10^3/uL (1.5-6.6); NEUTROPHILS % (AUTO) 86.5 %; PLT - PLATELET COUNT 356 10^3/uL (130-450); RED CELL DISTRIBUTION WIDTH 14.9 % (12.0-15.0)
[2018-06-08 08:17] LABS: ALBUMIN 5.6 g/dL (3.2-5.5); ALBUMIN/GLOBULIN RATIO 1.5 (1.0-2.2); BILIRUBIN,TOTAL 1.2 mg/dL (0.2-1.0); CALCIUM 10.4 mg/dL (8.5-10.3); CREATININE 1.6 mg/dL (0.4-1.0); TOTAL PROTEIN 9.3 g/dL (6.7-8.2)
[2018-06-08 08:22] LABS: GLUCOSE, URINE (UA) 250 mg/dL (NEGATIVE); KETONES,URINE (UA) 15 mg/dL (NEGATIVE); LEUKOCYTE ESTERASE, URINE NEGATIVE (NEGATIVE); NITRITE,URINE NEGATIVE (NEGATIVE); OCCULT BLOOD,URINE MODERATE (NEGATIVE); PROTEIN,URINE >=300 mg/dL (NEGATIVE); UROBILINOGEN,URINE 0.2 (NORMAL) E.U./dL (NORMAL)
[2018-06-08 08:29] LABS: BILIRUBIN,URINE NEGATIVE (NEGATIVE); CLARITY,URINE HAZY (CLEAR); ICTOTEST,URINE NEGATIVE
--- NOTE | 2018-06-08 08:40 | ED Physician Documentation ---
PD HPI NVD - Stated complaint Stated Complaint: VOMITING/DIARRHEA - Chief complaint Chief Complaint: Abd Pain - History obtained from History obtained from: Patient - History of Present Illness Timing - onset: Yesterday Timing - duration: Days (1) Timing - details: Abrupt onset, Still present Associated symptoms: Abdominal pain, Dizzy, Near syncope / syncope, Loss of appetite, Other (sweats) Contributing factors: Other (hx of C. Diff and canabis hyperemesis) Improved by: Vomiting Similar symptoms before: Diagnosis (C diff and canabis hyperemesis) Recently seen: Admitted - Additonal information Additional information: Chronically ill 63-year-old female with chronic back pain on pain management has developed acute nausea vomiting diarrhea beginning yesterday morning. She states she still has her fentanyl patch on and she put a patch on today. She has been using some cannabis but states this is only a small amount. She has finished her 4 week course of vancomycin about 4 days ago. Yesterday morning she developed profuse diarrhea and nausea and vomiting. Review of Systems Constitutional: reports: Sweats. denies: Fever Eyes: denies: Decreased vision Ears: denies: Ear pain Nose: denies: Rhinorrhea / runny nose, Congestion Throat: denies: Sore throat Cardiac: denies: Chest pain / pressure, Palpitations Respiratory: denies: Dyspnea, Cough GI: reports: Abdominal Pain, Nausea, Vomiting, Diarrhea : denies: Dysuria, Frequency Skin: denies: Rash Musculoskeletal: denies: Neck pain, Back pain, Extremity pain Neurologic: denies: Generalized weakness, Focal weakness, Numbness PD PAST MEDICAL HISTORY - Past Medical History Cardiovascular: Hypertension, High cholesterol Respiratory: Asthma Neuro: None Endocrine/Autoimmune: Type 2 diabetes GI: GERD, Ulcers, Hiatal hernia, C.difficile, Diverticulitis ADMISSIONS RECRUITER: Other : Other HEENT: None Psych: Anxiety, Other Musculoskeletal: Osteoarthritis, Fibromyalgia, Chronic back pain, Other Derm: Other - Past Surgical History Past Surgical History: Yes General: Appendectomy, Bowel surgery, Colonoscopy Ortho: Carpal Tunnel surgery, Spine surgery Neuro: Radical neck - Present Medications Home Medications: Ambulatory Orders Medication Instructions Recorded Confirmed Simvastatin 40 mg PO QPM 11/25/15 04/25/18 Carvedilol [Coreg] 6.25 mg PO BID 12/04/16 04/25/18 Albuterol Sulfate [Proair Hfa 2 puffs INH Q4H PRN 01/12/18 04/25/18 Inhaler] Ondansetron [Ondansetron Odt] 8 mg PO Q8H PRN 01/12/18 04/25/18 fentaNYL [Fentanyl 12mcg patch] 24 mcg TOP Q72H 01/12/18 04/25/18 glipiZIDE [Glipizide] 5 mg PO 0730 01/12/18 04/25/18 oxyCODONE [Roxicodone] 5 mg PO Q6H 02/28/18 04/25/18 Telmisartan 40 mg PO DAILY 04/25/18 04/25/18 oxyCODONE [Roxicodone] 5 mg PO Q6H PRN #15 tablet 04/28/18 - Allergies Allergies/Adverse Reactions: Allergies Allergy/AdvReac Type Severity Reaction Status Date / Time hydromorphone HCl * Allergy Unknown UNKNOWN Verified 04/24/18 17:08 [From Dilaudid] duloxetine Allergy Anxiety Verified 04/24/18 17:08 gabapentin Allergy Hallucinati Verified 04/24/18 17:08 ons levofloxacin [From Levaquin] Allergy Hallucinati Verified 04/24/18 17:08 ons morphine AdvReac Emesis Verified 06/08/18 07:49 - Social History Does the pt smoke?: Yes Smoking Status: Current every day smoker Does the pt drink ETOH?: No Does the pt have substance abuse?: No - Immunizations Immunizations are current?: Yes - POLST Patient has POLST: No POLST Status: Full Code PD ED PE NORMAL - Vitals Vital signs reviewed: Yes (hypertensive ) - General General: Well developed/nourished - HEENT HEENT: Atraumatic, PERRL, EOMI - Neck Neck: Supple, no meningeal sign - Cardiac Cardiac: RRR, No murmur - Respiratory Respiratory: No respiratory distress, Clear bilaterally - Abdomen Abdomen: Soft, Non tender - Back Back: No CVA TTP, No spinal TTP - Derm Derm: Normal color, Warm and dry, No rash - Extremities Extremities: No deformity, No edema - Neuro Neuro: Alert and oriented X 3, etcher enameling 2-12 intact, No motor deficit, No sensory deficit, Normal speech Eye Opening: Spontaneous Motor: Obeys Commands Verbal: Oriented GCS Score: 15 - Psych Psych: Other (mood is defeated and the affect is flat) Results - Vitals Vitals: Vital Signs - 24 hr 06/08/18 06/08/18 06/08/18 07:46 08:42 10:03 Temperature 37.1 C 36.9 C Heart Rate 74 90 97 Respiratory 22 20 20 Rate Blood Pressure 187/152 H 190/108 H 146/90 H O2 Saturation 100 99 98 06/08/18 12:33 Temperature 36.9 C Heart Rate 86 Respiratory 20 Rate Blood Pressure 141/100 H O2 Saturation 100 Oxygen O2 Source Room air - Labs Labs: Laboratory Tests 06/08/18 06/08/18 06/08/18 08:00 08:00 08:00 WBC 20.0 H RBC 5.50 H Hgb 16.5 H Hct 49.0 H MCV 89.1 MCH 30.0 MCHC 33.6 RDW 14.9 Plt Count 356 MPV 8.9 Neut # (Auto) 17.3 H Lymph # (Auto) 1.5 [place] # (Auto) 1.1 H Eos # (Auto) 0.0 Baso # (Auto) 0.1 Absolute Nucleated RBC 0.02 Nucleated RBC % 0.1 Manual Slide Review Indicated WBC Morphology NORMAL APPEARANCE Platelet Estimate NORMAL (130-450,000) Platelet Morphology NORMAL APPEARANCE RBC Morph Micro Appear NORMAL APPEARANCE Sodium 137 Potassium 3.8 Chloride 96 L Carbon Dioxide 23 Anion Gap 18.0 H BUN 17 Creatinine 1.6 H Estimated GFR (MDRD) 32 L Glucose 249 H Lactic Acid Calcium 10.4 H Total Bilirubin 1.2 H AST 28 ALT 18 Alkaline Phosphatase 76 Total Protein 9.3 H Albumin 5.6 H Globulin 3.7 Albumin/Globulin Ratio 1.5 Lipase 111 H Urine Color Urine Clarity Urine pH Ur Specific [place] Urine Protein Urine Glucose (UA) Urine Ketones Urine Occult Blood Urine Nitrite Urine Bilirubin Urine Urobilinogen Ur Leukocyte Esterase Urine RBC Urine WBC Ur Squamous Epith Cells Urine Bacteria Urine Casts Ur Microscopic Review Urine Culture Comments Serum Ketones NEGATIVE 06/08/18 06/08/18 06/08/18 08:17 12:24 12:24 WBC RBC Hgb Hct MCV MCH MCHC RDW Plt Count MPV Neut # (Auto) Lymph # (Auto) [place] # (Auto) Eos # (Auto) Baso # (Auto) Absolute Nucleated RBC Nucleated RBC % Manual Slide Review WBC Morphology Platelet Estimate Platelet Morphology RBC Morph Micro Appear Sodium 136 Potassium 3.5 Chloride 98 L Carbon Dioxide 26 Anion Gap 12.0 BUN 18 Creatinine 1.2 H Estimated GFR (MDRD) 45 L Glucose 155 H Lactic Acid 1.3 Calcium 9.3 Total Bilirubin 0.7 AST 17 ALT 14 Alkaline Phosphatase 65 Total Protein 7.7 Albumin 4.7 Globulin 3.0 Albumin/Globulin Ratio 1.6 Lipase 47 Urine Color YELLOW Urine Clarity HAZY Urine pH 6.0 Ur Specific [place] >=1.030 H Urine Protein >=300 H Urine Glucose (UA) 250 H Urine Ketones 15 H Urine Occult Blood MODERATE H Urine Nitrite NEGATIVE Urine Bilirubin NEGATIVE Urine Urobilinogen 0.2 (NORMAL) Ur Leukocyte Esterase NEGATIVE Urine RBC 0-5 Urine WBC 4-5 Ur Squamous Epith Cells RARE Squamous Urine Bacteria Few Urine Casts 11-25 Hyaline Casts Ur Microscopic Review INDICATED Urine Culture Comments NOT INDICATED Serum Ketones Procedures - IVC sono (time) 0830 Bedside IVC sono: IVC measures (cm) (1.08), IVC collapsed c insp (cm) (complete) , Dehydration (est 1.5 liter deficit after 0.5 liters in.) PD MEDICAL DECISION MAKING - ED course Complexity details: reviewed old records, reviewed results, re-evaluated patient , considered differential, d/w patient ED course: Chronically ill 63-year-old female with a prior history of C. difficile colitis , cannabis hyperemesis and narcotic withdrawal appears to have acute nausea vomiting and diarrhea with markedly elevated white blood cell count and electrolyte abnormalities. She is found to be dehydrated and IV saline is begun she has some relief with the use of Zofran. She improves with treatment but continues to have nausea and feel ill. WBC is elevated as is lipase. She will need further inpatient treatment by history. - Sepsis Event Vital Signs: Vital Signs - 24 hr 06/08/18 06/08/18 06/08/18 07:46 08:42 10:03 Temperature 37.1 C 36.9 C Heart Rate 74 90 97 Respiratory 22 20 20 Rate Blood Pressure 187/152 H 190/108 H 146/90 H O2 Saturation 100 99 98 06/08/18 12:33 Temperature 36.9 C Heart Rate 86 Respiratory 20 Rate Blood Pressure 141/100 H O2 Saturation 100 Oxygen O2 Source Room air Departure - Departure Disposition: [facility] DC/Xfer Clinical Impression: Stress and adjustment reaction, Dehydration Intractable nausea and vomiting Qualifiers: Vomiting type: cyclical vomiting Qualified Code(s): G43.A1 - Cyclical vomiting , intractable Condition: Stable
[2018-06-08 08:42] LABS: BACTERIA,URINE Few /HPF (None Seen); RBC,URINE 0-5 /HPF (0-5); SQUAMOUS EPITHELIAL CELL,UR RARE Squamous (<= Few)
[2018-06-08 08:55] LABS: PLATELET ESTIMATE, MANUAL NORMAL (130-450,000) (NORMAL); PLATELET MORPHOLOGY NORMAL APPEARANCE (NORMAL); RBC MORPHOLOGY (MULTIPLE) NORMAL APPEARANCE (NORMAL)
[2018-06-08] MEDS ORDERED: ONDANSETRON ODT 4 MG TABLET TL STA (10:34)
[2018-06-08 12:41] LABS: ALBUMIN 4.7 g/dL (3.2-5.5); ALBUMIN/GLOBULIN RATIO 1.6 (1.0-2.2); BILIRUBIN,TOTAL 0.7 mg/dL (0.2-1.0); CALCIUM 9.3 mg/dL (8.5-10.3); CREATININE 1.2 mg/dL (0.4-1.0); TOTAL PROTEIN 7.7 g/dL (6.7-8.2)
[2018-06-08] MEDS ORDERED: SODIUM CHLORIDE FLUSH 0.9% 10 ML SYRINGE IVP PRN (12:51)
--- NOTE | 2018-06-08 13:04 | HISTORY & PHYSICAL EXAMINATION ---
Chief Complaint - Chief Complaint Chief Complaint: nausea, vomiting, diarrhea History of Present Illness - Admitted From Admitted From:: ED - History Obtained From Records Reviewed: yes History obtained from: chart review, patient Exam Limitations: none - History of Present Illness HPI Comment/Other: Nataliya Simmons is an ill appearing 64-year old female with a past medical history of hypertension, hyperlipidemia, asthma, DM type 2, GERD, gastric ulcers , hiatal hernia, recurrent c-diff, diverticulitis, anxiety disorder, osteoarthritis, fibromyalgia, chronic back pain, status post laminectomy, and status post radical neck surgery. The patient was last admitted on 04/24/18 ~7 weeks ago for the same illness. She has just finished the oral vancomycin taper at home 2 days ago. She admits to developing nausea, vomiting, and diarrhea over 24 hours ago, so her , Steve drove her to our ED. She states that she nearly received a fecal transplant, but this procedure was aborted due to hypotension. The patient's states that during her illness, she becomes very hungry, but when she no longer has an appetite, she then requires hospitalization. Upon arrival to the ED labs show a marked elevated WBC count of >20, increased creatinine at 1.6, a reduced GFR of 32, anemia with a hemoglobin of 16.5, hematocrit of 49.0, elevated neutrophil count of 17.3, elevated glucose of 249, elevated calcium of 10.4, elevated albumin of 5.6, elevated lipase of 111, a normal lactic acid at 1.3, and urine with high ketones, high glucose of 250, high protein of >300, and culture is indicated and pending. The patient was predicted to be 1.5L dry per US. She was found to have uncontrolled hypertension with an elevated blood pressure of 141/100. Upon exam, the patient's primary complaint was ongoing back pain, nausea, and anorexia. She denies new or concerning symptoms including chest pain, shortness of breath, bleeding, dizziness, or a new cough. She will be admitted to inpatient for further care using IV flagyl, high dose oral vanco, symptom management, close monitoring, and once stabilized, we will recommend prompt follow up with GI for a fecal transplant/colonoscopy. History - Past Medical History Cardiovascular: reports: Hypertension, High cholesterol Respiratory: reports: Asthma Neuro: reports: Headaches Endocrine/Autoimmune: reports: Type 2 diabetes GI: reports: GERD, Ulcers, Hiatal hernia, C.difficile, Diverticulitis OCC THER: reports: Other : reports: Frequency HEENT: reports: None Psych: reports: Anxiety Musculoskeletal: reports: Osteoarthritis, Fibromyalgia, Chronic back pain MRSA Hx?: No - Past Surgical History General: reports: Appendectomy, Bowel surgery, Colonoscopy Ortho: reports: Carpal Tunnel surgery, Spine surgery Neuro: reports: Radical neck - Family & Social History Family History: Mother: , CAD, Diabetes, Type 2, Father: , CAD, CVA/TIA Family History Comment/Other: Father of carcinoid of his appendix at age 73. He had a history of coronary artery disease and hypertension. Mom of stage IV colon cancer October 2017. One sister of multiple sclerosis at the age of 61. One sister is healthy. Her only brother just this last Monday in an ATV accident in [place]. 36-year-old daughter is healthy Living arrangement: At home Living Situation: With spouse/s.o. 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 She has been living at [place], independently, with her , Steve. Patient had one daughter at 36 years old, who now lives in [place]. Current smoker of a 1/2 pack per day for 5 years. She denies alcohol use and admits to current marijuana use. She has been disabled since 2007 because of chronic back pain. She wishes to be a FULL code. - Substance History Use: Uses substance without health or social issues: Tobacco, Cannabis Use Issues: Anxiety Disorder Abuse: Recurrent use of substance despite neg consequences: NONE Dependence: Experiences withdrawal or developed tolerances: Tobacco, Cannabis Dependence Issues: Anxiety Disorder Tobacco Details: Cigarettes (just started 5 years ago since becoming disabled, admits to marijuana use.) - POLST Patient has POLST: No POLST Status: Full Code Meds/Allgy - Home Medications Home Medications: Ambulatory Orders Medication Instructions Recorded Confirmed Simvastatin 40 mg PO QPM 11/25/15 06/08/18 Carvedilol [Coreg] 6.25 mg PO BID 12/04/16 06/08/18 Ondansetron [Ondansetron Odt] 8 mg PO Q8H PRN 01/12/18 06/08/18 fentaNYL [Fentanyl 12mcg patch] 24 mcg TOP Q72H 01/12/18 06/08/18 glipiZIDE [Glipizide] 5 mg PO 0730 01/12/18 06/08/18 Telmisartan 40 mg PO DAILY 04/25/18 06/08/18 oxyCODONE [Roxicodone] 5 mg PO Q6H PRN #15 tablet 04/28/18 06/08/18 - Allergies Allergies/Adverse Reactions: Allergies Allergy/AdvReac Type Severity Reaction Status Date / Time hydromorphone HCl * Allergy Unknown UNKNOWN Verified 04/24/18 17:08 [From Dilaudid] duloxetine Allergy Anxiety Verified 04/24/18 17:08 gabapentin Allergy Hallucinati Verified 04/24/18 17:08 ons levofloxacin [From Levaquin] Allergy Hallucinati Verified 04/24/18 17:08 ons morphine AdvReac Emesis Verified 06/08/18 07:49 Review of Systems - Constitutional Constitutional: reports: Fatigue, Weakness, Poor appetite - Eyes Eyes: reports: Corrective lenses - Ears, Nose & Throat Ears, Nose & Throat: reports: Sore throat, Hoarseness - Cardiovascular Cariovascular: reports: Decr. exercise tolerance - Respiratory Respiratory: reports: SOB with exertion - Gastrointestinal Gastrointestinal: reports: Abdominal pain, Abdominal distention, Diarrhea, Change in bowel habits, Nausea, Vomiting, Reflux/heartburn, Poor appetite - Genitourinary Genitourinary: reports: Dysuria, Frequency, Urgency - Musculoskeletal Musculoskeletal: reports: Back pain, Muscle aches - Integumentary Integumentary: reports: Lesions, Dryness, Pigment changes - Neurological Neurological: reports: General weakness, Pre-existing deficit - Psychiatric Psychiatric: reports: Anxiety - Hematologic/Lymphatic Hematologic/Lymphatic: reports: Recurrent infections - All Other Systems All Other Systems: reports: Reviewed and negative Exam - Vital Signs Reviewed Vital Signs: Yes Vital Signs: Vital Signs x48h Temp Pulse Resp BP Pulse Ox 06/08/18 12:33 36.9 C 86 20 141/100 H 100 06/08/18 10:03 36.9 C 97 20 146/90 H 98 06/08/18 08:42 90 20 190/108 H 99 06/08/18 07:46 37.1 C 74 22 187/152 H 100 - Physical Exam General Appearance: positive: Alert, Moderate distress, Anxious Eyes Bilateral: positive: Normal inspection, PERRL ENT: positive: ENT inspection nml, Pharynx nml, Pharyngeal erythema, Dry mucous membranes Neck: positive: Nml inspection, Thyroid nml, No JVD, Trachea midline Respiratory: positive: Chest non-tender, No respiratory distress Cardiovascular: positive: Regular rate & rhythm, Systolic murmur, Decreased pulse(s) Peripheral Pulses: positive: 2+ Abdomen: positive: Tenderness, Guarding, Abnml bowel sounds (hyperactive), Other (rounded, soft) Back: positive: Nml inspection Skin: positive: No rash, Warm, Dry, Skin rash (small, scattered, non-puritic facial rash.) Extremities: positive: Nml appearance, No pedal edema Neurologic/Psychiatric: positive: Oriented x3, CN's nml (2-12), Motor nml, Sensation nml, Weakness, Depressed mood/affect Reflexes: Bicep (R): 3+, Bicep (L): 3+ Conclusion/Plan - Problem List (1) Recurrent Clostridium difficile diarrhea Conclusion/Plan: The patient was last admitted on 04/24/18, for a similar episode of C-diff. She was on a prolonged taper of oral Vanco that just finished 48 hours prior to this admission. She very quickly started to have N/V/D, without blood. She has been started on IV Flagyl, high dose oral vanco at 500 mg PO QID, a probiotic, IV reglan, and TUMS as requested. She states that she had problems about 2 years ago, was free of this illness until the last admission. This is now considered to be severe CDI, so a more aggressive treatment is necessary to stabilize her, then after this treatment, [place]. She is not tolerating food, liquids, continues to have N/V and incontinent diarrhea upon exam. Plan: Contact precautions, continue treatment, and recommend prompt GI follow up after this hospital stay. (2) Nausea vomiting and diarrhea Conclusion/Plan: The patient has been having nausea, vomiting, and diarrhea and these were the primary complaints upon admission. These symptoms are likely a result of her recurrent c-diff colitis. She is on clear liquids, for comfort as she complains of having a very dry mouth. She denies skin break down surrounding her anus, although was incontinent during this exam of stool. Plan: Continue to treat with zofran, TUMS per her request, and consider benzos if no relief. (3) IRINA (acute kidney injury) Conclusion/Plan: The patient is found to have decreased kidney function with an elevated creatinine of 1.6, and a reduced GFR of 32. She has a baseline creatinine of 0.8, and a typical GFR in the 60's. Plan: Continue to monitor daily labs, and supplement with continuous IVFs. 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 She did not fracture any thing, but since that time has had at least 3 spinal surgeries. She continues to have chronic, daily , unrelenting low back pain for which she sees a pain clinic and is prescribed a duragesic fentanyl patch and ora oxycodone. These are continued while in the hospital, with tylenol if needed. Plan: Continue to monitor. Qualifiers: Back pain location: low back pain Back pain laterality: bilateral Sciatica presence: unspecified whether sciatica present Qualified Code(s): M54.5 - Low back pain; G89.29 - Other chronic pain; G89.29 - Other chronic pain (5) DM2 (diabetes mellitus, type 2) Conclusion/Plan: The patient has been controlled on oral meds at home using glipizide, which continues here. We will also do AC/HS blood glucose monitoring and a carb controlled diet once she is tolerating PO. Plan: Obtain HgA1C in the AM, and continue oral meds. (6) Hypertension Conclusion/Plan: The patient is prescribed an ARB, and coreg at home for her HTN, which continues. Her blood pressure has been elevated, and she has been prescribed IV hydralazine, and IV metoprolol as her GI absorption is reduced. An echocardiogram is pending, and was ordered for her ongoing uncontrolled HTN, and a murmur heard on exam. Plan: continue to monitor vital signs. Qualifiers: Hypertension type: essential hypertension Qualified Code(s): I10 - Essential (primary) hypertension - Lab Results Lab results reviewed: Yes Erik Bones: 06/09/18 05:25 06/09/18 05:25 - EKG Results EKG Interpreted Independently: Yes Core Measures - Anticipated LOS I expect patient to be DC'd or transferred within 96 hours.: Yes - DVT/VTE - Prophylaxis VTE/DVT Device ordered at admit?: Yes VTE/DVT Prophylaxis med ordered at admit?: Yes - Stroke - Rehab Assessment Rehab services assessment to be ordered?: No Not Ordered - Medical Reason: Contraindicated - AMI - Statin at Admit Aspirin Prescribed on Admit: No Not Ordered - Medical Reason: Contraindicated
[2018-06-08] MEDS ORDERED: VANCOMYCIN 125 MG CAPSULE PO SCH (15:00)
[2018-06-08] MEDS ORDERED: diphenhydrAMINE INJ 50 MG/ML VIAL IVP PRN (15:00)
[2018-06-08] MEDS: hydrALAZINE INJ 20 MG/ML VIAL IVP SCH ×2 (15:56→22:03)
[2018-06-08] MEDS: oxyCODONE 5 MG TABLET PO PRN ×2 (15:57→22:03)
[2018-06-08] MEDS: CALCIUM CARBONATE CHEW 500 MG TABLET PO PRN ×2 (15:57→20:03)
[2018-06-08] MEDS: METOPROLOL 5 MG/5 ML VIAL IVP SCH ×3 (15:57→22:05)
[2018-06-08] MEDS: SACCHAROMYCES BOULARDII 250 MG CAPSULE PO SCH (15:58)
[2018-06-08] MEDS: VANCOMYCIN 125 MG CAPSULE PO SCH ×2 (15:58→22:03)
[2018-06-08] MEDS: metroNIDAZOLE 500 MG/100 ML 500 MG/100 ML BAG IV SCH (15:58)
[2018-06-08] MEDS: NS W/20 MEQ KCL 1,000 ML IV SCH (15:58)
[2018-06-08] MEDS: SODIUM CHLORIDE FLUSH 0.9% 10 ML SYRINGE IVP SCH (15:59)
[2018-06-08] MEDS ORDERED: fentaNYL 12 MCG PATCH TOP SCH (16:00)
[2018-06-08] MEDS: ONDANSETRON 4 MG/2 ML VIAL IVP PRN (16:03)
[2018-06-08] MEDS: LOSARTAN 50 MG TABLET PO SCH (20:04)
[2018-06-08] MEDS: METOCLOPRAMIDE 10 MG/2 ML VIAL IVP SCH (20:04)
[2018-06-08] MEDS ORDERED: ZOLPIDEM 5 MG TABLET PO PRN (22:36)
[2018-06-08] MEDS: ACETAMINOPHEN 1,000 MG/100 ML 100 ML IV SCH (23:59)
[2018-06-09] MEDS: METOCLOPRAMIDE 10 MG/2 ML VIAL IVP SCH ×4 (00:08→17:44)
[2018-06-09] MEDS: METOPROLOL 5 MG/5 ML VIAL IVP SCH ×5 (00:15→21:15)
[2018-06-09] MEDS: metroNIDAZOLE 500 MG/100 ML 500 MG/100 ML BAG IV SCH ×2 (00:22→08:01)
[2018-06-09] MEDS: SODIUM CHLORIDE FLUSH 0.9% 10 ML SYRINGE IVP SCH ×3 (01:36→16:33)
[2018-06-09] MEDS: hydrALAZINE INJ 20 MG/ML VIAL IVP SCH ×4 (04:54→21:15)
[2018-06-09] MEDS: ACETAMINOPHEN 1,000 MG/100 ML 100 ML IV SCH ×3 (05:27→16:33)
[2018-06-09 05:56] LABS: BASOPHILS # (AUTO) 0.1 10^3/uL (0.0-0.1); EOSINOPHILS # (AUTO) 0.1 10^3/uL (0.0-0.7); EOSINOPHILS % (AUTO) 0.4 %; HGB - HEMOGLOBIN 14.4 g/dL (12.0-16.0); LYMPHOCYTES # (AUTO) 2.1 10^3/uL (1.5-3.5); LYMPHOCYTES % (AUTO) 15.3 %; MEAN CORPUSCULAR HEMOGLOBIN 29.8 pg (27.0-31.0); MEAN CORPUSCULAR HGB CONC 33.3 g/dL (32.0-36.0); MEAN CORPUSCULAR VOLUME 89.5 fL (81.0-99.0); MEAN PLATELET VOLUME 9.5 fL (7.9-10.8); MONOCYTES # (AUTO) 0.7 10^3/uL (0.0-1.0); MONOCYTES % (AUTO) 5.5 %; NEUTROPHILS # (AUTO) 10.5 10^3/uL (1.5-6.6); NEUTROPHILS % (AUTO) 77.8 %; PLT - PLATELET COUNT 257 10^3/uL (130-450); RED BLOOD COUNT 4.85 10^6/uL (4.20-5.40); RED CELL DISTRIBUTION WIDTH 14.7 % (12.0-15.0); WHITE BLOOD COUNT 13.6 x10^3/uL (4.8-10.8)
[2018-06-09 06:07] LABS: ALBUMIN 4.1 g/dL (3.2-5.5); ALBUMIN/GLOBULIN RATIO 1.4 (1.0-2.2); BILIRUBIN,TOTAL 1.4 mg/dL (0.2-1.0); CALCIUM 9.2 mg/dL (8.5-10.3); CREATININE 0.9 mg/dL (0.4-1.0); HB2 TOTAL 15.4 g/dL; HEMOGLOBIN A1C 0.73 g/dL; HEMOGLOBIN A1C % 6.5 % (4.6-6.2); MAGNESIUM 1.7 mg/dL (1.7-2.8)
[2018-06-09 06:20] LABS: PLATELET ESTIMATE, MANUAL NORMAL (130-450,000) (NORMAL)
[2018-06-09] MEDS: ONDANSETRON 4 MG/2 ML VIAL IVP PRN ×2 (06:27→10:45)
[2018-06-09] MEDS: CALCIUM CARBONATE CHEW 500 MG TABLET PO PRN ×2 (06:40→13:59)
[2018-06-09] MEDS ORDERED: glipiZIDE 5 MG TABLET PO SCH (07:30)
[2018-06-09] MEDS: SACCHAROMYCES BOULARDII 250 MG CAPSULE PO SCH ×2 (08:00→16:34)
[2018-06-09] MEDS: LOSARTAN 50 MG TABLET PO SCH (08:00)
[2018-06-09] MEDS: POLYETHYLENE GLYCOL 3350 17 GM PACKET PO SCH (08:01)
[2018-06-09] MEDS: VANCOMYCIN 125 MG CAPSULE PO SCH (08:01)
[2018-06-09] MEDS ORDERED: IOPAMIDOL-300 100 ML VIAL ONE (09:12)
[2018-06-09] MEDS ORDERED: IOPAMIDOL-300 50 ML VIAL ONE (09:12)
--- NOTE | 2018-06-09 09:12 | PROVIDER PROGRESS NOTE ---
Subjective - Prog Note Date Prog Note Date: 06/09/18 Prog Note Time: 09:10 - Subjective Pt reports feeling: No change Subjective: Nicole continues to complain about abdominal pain that is in both upper quadrants , and radiates to lateral torso. She also has ongoing nausea, vomiting, or diarrhea. She denies any new symptoms including; shortness of breath, bleeding , dizziness, or a new cough. Current Medications - Current Medications Current Medications: Active Medications Calcium Carbonate/Glycine (Tums) 500 mg PO QID PRN PRN Reason: Heartburn Last Admin: 06/09/18 06:40 Dose: 500 mg Diphenhydramine HCl (Benadryl Inj) 25 mg IVP Q6H PRN PRN Reason: Allergy Symptoms Fentanyl (Duragesic) 2 patch TOP Q72H [facility] Last Admin: 06/08/18 15:56 Dose: Not Given Fidaxomicin (Dificid) 200 mg PO BID [facility] Last Admin: 06/09/18 09:36 Dose: 200 mg Hydralazine HCl (Apresoline Inj) 10 mg IVP Q6H [facility] Last Admin: 06/09/18 09:35 Dose: 10 mg Potassium Chloride/Sodium Chloride (Normal Saline 0.9% W/20 Meq Kcl) 1,000 mls @ 125 mls/hr IV .Q8H [facility] Last Admin: 06/09/18 10:48 Dose: 125 mls/hr Acetaminophen (Ofirmev) 100 mls @ 400 mls/hr IV Q6H [facility] Last Infusion: 06/09/18 11:31 Dose: Infused Metoclopramide HCl (Reglan Inj) 5 mg IVP Q6HR [facility] Last Admin: 06/09/18 12:02 Dose: 5 mg Metoprolol Tartrate (Lopressor Inj) 5 mg IVP Q6H [facility] Last Admin: 06/09/18 09:36 Dose: 5 mg Ondansetron HCl (Zofran Inj) 4 mg IVP Q4HR PRN PRN Reason: Nausea / Vomiting Last Admin: 06/09/18 10:45 Dose: 4 mg Oxycodone HCl (Roxicodone) 5 mg PO Q6H PRN PRN Reason: PAIN Last Admin: 06/08/18 22:03 Dose: 5 mg Polyethylene Glycol (Miralax) 17 gm PO DAILY [facility] Last Admin: 06/09/18 08:01 Dose: Not Given Saccharomyces Boeunicedii (Florastor) 500 mg PO BIDWM [facility] Last Admin: 06/09/18 08:00 Dose: 500 mg Sodium Chloride (Normal Saline Flush 0.9%) 10 ml IVP PRN PRN PRN Reason: NEEDED PER PROVIDER ORDERS Sodium Chloride (Normal Saline Flush 0.9%) 10 ml IVP 0100,0900,1700 [facility] Last Admin: 06/09/18 08:01 Dose: 10 ml Zolpidem Tartrate (Ambien) 5 mg PO QPM PRN PRN Reason: Insomnia Simvastatin 40 mg PO QPM 11/25/15 Carvedilol [Coreg] 6.25 mg PO BID 12/04/16 Ondansetron [Ondansetron Odt] 8 mg PO Q8H PRN 01/12/18 fentaNYL [Fentanyl 12mcg patch] 24 mcg TOP Q72H 01/12/18 glipiZIDE [Glipizide] 5 mg PO 0730 01/12/18 Telmisartan 40 mg PO DAILY 04/25/18 Objective - Vital Signs/Intake & Output Reviewed Vital Signs: Yes Vital Signs: Vital Signs x48h Temp Pulse Resp BP BP Pulse Ox 06/09/18 07:58 37.2 C 108 H 20 178/99 H 97 06/09/18 06:41 98 197/99 H 06/09/18 06:15 102 H 180/93 H 06/09/18 05:12 84 139/78 H 06/09/18 05:07 77 155/88 H 06/09/18 04:57 90 172/84 H 06/09/18 04:08 36.8 C 85 16 131/80 H 97 Intake & Output: Intake & Output 06/06/18 06/07/18 06/08/18 06/09/18 23:59 23:59 23:59 23:59 Intake Total 2220 412.5 Output Total 401 100 Balance 1819 312.5 - Objective General Appearance: positive: Alert, Moderate distress, Anxious Eyes Bilateral: positive: Normal inspection Eyes: OU Conjunctivae pale ENT: positive: ENT inspection nml, Pharynx nml, Pharyngeal erythema, Dry mucous membranes Neck: positive: Nml inspection, Thyroid nml, No JVD, Lymphadenopathy (R), Lymphadenopathy (L), Stiff neck Respiratory: positive: Chest non-tender, No respiratory distress Cardiovascular: positive: Regular rate & rhythm, No gallop, Systolic murmur Peripheral Pulses: 2+ Radial (R), 2+ Radial (L) Abdomen: positive: Tenderness, Guarding, Abnml bowel sounds (hyperactive) Back: positive: Nml inspection Skin: positive: No rash, Warm, Dry Extremities: positive: Non-tender, Full ROM, Nml appearance Neurologic/Psychiatric: positive: Oriented x3, CN's nml (2-12), Motor nml, Sensation nml, Depressed mood/affect Reflexes: Bicep (R): 3+, Bicep (L): 3+ - Lab Results Fish Bones: 06/09/18 05:25 06/09/18 05:25 Other Labs: Lab Results x24hrs 06/09/18 06/09/18 06/09/18 Range/Units 05:25 05:25 05:25 WBC (4.8-10.8) x10^3/uL RBC (4.20-5.40) 10^6/uL Hgb (12.0-16.0) g/dL Hct (37.0-47.0) % MCV (81.0-99.0) fL MCH (27.0-31.0) pg MCHC (32.0-36.0) g/dL RDW (12.0-15.0) % Plt Count (130-450) 10^3/uL MPV (7.9-10.8) fL Neut # (Auto) (1.5-6.6) 10^3/uL Lymph # (Auto) (1.5-3.5) 10^3/uL [place] # (Auto) (0.0-1.0) 10^3/uL Eos # (Auto) (0.0-0.7) 10^3/uL Baso # (Auto) (0.0-0.1) 10^3/uL Absolute Nucleated RBC x10^3/uL Nucleated RBC % /100WBC Platelet Estimate (NORMAL) Sodium (135-145) mmol/L Potassium (3.5-5.0) mmol/L Chloride (101-111) mmol/L Carbon Dioxide (21-32) mmol/L Anion Gap (6-13) BUN (6-20) mg/dL Creatinine (0.4-1.0) mg/dL Estimated GFR (MDRD) (>89) Glucose (70-100) mg/dL Glycated Hemoglobin 6.5 H (4.6-6.2) % Estim Average Glucose 140 H (70-100) Calcium (8.5-10.3) mg/dL Magnesium (1.7-2.8) mg/dL Total Bilirubin (0.2-1.0) mg/dL AST (10-42) IU/L ALT (10-60) IU/L Alkaline Phosphatase (42-121) IU/L B-Natriuretic Peptide 248 H (5-100) pg/mL Total Protein (6.7-8.2) g/dL Albumin (3.2-5.5) g/dL Globulin (2.1-4.2) g/dL Albumin/Globulin Ratio (1.0-2.2) Amylase (28-100) U/L Lipase (22-51) U/L TSH 0.93 (0.34-5.60) uIU/mL 06/09/18 06/09/18 Range/Units 05:25 05:25 WBC 13.6 H (4.8-10.8) x10^3/uL RBC 4.85 (4.20-5.40) 10^6/uL Hgb 14.4 (12.0-16.0) g/dL Hct 43.4 (37.0-47.0) % MCV 89.5 (81.0-99.0) fL MCH 29.8 (27.0-31.0) pg MCHC 33.3 (32.0-36.0) g/dL RDW 14.7 (12.0-15.0) % Plt Count 257 (130-450) 10^3/uL MPV 9.5 (7.9-10.8) fL Neut # (Auto) 10.5 H (1.5-6.6) 10^3/uL Lymph # (Auto) 2.1 (1.5-3.5) 10^3/uL [place] # (Auto) 0.7 (0.0-1.0) 10^3/uL Eos # (Auto) 0.1 (0.0-0.7) 10^3/uL Baso # (Auto) 0.1 (0.0-0.1) 10^3/uL Absolute Nucleated RBC 0.03 x10^3/uL Nucleated RBC % 0.3 /100WBC Platelet Estimate NORMAL (130-450,000) (NORMAL) Sodium 135 (135-145) mmol/L Potassium 3.4 L (3.5-5.0) mmol/L Chloride 102 (101-111) mmol/L Carbon Dioxide 22 (21-32) mmol/L Anion Gap 11.0 (6-13) BUN 18 (6-20) mg/dL Creatinine 0.9 (0.4-1.0) mg/dL Estimated GFR (MDRD) 63 L (>89) Glucose 136 H (70-100) mg/dL Glycated Hemoglobin (4.6-6.2) % Estim Average Glucose (70-100) Calcium 9.2 (8.5-10.3) mg/dL Magnesium 1.7 (1.7-2.8) mg/dL Total Bilirubin 1.4 H (0.2-1.0) mg/dL AST 19 (10-42) IU/L ALT 15 (10-60) IU/L Alkaline Phosphatase 52 (42-121) IU/L B-Natriuretic Peptide (5-100) pg/mL Total Protein 7.0 (6.7-8.2) g/dL Albumin 4.1 (3.2-5.5) g/dL Globulin 2.9 (2.1-4.2) g/dL Albumin/Globulin Ratio 1.4 (1.0-2.2) Amylase 252 H (28-100) U/L Lipase 347 H (22-51) U/L TSH (0.34-5.60) uIU/mL - Diagnostic Imaging Diagnostic Imaging Results: positive: Prelim report reviewed, Final report reviewed ABX Reporting Has patient been on IV antibiotics over the past 48 hours?: Yes Assessment/Plan - Problem List (1) Recurrent Clostridium difficile diarrhea Impression: The patient was last admitted on 04/24/18, for a similar episode of C-diff. She was on a prolonged taper of oral Vanco that just finished 48 hours prior to this admission. She very quickly started to have N/V/D, without blood. She was started on IV Flagyl, high dose oral vanco at 500 mg PO QID, a probiotic, IV reglan, and TUMS as requested. Today, she is showing signs of acute pancreatitis based on pancreatic enzymes, so IV flagyl and vanco was replaced with Fidaxomicin, which is recommended for severe CDI. The goal is to treat this severe CDI, so a more aggressive treatment is necessary to stabilize her, then after this treatment, [place]. She is not tolerating food, liquids, continues to have N/V and incontinent diarrhea upon exam, similar to yesterday's exam. Imaging is pending as I want to rule out toxic saloni-colon as the cause of her ongoing abdominal pain. I have pre-sent Fidaxomicin to both the patient's preferred pharmacy and to the [facility] pharmacy as cost may be an issue as per our pharmacy. Plan: Contact precautions, continue treatment, and recommend prompt GI follow up after this hospital stay. (2) Pancreatitis, acute Impression: The patient continued to have increased abdominal pain, so pancreatic enzymes were added this morning and indicate acute pancreatitis. Amylase was 252, lipase was 347. The patient states that she has a history of gall stones, she was originally prescribed IV flagyl, and either of these could be a cause of this acute illness. We will await abdominal/pelvis results and order a retroperitoneal US to check on these gallstones. I have also stopped her oral glipizide, due to lack of absorption, and to reduce the risk of her condition worsening. Plan: continue pain control, and await final results. Continue to trend daily enzymes; amylase, lipase. Check a lipid panel, and triglyceride level in the AM. Qualifiers: Pancreatitis type: idiopathic (3) Nausea vomiting and diarrhea Impression: The patient has been having nausea, vomiting, and diarrhea and these were the primary complaints upon admission. These symptoms are likely a result of her recurrent c-diff colitis. She is on clear liquids, for comfort as she complains of having a very dry mouth. She denies skin break down surrounding her anus, although was incontinent during this exam of stool. Plan: Continue to treat with zofran, scheduled Reglan, TUMS per her request, and consider benzos if no relief. (4) IRINA (acute kidney injury) Impression: The patient is found to have decreased kidney function with an elevated creatinine of 1.6, and a reduced GFR of 32 at the time of admission. This improved today with a creatinine of 0.9, and a nearly normal GFR of 63. She has a baseline creatinine of 0.8, and a typical GFR in the 60's. *Since the kidney function has improved, an abdominal/pelvis CT was ordered today with contrast. Plan: Continue to monitor daily labs, and supplement with continuous IVFs. 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 She did not fracture any thing, but since that time has had at least 3 spinal surgeries. She continues to have chronic, daily , unrelenting low back pain for which she sees a pain clinic and is prescribed a duragesic fentanyl patch and ora oxycodone. These are continued while in the hospital, with tylenol if needed. Plan: Continue to monitor. Qualifiers: Back pain location: low back pain Back pain laterality: bilateral Sciatica presence: unspecified whether sciatica present Qualified Code(s): M54.5 - Low back pain; G89.29 - Other chronic pain; G89.29 - Other chronic pain (6) DM2 (diabetes mellitus, type 2) Impression: The patient has been controlled on oral meds at home using glipizide, which has been placed on hold today in light of the acute pancreatitis. We will also do AC/HS blood glucose monitoring and a carb controlled diet once she is tolerating PO. Her current HgA1C today was 6.5%. Blood glucose checks have been changed to NPO schedule due to her ongoing N/V/D. Plan: Start Lantus at HS, and monitor BSs. (7) Hypertension Impression: The patient is prescribed an ARB, and coreg at home for her HTN. Her blood pressure has been elevated, and she has been prescribed IV hydralazine, and IV metoprolol as her GI absorption is reduced. An echocardiogram was obtained and preliminary results show LV hypertrophy; and was ordered for her ongoing uncontrolled HTN, and a murmur heard on exam. Given her acute pancreatitis today, the Losartan is now on hold. Plan: Continue to monitor vital signs, telemetry. Qualifiers: Hypertension type: essential hypertension Qualified Code(s): I10 - Essential (primary) hypertension
[2018-06-09] MEDS: FIDAXOMICIN 200 MG TABLET PO SCH ×2 (09:36→21:14)
[2018-06-09] MEDS: NS W/20 MEQ KCL 1,000 ML IV SCH ×4 (10:48→21:18)
[2018-06-09] MEDS ORDERED: IOPAMIDOL-300 100 ML VIAL IVP ONE (13:33)
[2018-06-09] MEDS ORDERED: IOPAMIDOL-300 50 ML VIAL PO ONE (13:33)
--- NOTE | 2018-06-09 14:18 | CT Report ---
Reason: abdominal pain, +c-diff colitis Procedure Date: 06/09/2018 Accession Number: [id number] / [id number] Procedure: CT - Abdomen/Pelvis W/ CPT Code: FULL RESULT: EXAM: CT ABDOMEN AND PELVIS EXAM DATE: 06/09/2018 01:30 PM. CLINICAL HISTORY: Abdominal pain. C. Difficile colitis. COMPARISONS: Abdomen pelvis CT 02/27/2018. TECHNIQUE: Routine helical CT imaging was performed through the abdomen and pelvis. IV contrast: 100 cc Omnipaque 350. Enteric contrast: Yes. Reconstructions: Coronal and sagittal. In accordance with CT protocol optimization, one or more of the following dose reduction techniques were utilized for this exam: automated exposure control, adjustment of mA and/or KV based on patient size, or use of iterative reconstructive technique. FINDINGS: Lung Bases: Unremarkable. Liver: Normal contour. No masses. Gallbladder/Bile Ducts: Small gallstones are noted. Spleen: Normal. Pancreas: Normal. Adrenal Glands: Normal. Kidneys: Superior pole right renal mass 1.8 cm. No change when measured similarly. There are bilateral renal cortical cysts. Peritoneal Cavity/Bowel: No free fluid, free air or adenopathy. No masses or acute inflammatory process. There are colon diverticula without evidence of diverticulitis. Pelvic Organs: . The bladder and visualized pelvic organs are within normal limits. Vasculature: No aneurysms or other significant abnormality. Bones: No bone lesions. Multiple level lumbar fusion is noted. IMPRESSION: Persistent right renal mass. No acute abdominal findings. [facility]
[2018-06-09] MEDS ORDERED: LORazepam 0.5 MG TABLET PO PRN (16:11)
[2018-06-09] MEDS ORDERED: PROCHLORPERAZINE 10 MG/2 ML VIAL IVP PRN (16:20)
[2018-06-09] MEDS: GI COCKTAIL 120 ML BOTTLE PO SCH ×2 (16:59→21:15)
[2018-06-09 18:29] LABS: CALCIUM 9.8 mg/dL (8.5-10.3); CREATININE 0.9 mg/dL (0.4-1.0)
[2018-06-09] MEDS: ZOLPIDEM 5 MG TABLET PO SCH (21:14)
[2018-06-09] MEDS: INSULIN GLARGINE 300 UNIT/3 ML PEN SUBQ SCH (21:16)
--- NOTE | 2018-06-10 00:21 | Ultrasound Report ---
Reason: acute pancreatitis Procedure Date: 06/09/2018 Accession Number: [id number] / [id number] Procedure: US - Abdomen Limited CPT Code: FULL RESULT: EXAM: ABDOMEN ULTRASOUND LIMITED, RUQ EXAM DATE: 06/09/2018 11:15 PM. CLINICAL HISTORY: Acute pancreatitis. COMPARISON: ABDOMEN LIMITED 12/01/2015. ABDOMEN/PELVIS W/ 06/09/2018. TECHNIQUE: Real-time scanning was performed with static images obtained. FINDINGS: Liver: Normal in size . Heterogeneous hyperechoic Echotexture. 16.1 cm. Main portal vein flow: Hepatopetal. Gallbladder: Multiple cholelithiasis. No wall thickening or sonographic John's sign. Biliary System: CBD measures 4 mm. Suboptimal visualization of the pancreas. No right hydronephrosis. No free fluid. Other: None. IMPRESSION: 1. Multiple cholelithiasis without wall thickening or ductal dilatation. 2. Hepatic steatosis. [facility]
[2018-06-10] MEDS: SODIUM CHLORIDE FLUSH 0.9% 10 ML SYRINGE IVP SCH ×3 (01:07→17:07)
[2018-06-10] MEDS: GI COCKTAIL 120 ML BOTTLE PO SCH ×4 (03:38→21:01)
[2018-06-10] MEDS: METOCLOPRAMIDE 10 MG/2 ML VIAL IVP SCH ×2 (03:38→06:10)
[2018-06-10] MEDS: METOPROLOL 5 MG/5 ML VIAL IVP SCH (03:43)
[2018-06-10] MEDS: hydrALAZINE INJ 20 MG/ML VIAL IVP SCH (03:48)
[2018-06-10 06:01] LABS: BASOPHILS # (AUTO) 0.1 10^3/uL (0.0-0.1); BASOPHILS % (AUTO) 0.8 %; EOSINOPHILS % (AUTO) 0.2 %; HGB - HEMOGLOBIN 14.8 g/dL (12.0-16.0); LYMPHOCYTES # (AUTO) 1.3 10^3/uL (1.5-3.5); LYMPHOCYTES % (AUTO) 11.7 %; MEAN CORPUSCULAR HEMOGLOBIN 30.7 pg (27.0-31.0); MEAN CORPUSCULAR HGB CONC 34.4 g/dL (32.0-36.0); MEAN CORPUSCULAR VOLUME 89.2 fL (81.0-99.0); MEAN PLATELET VOLUME 8.3 fL (7.9-10.8); MONOCYTES # (AUTO) 0.7 10^3/uL (0.0-1.0); NEUTROPHILS % (AUTO) 81.3 %; PLT - PLATELET COUNT 267 10^3/uL (130-450); RED BLOOD COUNT 4.82 10^6/uL (4.20-5.40); WHITE BLOOD COUNT 11.1 x10^3/uL (4.8-10.8)
[2018-06-10] MEDS: ACETAMINOPHEN 1,000 MG/100 ML 100 ML IV SCH ×2 (06:11)
[2018-06-10 06:19] LABS: ALBUMIN 4.1 g/dL (3.2-5.5); ALBUMIN/GLOBULIN RATIO 1.5 (1.0-2.2); BILIRUBIN,TOTAL 1.1 mg/dL (0.2-1.0); CREATININE 0.9 mg/dL (0.4-1.0); TOTAL PROTEIN 6.8 g/dL (6.7-8.2)
[2018-06-10 06:21] LABS: AMYLASE 107 U/L (28-100); CHOL/HDL RATIO 3.6 (<4.4); CHOLESTEROL 162 mg/dL; HDL CHOLESTEROL 45 mg/dL; LDL CHOLESTEROL,CALCULATED 89 mg/dL; LIPASE 52 U/L (22-51); VLDL CHOLESTEROL 28 mg/dL
[2018-06-10] MEDS ORDERED: METOPROLOL SUCCINATE 25 MG TABLET PO SCH (09:20)
--- NOTE | 2018-06-10 09:21 | PROVIDER PROGRESS NOTE ---
Subjective - Prog Note Date Prog Note Date: 06/10/18 Prog Note Time: 09:21 - Subjective Pt reports feeling: No change Objective - Vital Signs/Intake & Output Vital Signs: Vital Signs x48h Temp Pulse Resp BP BP Pulse Ox 06/10/18 08:13 37.5 C 102 H 24 133/72 H 95 06/10/18 03:48 160/102 H 06/10/18 03:43 160/102 H Intake & Output: Intake & Output 06/07/18 06/08/18 06/09/18 06/10/18 23:59 23:59 23:59 23:59 Intake Total 2220 3357.08 603.75 Output Total 401 1550 Balance 1819 1807.08 603.75 - Lab Results Fish Bones: 06/10/18 05:45 06/10/18 05:45 Other Labs: Lab Results x24hrs 06/10/18 06/10/18 06/10/18 Range/Units 05:45 05:45 05:45 WBC (4.8-10.8) x10^3/uL RBC (4.20-5.40) 10^6/uL Hgb (12.0-16.0) g/dL Hct (37.0-47.0) % MCV (81.0-99.0) fL MCH (27.0-31.0) pg MCHC (32.0-36.0) g/dL RDW (12.0-15.0) % Plt Count (130-450) 10^3/uL MPV (7.9-10.8) fL Neut # (Auto) (1.5-6.6) 10^3/uL Lymph # (Auto) (1.5-3.5) 10^3/uL [place] # (Auto) (0.0-1.0) 10^3/uL Eos # (Auto) (0.0-0.7) 10^3/uL Baso # (Auto) (0.0-0.1) 10^3/uL Absolute Nucleated RBC x10^3/uL Nucleated RBC % /100WBC ESR (0-30) mm/Hr Sodium 133 L (135-145) mmol/L Potassium 3.3 L (3.5-5.0) mmol/L Chloride 101 (101-111) mmol/L Carbon Dioxide 22 (21-32) mmol/L Anion Gap 10.0 (6-13) BUN 15 (6-20) mg/dL Creatinine 0.9 (0.4-1.0) mg/dL Estimated GFR (MDRD) 63 L (>89) Glucose 168 H (70-100) mg/dL POC Whole Bld Glucose (70 - 100) mg/dL Lactic Acid (0.5-2.2) mmol/L Calcium 9.0 (8.5-10.3) mg/dL Total Bilirubin 1.1 H (0.2-1.0) mg/dL AST 17 (10-42) IU/L ALT 14 (10-60) IU/L Alkaline Phosphatase 54 (42-121) IU/L Troponin I (<0.49) ng/mL C-Reactive Protein (0-1.0) mg/dL B-Natriuretic Peptide 261 H (5-100) pg/mL Total Protein 6.8 (6.7-8.2) g/dL Albumin 4.1 (3.2-5.5) g/dL Globulin 2.7 (2.1-4.2) g/dL Albumin/Globulin Ratio 1.5 (1.0-2.2) Triglycerides 142 ( - 149) mg/dL Cholesterol 162 ( - 199) mg/dL LDL Cholesterol, Calc 89 ( - 129) mg/dL VLDL Cholesterol 28 mg/dL HDL Cholesterol 45 L (60 - ) mg/dL LDL/HDL Ratio 2.0 (<4.4) Cholesterol/HDL Ratio 3.6 (<4.4) Amylase 107 H (28-100) U/L Lipase 52 H (22-51) U/L 06/10/18 06/10/18 06/09/18 Range/Units 05:45 05:37 23:48 WBC 11.1 H (4.8-10.8) x10^3/uL RBC 4.82 (4.20-5.40) 10^6/uL Hgb 14.8 (12.0-16.0) g/dL Hct 43.0 (37.0-47.0) % MCV 89.2 (81.0-99.0) fL MCH 30.7 (27.0-31.0) pg MCHC 34.4 (32.0-36.0) g/dL RDW 15.0 (12.0-15.0) % Plt Count 267 (130-450) 10^3/uL MPV 8.3 (7.9-10.8) fL Neut # (Auto) 9.0 H (1.5-6.6) 10^3/uL Lymph # (Auto) 1.3 L (1.5-3.5) 10^3/uL [place] # (Auto) 0.7 (0.0-1.0) 10^3/uL Eos # (Auto) 0.0 (0.0-0.7) 10^3/uL Baso # (Auto) 0.1 (0.0-0.1) 10^3/uL Absolute Nucleated RBC 0.00 x10^3/uL Nucleated RBC % 0.0 /100WBC ESR (0-30) mm/Hr Sodium (135-145) mmol/L Potassium (3.5-5.0) mmol/L Chloride (101-111) mmol/L Carbon Dioxide (21-32) mmol/L Anion Gap (6-13) BUN (6-20) mg/dL Creatinine (0.4-1.0) mg/dL Estimated GFR (MDRD) (>89) Glucose (70-100) mg/dL POC Whole Bld Glucose 192 H 167 H (70 - 100) mg/dL Lactic Acid (0.5-2.2) mmol/L Calcium (8.5-10.3) mg/dL Total Bilirubin (0.2-1.0) mg/dL AST (10-42) IU/L ALT (10-60) IU/L Alkaline Phosphatase (42-121) IU/L Troponin I (<0.49) ng/mL C-Reactive Protein (0-1.0) mg/dL B-Natriuretic Peptide (5-100) pg/mL Total Protein (6.7-8.2) g/dL Albumin (3.2-5.5) g/dL Globulin (2.1-4.2) g/dL Albumin/Globulin Ratio (1.0-2.2) Triglycerides ( - 149) mg/dL Cholesterol ( - 199) mg/dL LDL Cholesterol, Calc ( - 129) mg/dL VLDL Cholesterol mg/dL HDL Cholesterol (60 - ) mg/dL LDL/HDL Ratio (<4.4) Cholesterol/HDL Ratio (<4.4) Amylase (28-100) U/L Lipase (22-51) U/L 06/09/18 06/09/18 06/09/18 Range/Units 20:45 18:08 18:08 WBC (4.8-10.8) x10^3/uL RBC (4.20-5.40) 10^6/uL Hgb (12.0-16.0) g/dL Hct (37.0-47.0) % MCV (81.0-99.0) fL MCH (27.0-31.0) pg MCHC (32.0-36.0) g/dL RDW (12.0-15.0) % Plt Count (130-450) 10^3/uL MPV (7.9-10.8) fL Neut # (Auto) (1.5-6.6) 10^3/uL Lymph # (Auto) (1.5-3.5) 10^3/uL [place] # (Auto) (0.0-1.0) 10^3/uL Eos # (Auto) (0.0-0.7) 10^3/uL Baso # (Auto) (0.0-0.1) 10^3/uL Absolute Nucleated RBC x10^3/uL Nucleated RBC % /100WBC ESR (0-30) mm/Hr Sodium (135-145) mmol/L Potassium (3.5-5.0) mmol/L Chloride (101-111) mmol/L Carbon Dioxide (21-32) mmol/L Anion Gap (6-13) BUN (6-20) mg/dL Creatinine (0.4-1.0) mg/dL Estimated GFR (MDRD) (>89) Glucose (70-100) mg/dL POC Whole Bld Glucose 118 H (70 - 100) mg/dL Lactic Acid (0.5-2.2) mmol/L Calcium (8.5-10.3) mg/dL Total Bilirubin (0.2-1.0) mg/dL AST (10-42) IU/L ALT (10-60) IU/L Alkaline Phosphatase (42-121) IU/L Troponin I < 0.04 (<0.49) ng/mL C-Reactive Protein < 1.0 (0-1.0) mg/dL B-Natriuretic Peptide (5-100) pg/mL Total Protein (6.7-8.2) g/dL Albumin (3.2-5.5) g/dL Globulin (2.1-4.2) g/dL Albumin/Globulin Ratio (1.0-2.2) Triglycerides ( - 149) mg/dL Cholesterol ( - 199) mg/dL LDL Cholesterol, Calc ( - 129) mg/dL VLDL Cholesterol mg/dL HDL Cholesterol (60 - ) mg/dL LDL/HDL Ratio (<4.4) Cholesterol/HDL Ratio (<4.4) Amylase (28-100) U/L Lipase (22-51) U/L 06/09/18 06/09/18 06/09/18 Range/Units 18:08 18:08 18:08 WBC (4.8-10.8) x10^3/uL RBC (4.20-5.40) 10^6/uL Hgb (12.0-16.0) g/dL Hct (37.0-47.0) % MCV (81.0-99.0) fL MCH (27.0-31.0) pg MCHC (32.0-36.0) g/dL RDW (12.0-15.0) % Plt Count (130-450) 10^3/uL MPV (7.9-10.8) fL Neut # (Auto) (1.5-6.6) 10^3/uL Lymph # (Auto) (1.5-3.5) 10^3/uL [place] # (Auto) (0.0-1.0) 10^3/uL Eos # (Auto) (0.0-0.7) 10^3/uL Baso # (Auto) (0.0-0.1) 10^3/uL Absolute Nucleated RBC x10^3/uL Nucleated RBC % /100WBC ESR 1 (0-30) mm/Hr Sodium 131 L (135-145) mmol/L Potassium 3.2 L (3.5-5.0) mmol/L Chloride 96 L (101-111) mmol/L Carbon Dioxide 25 (21-32) mmol/L Anion Gap 10.0 (6-13) BUN 12 (6-20) mg/dL Creatinine 0.9 (0.4-1.0) mg/dL Estimated GFR (MDRD) 63 L (>89) Glucose 157 H (70-100) mg/dL POC Whole Bld Glucose (70 - 100) mg/dL Lactic Acid 1.1 (0.5-2.2) mmol/L Calcium 9.8 (8.5-10.3) mg/dL Total Bilirubin (0.2-1.0) mg/dL AST (10-42) IU/L ALT (10-60) IU/L Alkaline Phosphatase (42-121) IU/L Troponin I (<0.49) ng/mL C-Reactive Protein (0-1.0) mg/dL B-Natriuretic Peptide (5-100) pg/mL Total Protein (6.7-8.2) g/dL Albumin (3.2-5.5) g/dL Globulin (2.1-4.2) g/dL Albumin/Globulin Ratio (1.0-2.2) Triglycerides ( - 149) mg/dL Cholesterol ( - 199) mg/dL LDL Cholesterol, Calc ( - 129) mg/dL VLDL Cholesterol mg/dL HDL Cholesterol (60 - ) mg/dL LDL/HDL Ratio (<4.4) Cholesterol/HDL Ratio (<4.4) Amylase (28-100) U/L Lipase (22-51) U/L 06/09/ Range/Units 16:29 WBC (4.8-10.8) x10^3/uL RBC (4.20-5.40) 10^6/uL Hgb (12.0-16.0) g/dL Hct (37.0-47.0) % MCV (81.0-99.0) fL MCH (27.0-31.0) pg MCHC (32.0-36.0) g/dL RDW (12.0-15.0) % Plt Count (130-450) 10^3/uL MPV (7.9-10.8) fL Neut # (Auto) (1.5-6.6) 10^3/uL Lymph # (Auto) (1.5-3.5) 10^3/uL [place] # (Auto) (0.0-1.0) 10^3/uL Eos # (Auto) (0.0-0.7) 10^3/uL Baso # (Auto) (0.0-0.1) 10^3/uL Absolute Nucleated RBC x10^3/uL Nucleated RBC % /100WBC ESR (0-30) mm/Hr Sodium (135-145) mmol/L Potassium (3.5-5.0) mmol/L Chloride (101-111) mmol/L Carbon Dioxide (21-32) mmol/L Anion Gap (6-13) BUN (6-20) mg/dL Creatinine (0.4-1.0) mg/dL Estimated GFR (MDRD) (>89) Glucose (70-100) mg/dL POC Whole Bld Glucose 159 H (70 - 100) mg/dL Lactic Acid (0.5-2.2) mmol/L Calcium (8.5-10.3) mg/dL Total Bilirubin (0.2-1.0) mg/dL AST (10-42) IU/L ALT (10-60) IU/L Alkaline Phosphatase (42-121) IU/L Troponin I (<0.49) ng/mL C-Reactive Protein (0-1.0) mg/dL B-Natriuretic Peptide (5-100) pg/mL Total Protein (6.7-8.2) g/dL Albumin (3.2-5.5) g/dL Globulin (2.1-4.2) g/dL Albumin/Globulin Ratio (1.0-2.2) Triglycerides ( - 149) mg/dL Cholesterol ( - 199) mg/dL LDL Cholesterol, Calc ( - 129) mg/dL VLDL Cholesterol mg/dL HDL Cholesterol (60 - ) mg/dL LDL/HDL Ratio (<4.4) Cholesterol/HDL Ratio (<4.4) Amylase (28-100) U/L Lipase (22-51) U/L Assessment/Plan - Problem List (2) Pancreatitis, acute Qualifiers: Pancreatitis type: idiopathic (5) Chronic back pain Qualifiers: Back pain location: low back pain Back pain laterality: bilateral Sciatica presence: unspecified whether sciatica present Qualified Code(s): M54.5 - Low back pain; G89.29 - Other chronic pain; G89.29 - Other chronic pain (7) Hypertension Qualifiers: Hypertension type: essential hypertension Qualified Code(s): I10 - Essential (primary) hypertension
[2018-06-10] MEDS ORDERED: ACETAMINOPHEN 325 MG TABLET PO PRN (09:22)
[2018-06-10] MEDS: SACCHAROMYCES BOULARDII 250 MG CAPSULE PO SCH ×2 (09:30→17:06)
[2018-06-10] MEDS ORDERED: METOCLOPRAMIDE 10 MG TABLET PO SCH (10:00)
[2018-06-10] MEDS: hydrALAZINE 25 MG TABLET PO SCH ×4 (10:31→21:01)
[2018-06-10] MEDS: FIDAXOMICIN 200 MG TABLET PO SCH ×2 (10:31→21:00)
[2018-06-10] MEDS: POLYETHYLENE GLYCOL 3350 17 GM PACKET PO SCH (10:31)
[2018-06-10] MEDS: NS W/20 MEQ KCL 1,000 ML IV SCH (10:35)
--- NOTE | 2018-06-10 11:31 | Discharge Plan ---
Discharge Plan Disposition: Home, Self Care Condition: Good Prescriptions: Carvedilol [Coreg] 12.5 mg PO BID #60 tablet hydrALAZINE [Apresoline] 25 mg PO TID #90 tablet Saccharomyces Boulardii [Florastor] 250 mg PO BID #60 capsule Telmisartan 20 mg PO DAILY #30 tablet Vancomycin [Vancocin] 125 mg PO QID #21 capsule Diet: Diabetic Activity Restrictions: No Restrictions Shower Restrictions: No Driving Restrictions: No Weight Bearing: Full Weight Additional Instructions or Follow Up instructions: After this acute illness, you will need to consider a fecal transplant. One provider that we know of is; Dr. Tamiko Vee who a specialist with a focus on Clostridium difficile infection (CDI) and irritable bowel syndrome. This referral must be made by your PCP. Please finish a full 10-day course of the antibiotic, Fidaxomicin 200 mg by mouth twice daily. You are on day #4. I have sent 11 more doses to [facility], and due to cost, no pharmacy could supply this medication at a somewhat affordable cost. Vancomycin 125 mg PO to be taken 4 times per day for the next 7 days was sent to [facility], and I spoke to you on the phone regarding this. Avoid using TUMS as this may cause additional gall stones. A safe alternative is Zantac, and this is over the counter. You can take as needed, or scheduled twice daily. You had an echocardiogram for high blood pressures and high heart rates. There have been slight changes made to your Coreg, Telmisartan and we added Hydralazine as this combination is ideal based on your heart function. 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 Please see your PCP within one week. No Smoking: If you smoke, Please STOP! Call for help. Follow-up with: Provider,Other [Primary Care Provider] -
[2018-06-10] MEDS: METOCLOPRAMIDE 10 MG TABLET PO SCH ×2 (17:06→22:15)
[2018-06-10] MEDS: ONDANSETRON 4 MG/2 ML VIAL IVP PRN (17:07)
[2018-06-10] MEDS ORDERED: POTASSIUM CHLORIDE 20 MEQ TABLET PO SCH (18:52)
--- NOTE | 2018-06-10 18:54 | PROVIDER PROGRESS NOTE ---
Subjective - Prog Note Date Prog Note Date: 06/10/18 Prog Note Time: 12:00 - Subjective Pt reports feeling: Improved Subjective: Nicole states that she would like to go home, then later states that she still cannot tolerate much food, has a poor appetite, is not sleeping, and has intermittent nausea. She denies any new symptoms such as chest pain, vomiting, shortness of breath, dizziness, rashes, or a new cough. Current Medications - Current Medications Current Medications: Active Medications Acetaminophen (Tylenol) 650 mg PO Q4HR PRN PRN Reason: Pain or Fever > 38C (100.4F) Calcium Carbonate/Glycine (Tums) 500 mg PO QID PRN PRN Reason: Heartburn Last Admin: 06/09/18 13:59 Dose: 500 mg Carvedilol (Coreg) 12.5 mg PO BID [facility] Diphenhydramine HCl (Benadryl Inj) 25 mg IVP Q6H PRN PRN Reason: Allergy Symptoms Fentanyl (Duragesic) 2 patch TOP Q72H [facility] Last Admin: 06/08/18 15:56 Dose: Not Given Fidaxomicin (Dificid) 200 mg PO BID [facility] Last Admin: 06/10/18 10:31 Dose: 200 mg Hydralazine HCl (Apresoline) 25 mg PO QID [facility] Last Admin: 06/10/18 17:07 Dose: 25 mg Insulin Glargine (Lantus Solostar) 10 unit SUBQ QPM [facility] Last Admin: 06/09/18 21:16 Dose: 10 unit Lorazepam (Ativan) 0.5 mg PO Q6H PRN PRN Reason: Anxiety Last Admin: 06/09/18 16:33 Dose: 0.5 mg Metoclopramide HCl (Reglan) 10 mg PO BID [facility] Last Admin: 06/10/18 17:06 Dose: 10 mg Multi-Ingredient Mouthwash/Gargle () 30 ml PO Q6H [facility] Last Admin: 06/10/18 15:55 Dose: 30 ml Ondansetron HCl (Zofran Inj) 4 mg IVP Q4HR PRN PRN Reason: Nausea / Vomiting Last Admin: 06/10/18 17:07 Dose: 4 mg Oxycodone HCl (Roxicodone) 5 mg PO Q6H PRN PRN Reason: PAIN Last Admin: 06/08/18 22:03 Dose: 5 mg Polyethylene Glycol (Miralax) 17 gm PO DAILY [facility] Last Admin: 06/10/18 10:31 Dose: Not Given Potassium Chloride (K-Dur) 20 meq PO ONCE ONE Stop: 06/10/18 18:53 Prochlorperazine Edisylate (Compazine Inj) 10 mg IVP Q4HR PRN PRN Reason: Nausea / Vomiting Saccharomyces Boulardii (Florastor) 500 mg PO BIDWM [facility] Last Admin: 06/10/18 17:06 Dose: 500 mg Sodium Chloride (Normal Saline Flush 0.9%) 10 ml IVP PRN PRN PRN Reason: NEEDED PER PROVIDER ORDERS Last Admin: 06/10/18 06:11 Dose: 10 ml Sodium Chloride (Normal Saline Flush 0.9%) 10 ml IVP 0100,0900,1700 [facility] Last Admin: 06/10/18 17:07 Dose: 10 ml Zolpidem Tartrate (Ambien) 5 mg PO QPM [facility] Last Admin: 06/09/18 21:14 Dose: 5 mg Simvastatin 40 mg PO QPM 11/25/15 Carvedilol [Coreg] 6.25 mg PO BID 12/04/16 Ondansetron [Ondansetron Odt] 8 mg PO Q8H PRN 01/12/18 fentaNYL [Fentanyl 12mcg patch] 24 mcg TOP Q72H 01/12/18 glipiZIDE [Glipizide] 5 mg PO 0730 01/12/18 Telmisartan 40 mg PO DAILY 04/25/18 Objective - Vital Signs/Intake & Output Reviewed Vital Signs: Yes Vital Signs: Vital Signs x48h Temp Pulse Resp BP Pulse Ox 06/10/18 15:53 37.5 C 106 H 20 152/96 H 98 06/10/18 11:41 37.2 C 100 22 167/80 H 98 Intake & Output: Intake & Output 06/07/18 06/08/18 06/09/18 06/10/18 23:59 23:59 23:59 23:59 Intake Total 2220 3357.08 2314.50 Output Total 401 1550 Balance 1819 1807.08 2314.50 - Objective General Appearance: positive: No acute distress, Alert Eyes Bilateral: positive: Normal inspection, PERRL ENT: positive: ENT inspection nml, Pharynx nml, No signs of dehydration Neck: positive: Nml inspection, Thyroid nml, No JVD Respiratory: positive: Chest non-tender, No respiratory distress, Breath sounds nml Cardiovascular: positive: Regular rate & rhythm, No gallop, Systolic murmur Peripheral Pulses: 2+ Radial (R), 2+ Radial (L) Abdomen: positive: Nml bowel sounds, Tenderness, Guarding, Other (obese, soft) Back: positive: Nml inspection Skin: positive: No rash, Warm, Dry Extremities: positive: Non-tender, Full ROM, Nml appearance, No pedal edema Neurologic/Psychiatric: positive: Oriented x3, CN's nml (2-12), Motor nml, Sensation nml, Depressed mood/affect Reflexes: Bicep (R): 3+, Bicep (L): 3+ - Lab Results Fish Bones: 06/11/18 05:52 06/11/18 05:52 Other Labs: Lab Results x24hrs 06/10/18 06/10/18 06/10/18 Range/Units 16:34 11:30 05:45 WBC (4.8-10.8) x10^3/uL RBC (4.20-5.40) 10^6/uL Hgb (12.0-16.0) g/dL Hct (37.0-47.0) % MCV (81.0-99.0) fL MCH (27.0-31.0) pg MCHC (32.0-36.0) g/dL RDW (12.0-15.0) % Plt Count (130-450) 10^3/uL MPV (7.9-10.8) fL Neut # (Auto) (1.5-6.6) 10^3/uL Lymph # (Auto) (1.5-3.5) 10^3/uL Runnels # (Auto) (0.0-1.0) 10^3/uL Eos # (Auto) (0.0-0.7) 10^3/uL Baso # (Auto) (0.0-0.1) 10^3/uL Absolute Nucleated RBC x10^3/uL Nucleated RBC % /100WBC Sodium (135-145) mmol/L Potassium (3.5-5.0) mmol/L Chloride (101-111) mmol/L Carbon Dioxide (21-32) mmol/L Anion Gap (6-13) BUN (6-20) mg/dL Creatinine (0.4-1.0) mg/dL Estimated GFR (MDRD) (>89) Glucose (70-100) mg/dL POC Whole Bld Glucose 142 H 188 H (70 - 100) mg/dL Calcium (8.5-10.3) mg/dL Total Bilirubin (0.2-1.0) mg/dL AST (10-42) IU/L ALT (10-60) IU/L Alkaline Phosphatase (42-121) IU/L B-Natriuretic Peptide 261 H (5-100) pg/mL Total Protein (6.7-8.2) g/dL Albumin (3.2-5.5) g/dL Globulin (2.1-4.2) g/dL Albumin/Globulin Ratio (1.0-2.2) Triglycerides ( - 149) mg/dL Cholesterol ( - 199) mg/dL LDL Cholesterol, Calc ( - 129) mg/dL VLDL Cholesterol mg/dL HDL Cholesterol (60 - ) mg/dL LDL/HDL Ratio (<4.4) Cholesterol/HDL Ratio (<4.4) Amylase (28-100) U/L Lipase (22-51) U/L 06/10/18 06/10/18 06/10/18 Range/Units 05:45 05:45 05:45 WBC 11.1 H (4.8-10.8) x10^3/uL RBC 4.82 (4.20-5.40) 10^6/uL Hgb 14.8 (12.0-16.0) g/dL Hct 43.0 (37.0-47.0) % MCV 89.2 (81.0-99.0) fL MCH 30.7 (27.0-31.0) pg MCHC 34.4 (32.0-36.0) g/dL RDW 15.0 (12.0-15.0) % Plt Count 267 (130-450) 10^3/uL MPV 8.3 (7.9-10.8) fL Neut # (Auto) 9.0 H (1.5-6.6) 10^3/uL Lymph # (Auto) 1.3 L (1.5-3.5) 10^3/uL Runnels # (Auto) 0.7 (0.0-1.0) 10^3/uL Eos # (Auto) 0.0 (0.0-0.7) 10^3/uL Baso # (Auto) 0.1 (0.0-0.1) 10^3/uL Absolute Nucleated RBC 0.00 x10^3/uL Nucleated RBC % 0.0 /100WBC Sodium 133 L (135-145) mmol/L Potassium 3.3 L (3.5-5.0) mmol/L Chloride 101 (101-111) mmol/L Carbon Dioxide 22 (21-32) mmol/L Anion Gap 10.0 (6-13) BUN 15 (6-20) mg/dL Creatinine 0.9 (0.4-1.0) mg/dL Estimated GFR (MDRD) 63 L (>89) Glucose 168 H (70-100) mg/dL POC Whole Bld Glucose (70 - 100) mg/dL Calcium 9.0 (8.5-10.3) mg/dL Total Bilirubin 1.1 H (0.2-1.0) mg/dL AST 17 (10-42) IU/L ALT 14 (10-60) IU/L Alkaline Phosphatase 54 (42-121) IU/L B-Natriuretic Peptide (5-100) pg/mL Total Protein 6.8 (6.7-8.2) g/dL Albumin 4.1 (3.2-5.5) g/dL Globulin 2.7 (2.1-4.2) g/dL Albumin/Globulin Ratio 1.5 (1.0-2.2) Triglycerides 142 ( - 149) mg/dL Cholesterol 162 ( - 199) mg/dL LDL Cholesterol, Calc 89 ( - 129) mg/dL VLDL Cholesterol 28 mg/dL HDL Cholesterol 45 L (60 - ) mg/dL LDL/HDL Ratio 2.0 (<4.4) Cholesterol/HDL Ratio 3.6 (<4.4) Amylase 107 H (28-100) U/L Lipase 52 H (22-51) U/L 06/10/18 06/09/18 06/09/18 Range/Units 05:37 23:48 20:45 WBC (4.8-10.8) x10^3/uL RBC (4.20-5.40) 10^6/uL Hgb (12.0-16.0) g/dL Hct (37.0-47.0) % MCV (81.0-99.0) fL MCH (27.0-31.0) pg MCHC (32.0-36.0) g/dL RDW (12.0-15.0) % Plt Count (130-450) 10^3/uL MPV (7.9-10.8) fL Neut # (Auto) (1.5-6.6) 10^3/uL Lymph # (Auto) (1.5-3.5) 10^3/uL Runnels # (Auto) (0.0-1.0) 10^3/uL Eos # (Auto) (0.0-0.7) 10^3/uL Baso # (Auto) (0.0-0.1) 10^3/uL Absolute Nucleated RBC x10^3/uL Nucleated RBC % /100WBC Sodium (135-145) mmol/L Potassium (3.5-5.0) mmol/L Chloride (101-111) mmol/L Carbon Dioxide (21-32) mmol/L Anion Gap (6-13) BUN (6-20) mg/dL Creatinine (0.4-1.0) mg/dL Estimated GFR (MDRD) (>89) Glucose (70-100) mg/dL POC Whole Bld Glucose 192 H 167 H 118 H (70 - 100) mg/dL Calcium (8.5-10.3) mg/dL Total Bilirubin (0.2-1.0) mg/dL AST (10-42) IU/L ALT (10-60) IU/L Alkaline Phosphatase (42-121) IU/L B-Natriuretic Peptide (5-100) pg/mL Total Protein (6.7-8.2) g/dL Albumin (3.2-5.5) g/dL Globulin (2.1-4.2) g/dL Albumin/Globulin Ratio (1.0-2.2) Triglycerides ( - 149) mg/dL Cholesterol ( - 199) mg/dL LDL Cholesterol, Calc ( - 129) mg/dL VLDL Cholesterol mg/dL HDL Cholesterol (60 - ) mg/dL LDL/HDL Ratio (<4.4) Cholesterol/HDL Ratio (<4.4) Amylase (28-100) U/L Lipase (22-51) U/L ABX Reporting Has patient been on IV antibiotics over the past 48 hours?: No Assessment/Plan - Problem List (1) Recurrent Clostridium difficile diarrhea Impression: The patient was last admitted on 04/24/18, for a similar episode of C-diff. She was on a prolonged taper of oral Vanco that just finished 48 hours prior to this admission. She very quickly started to have N/V/D, without blood. She was started on IV Flagyl, high dose oral vanco at 500 mg PO QID, a probiotic, IV reglan, and TUMS as requested. Today, she is showing signs of acute pancreatitis based on pancreatic enzymes, so IV flagyl and vanco was replaced with Fidaxomicin, which is recommended for severe CDI. The goal is to treat this severe CDI, so a more aggressive treatment is necessary to stabilize her, then after this treatment, she will need a fecal transplant to be completed off the badger. The patient's appetite continues to be poor and she has intermittent nausea. She denies any further episodes of vomiting. She is having less frequent stools, but they are still "runny". On 06/09/18 I pre-sent Fidaxomicin to both [facility] and to the [facility] pharmacy to prepare for discharge. I spoke with [facility], who requires a minimum quantity of #20 tablets, and the co-pay would be estimated around $ 1000 for the patient. Since the patient's symptoms were not vastly improved, she will be staying another night and we will attempt to contact the [facility] pharmacy to make arrangements. Plan: Contact precautions, continue treatment, and recommend prompt GI follow up after this hospital stay. (2) Pancreatitis, acute Impression: The patient suffered from acute pancreatitis, and imaging showed no evidence of pancreatic abnormalities. The patient has known chronic gall stones which remain as per US. Amylase improved at 107, lipase was 52 today. Triglycerides and a lipid panel were not significant. Plan: continue pain control. Continue to trend daily enzymes; amylase, lipase. Qualifiers: Pancreatitis type: idiopathic (3) Nausea vomiting and diarrhea Impression: The patient has been having nausea, vomiting, and diarrhea and these were the primary complaints upon admission. These symptoms are likely a result of her recurrent c-diff colitis. She has advanced her diet, and we are encouraging protein shakes between meals, which she is tolerating. She denies skin break down surrounding her anus, although was incontinent during this exam of stool. Plan: Continue to treat with zofran, scheduled Reglan, TUMS per her request. (4) IRINA (acute kidney injury) Impression: The patient is found to have decreased kidney function with an elevated creatinine of 1.6, and a reduced GFR of 32 at the time of admission. This improved today with a creatinine of 0.9, and a nearly normal GFR of 63. She has a baseline creatinine of 0.8, and a typical GFR in the 60's. Since the kidney function has improved, an abdominal/pelvis CT was ordered with contrast. Plan: Continue to monitor daily labs, and encourage continued PO intake. 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 She did not fracture any thing, but since that time has had at least 3 spinal surgeries. She continues to have chronic, daily , unrelenting low back pain for which she sees a pain clinic and is prescribed a duragesic fentanyl patch and ora oxycodone. These are continued while in the hospital, with tylenol if needed. Plan: Continue to monitor. Qualifiers: Back pain location: low back pain Back pain laterality: bilateral Sciatica presence: unspecified whether sciatica present Qualified Code(s): M54.5 - Low back pain; G89.29 - Other chronic pain; G89.29 - Other chronic pain (6) DM2 (diabetes mellitus, type 2) Impression: The patient has been controlled on oral meds at home using glipizide, which has been placed on hold today in light of the acute pancreatitis. We will also do AC/HS blood glucose monitoring and a carb controlled diet once she is tolerating PO. Her current HgA1C today was 6.5%. Plan: Continue Lantus at HS, SSI, and monitor BSs. (7) Hypertension Impression: The patient is prescribed an ARB, and coreg at home for her HTN. Her blood pressure has been elevated, and she has been prescribed IV hydralazine, and IV metoprolol as her GI absorption is reduced. An echocardiogram was obtained and preliminary results show LV hypertrophy; and was ordered for her ongoing uncontrolled HTN, and a murmur heard on exam. The patient will continue on Telmisartan at 1/2 the dose, Hydralazine at home, and her usual Coreg at at least double her previous dose. Plan: Continue to monitor vital signs, telemetry. Qualifiers: Hypertension type: essential hypertension Qualified Code(s): I10 - Essential (primary) hypertension
[2018-06-10] MEDS: CALCIUM CARBONATE CHEW 500 MG TABLET PO PRN (19:31)
[2018-06-10] MEDS: INSULIN GLARGINE 300 UNIT/3 ML PEN SUBQ SCH (20:59)
[2018-06-10] MEDS: CARVEDILOL 12.5 MG TABLET PO SCH (21:01)
[2018-06-10] MEDS: ZOLPIDEM 5 MG TABLET PO SCH (22:14)
[2018-06-11] MEDS: SODIUM CHLORIDE FLUSH 0.9% 10 ML SYRINGE IVP SCH ×2 (00:21→08:17)
[2018-06-11] MEDS: GI COCKTAIL 120 ML BOTTLE PO SCH (03:51)
[2018-06-11 06:06] LABS: BASOPHILS # (AUTO) 0.1 10^3/uL (0.0-0.1); BASOPHILS % (AUTO) 0.7 %; EOSINOPHILS % (AUTO) 0.4 %; HGB - HEMOGLOBIN 14.6 g/dL (12.0-16.0); LYMPHOCYTES # (AUTO) 1.8 10^3/uL (1.5-3.5); LYMPHOCYTES % (AUTO) 17.5 %; MEAN CORPUSCULAR HEMOGLOBIN 30.4 pg (27.0-31.0); MEAN CORPUSCULAR VOLUME 89.4 fL (81.0-99.0); MEAN PLATELET VOLUME 8.1 fL (7.9-10.8); MONOCYTES # (AUTO) 0.7 10^3/uL (0.0-1.0); MONOCYTES % (AUTO) 6.6 %; NEUTROPHILS # (AUTO) 7.7 10^3/uL (1.5-6.6); NEUTROPHILS % (AUTO) 74.8 %; PLT - PLATELET COUNT 263 10^3/uL (130-450); RED BLOOD COUNT 4.82 10^6/uL (4.20-5.40); RED CELL DISTRIBUTION WIDTH 14.7 % (12.0-15.0); WHITE BLOOD COUNT 10.3 x10^3/uL (4.8-10.8)
[2018-06-11 06:19] LABS: ALBUMIN 3.9 g/dL (3.2-5.5); ALBUMIN/GLOBULIN RATIO 1.6 (1.0-2.2); BILIRUBIN,TOTAL 0.9 mg/dL (0.2-1.0); CALCIUM 8.9 mg/dL (8.5-10.3); CREATININE 0.8 mg/dL (0.4-1.0); TOTAL PROTEIN 6.4 g/dL (6.7-8.2)
[2018-06-11] MEDS: METOCLOPRAMIDE 10 MG TABLET PO SCH (08:17)
[2018-06-11] MEDS: hydrALAZINE 25 MG TABLET PO SCH (08:17)
[2018-06-11] MEDS: CARVEDILOL 12.5 MG TABLET PO SCH (08:17)
[2018-06-11] MEDS: SACCHAROMYCES BOULARDII 250 MG CAPSULE PO SCH (08:17)
[2018-06-11] MEDS: FIDAXOMICIN 200 MG TABLET PO SCH (08:17)
[2018-06-11] MEDS: POLYETHYLENE GLYCOL 3350 17 GM PACKET PO SCH (08:17)
--- NOTE | 2018-06-11 08:19 | DISCHARGE SUMMARY ---
Discharge Summary Admit Date: 06/08/18 Discharge Date: 06/11/18 Discharging Provider: FERNANDO Nicole Primary Care Provider: Luis Blanc Code Status: Attempt Resuscitation Condition at Discharge: Good Discharge Disposition: 01 Home, Self Care - DIAGNOSES Admission Diagnoses: Enterocolitis due to Clostridium difficile, recurrent (A04.71) Nausea with vomiting, unspecified (R11.2) Acute kidney failure, unspecified (N17.9) Dorsalgia, unspecified (M54.9) Type 2 diabetes mellitus without complications (E11.9) Essential (primary) hypertension (I10 Discharge Diagnoses with Status of Each Condition: Recurrent Clostridium difficile diarrhea (A04.71) stable, treatment to continue. Pancreatitis, acute (K85.90) resolved. Nausea vomiting and diarrhea (R11.2) improved, nearly resolved. IRINA (acute kidney injury) (N17.9) resolved. Chronic back pain (M54.9) chronic, stable. DM2 (diabetes mellitus, type 2) (E11.9) chronic, stable. Hypertension (I10) chronic, a few medication changes. - HPI History of Present Illness: Nataliya Simmons is an ill appearing 64-year old female with a past medical history of hypertension, hyperlipidemia, asthma, DM type 2, GERD, gastric ulcers , hiatal hernia, recurrent c-diff, diverticulitis, anxiety disorder, osteoarthritis, fibromyalgia, chronic back pain, status post laminectomy, and status post radical neck surgery. The patient was last admitted on 04/24/18 ~7 weeks ago for the same illness. She has just finished the oral vancomycin taper at home 2 days ago. She admits to developing nausea, vomiting, and diarrhea over 24 hours ago, so her , Steve drove her to our ED. She states that she nearly received a fecal transplant, but this procedure was aborted due to hypotension. The patient's states that during her illness, she becomes very hungry, but when she no longer has an appetite, she then requires hospitalization. Upon arrival to the ED labs show a marked elevated WBC count of >20, increased creatinine at 1.6, a reduced GFR of 32, anemia with a hemoglobin of 16.5, hematocrit of 49.0, elevated neutrophil count of 17.3, elevated glucose of 249, elevated calcium of 10.4, elevated albumin of 5.6, elevated lipase of 111, a normal lactic acid at 1.3, and urine with high ketones, high glucose of 250, high protein of >300, and culture is indicated and pending. The patient was predicted to be 1.5L dry per US. She was found to have uncontrolled hypertension with an elevated blood pressure of 141/100. Upon exam, the patient's primary complaint was ongoing back pain, nausea, and anorexia. She denies new or concerning symptoms including chest pain, shortness of breath, bleeding, dizziness, or a new cough. She will be admitted to inpatient for further care using IV flagyl, high dose oral vanco, symptom management, close monitoring, and once stabilized, we will recommend prompt follow up with GI for a fecal transplant/colonoscopy. - HOSPITAL COURSE Hospital Course: (1) Recurrent Clostridium difficile diarrhea The patient was last admitted on 04/24/18, for a similar episode of C-diff. She was on a prolonged taper of oral Vanco that just finished 48 hours prior to this admission. She very quickly started to have N/V/D, without blood. She was started on IV Flagyl, high dose oral vanco at 500 mg PO QID, a probiotic, IV reglan, and TUMS as requested. Today, she is showing signs of acute pancreatitis based on pancreatic enzymes, so IV flagyl and vanco was replaced with Fidaxomicin, which is recommended for severe CDI. The goal is to treat this severe CDI, so a more aggressive treatment is necessary to stabilize her, then after this treatment, [place] The patient's appetite continues to be poor and she has intermittent nausea. She denies any further episodes of vomiting. She is having less frequent stools, but they are still "runny". On 06/09/18 I pre-sent Fidaxomicin to both [place] [facility] and to the [facility] pharmacy to prepare for discharge. I spoke with [place] pharmacy, who requires a minimum quantity of #20 tablets, and the co-pay would be estimated around $ 1000 for the patient. Since the patient's symptoms were not vastly improved, so she stayed another night. Contact was made with the [facility] pharmacy to make arrangements, but this medication was not in their formulary, and they were unable to obtain this medication. Attempts were made to see about other pharmacies including [facility] and [facility]-all of which could not be of any assistance as the cost of Fidaxomicin was a barrier. A prescription was sent for Vancomycin 125 mg PO QID to be taken for 7 more days was sent. I personally called the patient with this update. We recommend prompt GI follow up after this hospital stay for the next course of action being a fecal transplant. (2) Pancreatitis, acute The patient suffered from acute pancreatitis, and imaging showed no evidence of pancreatic abnormalities. The patient has known chronic gall stones which remain as per US. Amylase improved at 107, lipase was 52 today. Triglycerides and a lipid panel were not significant. (3) Nausea vomiting and diarrhea The patient has been having nausea, vomiting, and diarrhea and these were the primary complaints upon admission. These symptoms are likely a result of her recurrent c-diff colitis. She has advanced her diet, and we are encouraging protein shakes between meals, which she is tolerating. She denies skin break down surrounding her anus, although was incontinent during this exam of stool. The patient was treated with zofran, scheduled Reglan, TUMS per her request. These symptoms were much improved upon discharge. (4) IRINA (acute kidney injury) The patient is found to have decreased kidney function with an elevated creatinine of 1.6, and a reduced GFR of 32 at the time of admission. This improved today with a creatinine of 0.9, and a nearly normal GFR of 63. She has a baseline creatinine of 0.8, and a typical GFR in the 60's. Since the kidney function has improved, an abdominal/pelvis CT was ordered with contrast. 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 She did not fracture any thing, but since that time has had at least 3 spinal surgeries. She continues to have chronic, daily , unrelenting low back pain for which she sees a pain clinic and is prescribed a duragesic fentanyl patch and ora oxycodone. These are continued while in the hospital, with tylenol if needed. (6) DM2 (diabetes mellitus, type 2) The patient has been controlled on oral meds at home using glipizide, which has been placed on hold today in light of the acute pancreatitis. We will also do AC/HS blood glucose monitoring and a carb controlled diet once she is tolerating PO. Her current HgA1C was 6.5%. Upon discharge, the patient's home meds were resumed. (7) Hypertension The patient is prescribed an ARB, and coreg at home for her HTN. Her blood pressure has been elevated, and she has been prescribed IV hydralazine, and IV metoprolol as her GI absorption is reduced. An echocardiogram was obtained and preliminary results show LV hypertrophy; and was ordered for her ongoing uncontrolled HTN, and a murmur heard on exam. The patient will continue on Telmisartan at 1/2 the dose, Hydralazine at home, and her usual Coreg at at least double her previous dose. Disposition: The patient was very anxious to be on her way, and her , Steve was adding to the anxiety. They were unwilling to wait for pharmacy approval and left just before 9AM. The patient had improved symptoms, tolerated her morning meal, was ambulatory, and did not require oxygen upon discharge. She was taken via wheelchair to their private car home with , Steve. They were agreeable to picking up their prescriptions at [facility] pharmacy, and we are still awaiting approval from [facility] for Fidaxomicin, which was not feasible. A prescription was sent for vancomycin at 125 mg PO QID for the next 7 days. A call was made to update the patient. - ALLERGIES Allergies/Adverse Reactions: Allergies Allergy/AdvReac Type Severity Reaction Status Date / Time hydromorphone HCl * Allergy Unknown UNKNOWN Verified 04/24/18 17:08 [From Dilaudid] duloxetine Allergy Anxiety Verified 04/24/18 17:08 gabapentin Allergy Hallucinati Verified 04/24/18 17:08 ons levofloxacin [From Levaquin] Allergy Hallucinati Verified 04/24/18 17:08 ons morphine AdvReac Emesis Verified 06/08/18 07:49 - MEDICATIONS Home Medications: Ambulatory Orders Medication Instructions Recorded Confirmed Simvastatin 40 mg PO QPM 11/25/15 06/08/18 Ondansetron [Ondansetron Odt] 8 mg PO Q8H PRN 01/12/18 06/08/18 fentaNYL [Fentanyl 12mcg patch] 24 mcg TOP Q72H 01/12/18 06/08/18 glipiZIDE [Glipizide] 5 mg PO 0730 01/12/18 06/08/18 oxyCODONE [Roxicodone] 5 mg PO Q6H PRN #15 tablet 04/28/18 06/08/18 Carvedilol [Coreg] 12.5 mg PO BID #60 tablet 06/11/18 Saccharomyces Boulardii [Florastor] 250 mg PO BID #60 capsule 06/11/18 Telmisartan 20 mg PO DAILY #30 tablet 06/11/18 hydrALAZINE [Apresoline] 25 mg PO TID #90 tablet 06/11/18 Vancomycin [Vancocin] 125 mg PO QID #21 capsule 06/12/18 - PHYSICAL EXAM AT DISCHARGE General Appearance: positive: No acute distress, Alert Eyes Bilateral: positive: Normal inspection, PERRL ENT: positive: ENT inspection nml, Pharynx nml, No signs of dehydration Neck: positive: Nml inspection, Thyroid nml, No JVD, Trachea midline Respiratory: positive: Chest non-tender, No respiratory distress, Breath sounds nml Cardiovascular: positive: Regular rate & rhythm, No gallop, Systolic murmur Peripheral Pulses: positive: 2+ Abdomen: positive: Non-tender, Nml bowel sounds, Other (rounded, soft) Back: positive: Nml inspection Skin: positive: Color nml, No rash, Warm, Dry Extremities: positive: Non-tender, Full ROM, Nml appearance, No pedal edema Neurologic/Psychiatric: positive: Oriented x3, CN's nml (2-12), Motor nml, Sensation nml, Depressed mood/affect Reflexes: Bicep (R): 4+, Bicep (L): 4+ - LABS Result Diagrams: 06/11/18 05:52 06/11/18 05:52 - FOLLOW UP Follow Up: Disposition: 01 Home, Self Care Condition: Good Prescriptions: Carvedilol [Coreg] 12.5 mg PO BID #60 tablet hydrALAZINE [Apresoline] 25 mg PO TID #90 tablet Saccharomyces Boulardii [Florastor] 250 mg PO BID #60 capsule Telmisartan 20 mg PO DAILY #30 tablet Vancomycin [Vancocin] 125 mg PO QID #21 capsule Diet: Diabetic Activity Restrictions: No Restrictions Shower Restrictions: No Driving Restrictions: No Weight Bearing: Full Weight Additional Instructions or Follow Up instructions: After this acute illness, you will need to consider a fecal transplant. One provider that we know of is; Dr. Tamiko Vee who a specialist with a focus on Clostridium difficile infection (CDI) and irritable bowel syndrome. This referral must be made by your PCP. Please finish a full 10-day course of the antibiotic, Fidaxomicin 200 mg by mouth twice daily. You are on day #4. I have sent 11 more doses to [facility], and due to cost, no pharmacy could supply this medication at a somewhat affordable cost. Vancomycin 125 mg PO to be taken 4 times per day for the next 7 days was sent to [facility], and I spoke to you on the phone regarding this. Avoid using TUMS as this may cause additional gall stones. A safe alternative is Zantac, and this is over the counter. You can take as needed, or scheduled twice daily. You had an echocardiogram for high blood pressures and high heart rates. There have been slight changes made to your Coreg, Telmisartan and we added Hydralazine as this combination is ideal based on your heart function. Since you are on 3 agents we recommend that you establish a assistant director of nursing. Please see your PCP within one week. - TIME SPENT Time Spent in Discharge (Minutes): 60
[2018-06-11 08:38] VITALS: BP 136/97
== END 2018-06-11 09:24 | disposition home or self-care (01) | DRG 371 ==
LOC: ED 07:34 → MS2 12:51
PROVIDERS: ADMIT Nurse Practitioner; ATTEND Nurse Practitioner
DX: G43.A1 Cyclical vomiting, in migraine, intractable (principal); F43.20 Adjustment disorder, unspecified; E86.0 Dehydration; R55 Syncope and collapse; A04.71 Enterocolitis due to Clostridium difficile, recurrent; E78.00 Pure hypercholesterolemia, unspecified; K85.90 Acute pancreatitis without necrosis or infection, unspecified; N17.9 Acute kidney failure, unspecified; I10 Essential (primary) hypertension; E78.5 Hyperlipidemia, unspecified; M54.9 Dorsalgia, unspecified; G89.29 Other chronic pain; F17.210 Nicotine dependence, cigarettes, uncomplicated; F12.20 Cannabis dependence, uncomplicated
CPT/HCPCS: 36415; 74177; 76705; 80048; 80053; 80061; 81001; 81003; 82009; 82150; 83036; 83605; 83690; 83721; 83735; 83880; 84443; 84478; 84484; 85025; 85651; 86140; 87086; 93306; 96361; 96374; 96376; 99284

== ENCOUNTER 2018-11-28 13:32 | Emergency (ER) | payer MEDICARE, OTHER ==
[2018-11-28 14:14] LABS: BASOPHILS # (AUTO) 0.1 10^3/uL (0.0-0.1); BASOPHILS % (AUTO) 0.9 %; EOSINOPHILS # (AUTO) 0.1 10^3/uL (0.0-0.7); EOSINOPHILS % (AUTO) 0.6 %; HGB - HEMOGLOBIN 15.6 g/dL (12.0-16.0); LYMPHOCYTES % (AUTO) 17.2 %; MEAN CORPUSCULAR HEMOGLOBIN 29.6 pg (27.0-31.0); MEAN CORPUSCULAR HGB CONC 32.5 g/dL (32.0-36.0); MEAN CORPUSCULAR VOLUME 91.1 fL (81.0-99.0); MEAN PLATELET VOLUME 7.9 fL (7.9-10.8); MONOCYTES # (AUTO) 0.7 10^3/uL (0.0-1.0); MONOCYTES % (AUTO) 6.3 %; NEUTROPHILS # (AUTO) 8.5 10^3/uL (1.5-6.6); PLT - PLATELET COUNT 321 10^3/uL (130-450); RED BLOOD COUNT 5.25 10^6/uL (4.20-5.40); RED CELL DISTRIBUTION WIDTH 13.7 % (12.0-15.0); WHITE BLOOD COUNT 11.3 x10^3/uL (4.8-10.8)
[2018-11-28 14:26] LABS: ALBUMIN 4.6 g/dL (3.2-5.5); ALBUMIN/GLOBULIN RATIO 1.6 (1.0-2.2); BILIRUBIN,TOTAL 1.1 mg/dL (0.2-1.0); CALCIUM 9.8 mg/dL (8.5-10.3); CREATININE 1.5 mg/dL (0.4-1.0); TOTAL PROTEIN 7.5 g/dL (6.7-8.2)
[2018-11-28 16:49] LABS: BILIRUBIN,URINE NEGATIVE (NEGATIVE); GLUCOSE, URINE (UA) NEGATIVE (NEGATIVE); KETONES,URINE (UA) TRACE mg/dL (NEGATIVE); LEUKOCYTE ESTERASE, URINE NEGATIVE (NEGATIVE); NITRITE,URINE NEGATIVE (NEGATIVE); OCCULT BLOOD,URINE TRACE-LYSE (NEGATIVE); PROTEIN,URINE NEGATIVE (NEGATIVE); UROBILINOGEN,URINE 0.2 (NORMAL) E.U./dL (NORMAL)
[2018-11-28 16:50] LABS: CLARITY,URINE CLEAR (CLEAR)
[2018-11-28] MEDS ORDERED: SODIUM CHLORIDE 0.9% 1,000 ML IV ONE (17:31)
--- NOTE | 2018-11-28 17:33 | ED Physician Documentation ---
PD HPI ABD PAIN - Stated complaint Stated Complaint: ABD PX/BACK PX - Chief complaint Chief Complaint: Abd Pain - History obtained from History obtained from: Patient - History of Present Illness Timing - onset: How many weeks ago (1) Timing - duration: Weeks (1) Timing - details: Gradual onset Pain level max: 8 Pain level now: 8 Quality: Aching, Pain Location: All over / everywhere Improved by: Vomiting Worsened by: Eating Associated symptoms: Nausea, Vomiting, Diarrhea, Constipation. No: Fever, Melena, Hematochezia, Dysuria - Additional information Additional information: vomiting and diarrhea for the past week. States similar to past history of diverticulitis. States unable to keep her oxycodone down for the past few days. States constipated today. Brought in sample. Last diarrhea 3 days ago. Review of Systems Ten Systems: 10 systems reviewed and negative Constitutional: denies: Fever, Chills Respiratory: denies: Cough Skin: denies: Rash Musculoskeletal: denies: Neck pain, Back pain Neurologic: denies: Headache PD PAST MEDICAL HISTORY - Past Medical History Cardiovascular: Hypertension, High cholesterol Respiratory: Asthma Neuro: Headaches Endocrine/Autoimmune: Type 2 diabetes GI: GERD, Ulcers, Hiatal hernia, C.difficile, Pancreatitis, Diverticulitis MANUAL TESTER: Other : Frequency HEENT: None Psych: Anxiety Musculoskeletal: Osteoarthritis, Fibromyalgia, Chronic back pain Derm: Other - Past Surgical History Past Surgical History: Yes General: Appendectomy, Bowel surgery, Colonoscopy Ortho: Carpal Tunnel surgery, Spine surgery Neuro: Radical neck - Present Medications Home Medications: Ambulatory Orders Medication Instructions Recorded Confirmed Simvastatin 40 mg PO QPM 11/25/15 11/28/18 Ondansetron [Ondansetron Odt] 8 mg PO Q8H PRN 01/12/18 11/28/18 glipiZIDE [Glipizide] 5 mg PO 0730 01/12/18 11/28/18 hydrALAZINE [Apresoline] 25 mg PO TID #90 tablet 06/11/18 11/28/18 oxyCODONE [Roxicodone] 5 mg PO Q6H 10/08/18 11/28/18 Aspirin [Aspirin EC] 1 tab PO DAILY 11/28/18 11/28/18 Ondansetron Odt [Zofran] 4 mg TL Q6H PRN #10 tablet 11/28/18 Pantoprazole Sodium [Protonix] 20 mg PO DAILY #14 tablet.dr 11/28/18 Polyethylene Glycol 3350 [Miralax] 1 packet PO DAILY PRN 11/28/18 11/28/18 Telmisartan [Micardis] 1 tab PO DAILY 11/28/18 11/28/18 - Allergies Allergies/Adverse Reactions: Allergies Allergy/AdvReac Type Severity Reaction Status Date / Time duloxetine AdvReac Anxiety Verified 10/08/18 10:00 gabapentin AdvReac Hallucinati Verified 10/08/18 10:00 ons levofloxacin [From Levaquin] AdvReac Hallucinati Verified 10/08/18 10:00 ons pregabalin [From Lyrica] AdvReac Unknown Verified 11/28/18 13:46 - Social History Does the pt smoke?: Yes Smoking Status: Current every day smoker Does the pt drink ETOH?: No Does the pt have substance abuse?: No - Immunizations Immunizations are current?: Yes - POLST Patient has POLST: No POLST Status: Full Code PD ED PE NORMAL - General General: Alert and oriented X 3, No acute distress - HEENT HEENT: Moist mucous membranes - Neck Neck: Supple, no meningeal sign - Cardiac Cardiac: RRR - Respiratory Respiratory: No respiratory distress, Clear bilaterally - Abdomen Abdomen: Soft, Non distended, Other (LLQ TTP without peritoneal signs. ) - Back Back: No spinal TTP - Derm Derm: Warm and dry - Extremities Extremities: No edema - Neuro Neuro: Alert and oriented X 3 Results - Vitals Vitals: Vital Signs - 24 hr 11/28/18 11/28/18 11/28/18 13:44 16:48 18:37 Temperature 37.1 C 36.5 C Heart Rate 102 H 89 78 Respiratory 17 17 18 Rate Blood Pressure 116/89 H 166/102 H 145/87 H O2 Saturation 97 100 99 11/28/18 19:18 Temperature 36.5 C Heart Rate 86 Respiratory 14 Rate Blood Pressure 122/79 O2 Saturation 98 Oxygen O2 Source Room air - Labs Labs: Laboratory Tests 11/28/18 11/28/18 11/28/18 14:08 14:08 16:27 WBC 11.3 H RBC 5.25 Hgb 15.6 Hct 47.8 H MCV 91.1 MCH 29.6 MCHC 32.5 RDW 13.7 Plt Count 321 MPV 7.9 Neut # (Auto) 8.5 H Lymph # (Auto) 2.0 [place] # (Auto) 0.7 Eos # (Auto) 0.1 Baso # (Auto) 0.1 Absolute Nucleated RBC 0.02 Nucleated RBC % 0.2 Sodium 130 L Potassium 3.7 Chloride 90 L Carbon Dioxide 29 Anion Gap 11.0 BUN 35 H Creatinine 1.5 H Estimated GFR (MDRD) 35 L Glucose 172 H Calcium 9.8 Total Bilirubin 1.1 H AST 18 ALT 17 Alkaline Phosphatase 61 Total Protein 7.5 Albumin 4.6 Globulin 2.9 Albumin/Globulin Ratio 1.6 Lipase 60 H Urine Color YELLOW Urine Clarity CLEAR Urine pH 6.0 Ur Specific [place] 1.020 Urine Protein NEGATIVE Urine Glucose (UA) NEGATIVE Urine Ketones TRACE Urine Occult Blood TRACE-LYSE Urine Nitrite NEGATIVE Urine Bilirubin NEGATIVE Urine Urobilinogen 0.2 (NORMAL) Ur Leukocyte Esterase NEGATIVE Ur Microscopic Review NOT INDICATED Urine Culture Comments NOT INDICATED - Rads (name of study) Abd/pelvis CT. Radiology: Prelim report reviewed, EMP read contemporaneously, See rad report (Punctate bilateral kidney stones of approximately 1 mm. No ureter stone or hydronephrosis. 2. Moderate colonic diverticulosis. 3. Fat-containing umbilical hernia with hernia neck measuring 15 mm in diameter. 4. Steatosis of the liver. ) PD MEDICAL DECISION MAKING - ED course Complexity details: reviewed results, re-evaluated patient, considered differential, d/w patient ED course: 63-year-old female with vomiting abdominal pain. Unclear etiology. She is being worked up for possible ulcer. Given Protonix IV. Also given a dose of Dilaudid and Zofran. Feels better after IV fluids. Tolerating p.o. without difficulty and pain greatly improved. No acute findings on CT scan. Patient counseled regarding signs and symptoms for which I believe and urgent re- evaluation would be necessary. Patient with good understanding of and agreement to plan and is comfortable going home at this time This document was made in part using voice recognition software. While efforts are made to proofread this document, sound alike and grammatical errors may occur. Departure - Departure Disposition: 01 Home, Self Care Clinical Impression: Abdominal pain Qualifiers: Abdominal location: generalized Qualified Code(s): R10.84 - Generalized abdominal pain Condition: Good Instructions: ED Abdominal Pain Unkn Cause Follow-Up: Dwain Deluna MD [Primary Care Provider] - Within 3 Days Prescriptions: Ondansetron Odt [Zofran] 4 mg TL Q6H PRN #10 tablet PRN Reason: Nausea / Vomiting Pantoprazole Sodium [Protonix] 20 mg PO DAILY #14 tablet. Comments: Drink plenty of fluids and rest. Return if you worsen. Your CT scan does not show any acute abnormalities tonight. Follow-up with your doctor closely for further care Discharge Date/Time: 11/28/18 19:23
[2018-11-28] MEDS ORDERED: HYDROmorphone 1 MG/ML CARPUJECT IVP STA (17:36)
[2018-11-28] MEDS ORDERED: ONDANSETRON 4 MG/2 ML VIAL IVP STA (17:36)
--- NOTE | 2018-11-28 18:43 | CT Report ---
Reason: LLQ abd pain, Procedure Date: 11/28/2018 Accession Number: [id number] / [id number] Procedure: CT - Abdomen/Pelvis W/O CPT Code: FULL RESULT: EXAM: CT ABDOMEN AND PELVIS (CT KUB) EXAM DATE: 11/28/2018 06:27 PM. CLINICAL HISTORY: LLQ abd pain. COMPARISONS: ABDOMEN/PELVIS W/ 02/27/2018 2:13 PM. TECHNIQUE: Routine axial helical CT imaging was performed through the abdomen and pelvis without IV contrast. Reconstructions: Coronal and sagittal. In accordance with CT protocol optimization, one or more of the following dose reduction techniques were utilized for this exam: automated exposure control, adjustment of mA and/or KV based on patient size, or use of iterative reconstructive technique. FINDINGS: Lung Bases: Unremarkable. Right Kidney/Ureter: There are 2 tiny stones in the right kidney measuring approximately 1 mm in diameter. There is a small cortical cyst in the upper pole measuring 9 mm. No ureter stone or hydronephrosis. Left Kidney/Ureter: There are punctate left kidney stones of approximately 1 mm. No ureter stone or hydronephrosis. There is a 19 mm exophytic cortical cyst. Other Solid Organs: The liver parenchyma measures low in density consistent with steatosis. The liver appears mildly enlarged and measures 185 mm craniocaudal. Gallbladder/Bile Ducts: Gallbladder is surgically absent. Peritoneal Cavity: There is a fat-containing umbilical hernia. The hernia neck measures 15 mm in diameter. There are a moderate number of diverticula within the colon. Pelvic Organs: Uterus is anteverted. Urinary bladder appears unremarkable. Ovaries appear normal in size. Vasculature: Unremarkable. Other: There is multilevel degenerative disease of the lumbar spine. There is posterior spine fusion from L2 sacrum with laminectomy. IMPRESSION: 1. Punctate bilateral kidney stones of approximately 1 mm. No ureter stone or hydronephrosis. 2. Moderate colonic diverticulosis. 3. Fat-containing umbilical hernia with hernia neck measuring 15 mm in diameter. 4. Steatosis of the liver. RADIA
[2018-11-28] MEDS ORDERED: PANTOPRAZOLE 40 MG VIAL IVP STA (18:59)
[2018-11-28 19:19] VITALS: BP 122/79
== END 2018-11-28 19:23 | disposition home or self-care (01) ==
LOC: ED 13:32
DX: R10.84 Generalized abdominal pain (principal); R11.10 Vomiting, unspecified; I10 Essential (primary) hypertension; E78.00 Pure hypercholesterolemia, unspecified; E11.9 Type 2 diabetes mellitus without complications; Z79.4 Long term (current) use of insulin; F17.200 Nicotine dependence, unspecified, uncomplicated
CPT/HCPCS: 36415; 74176; 80053; 81003; 83690; 85025; 96361; 96374; 96375; 99283; J1170; 81001; 87086

== ENCOUNTER 2019-06-12 13:08 | Emergency (ER) | payer MEDICARE, OTHER ==
--- NOTE | 2019-06-12 13:30 | ED Physician Documentation ---
PD HPI NVD - Stated complaint Stated Complaint: VOMITING - History obtained from History obtained from: Patient - History of Present Illness Timing - onset: How many days ago (6) Timing - duration: Days (6) Timing - details: Abrupt onset (She states she had onset of nausea and vomiting with some loose stool 6 days ago. She is continued with abdominal bloating, nausea, vomiting. She is still having some urine output so presumably keeping some fluids down. She feels that she is vomiting most everything. She has not been able to keep her medications down and so is having worsened back pain over baseline she feels lacking her usual medications. She had not run out of her medicines. She denies any fever or chills.), Still present Associated symptoms: Abdominal pain, Loss of appetite. No: Fever, Near syncope / syncope Contributing factors: No: Sick contact, Bad food, Travel, Recent antibiotics Improved by: No: Vomiting, Position Worsened by: Eating, Palpation. No: Breathing Similar symptoms before: Other (She had her gallbladder out about a year ago and had pancreatitis related to it. She had had pain similar to this at that time. She has had diverticulitis in the past. She denies any prior bowel obstructions. She has the chronic back pain this is hurting in the usual locations but worse than usual because of not having medication.) Recently seen: Not recently seen Review of Systems Constitutional: reports: Fatigue. denies: Fever, Chills Nose: denies: Rhinorrhea / runny nose, Congestion Throat: denies: Sore throat Cardiac: denies: Chest pain / pressure, Palpitations Respiratory: denies: Cough GI: reports: Abdominal Pain, Nausea, Vomiting. denies: Diarrhea (loose but not diarrheal), Hematemesis, Bloody / black stool : denies: Dysuria, Frequency Musculoskeletal: reports: Back pain (chronic low back, takes oxycodone 10 mg TID for the past 3 weeks; was 5 mg QID.). denies: Neck pain Neurologic: reports: Generalized weakness. denies: Focal weakness, Numbness, Altered mental status, Headache PD PAST MEDICAL HISTORY - Past Medical History Cardiovascular: Hypertension, High cholesterol Respiratory: Asthma Neuro: Headaches Endocrine/Autoimmune: Type 2 diabetes GI: GERD, Ulcers, Hiatal hernia, C.difficile, Pancreatitis, Diverticulitis RN MANAGED CARE: Other : Frequency HEENT: None Psych: Anxiety Musculoskeletal: Osteoarthritis, Fibromyalgia, Chronic back pain Derm: Other - Past Surgical History Past Surgical History: Yes General: Appendectomy, Bowel surgery, Colonoscopy Ortho: Carpal Tunnel surgery, Spine surgery Neuro: Radical neck - Present Medications Home Medications: Ambulatory Orders Medication Instructions Recorded Confirmed RX: Simvastatin 40 mg PO QPM 11/25/15 11/28/18 RX: Ondansetron [Ondansetron Odt] 8 mg PO Q8H PRN 01/12/18 11/28/18 RX: glipiZIDE [Glipizide] 5 mg PO 0730 01/12/18 11/28/18 RX: hydrALAZINE [Apresoline] 25 mg PO TID #90 tablet 06/11/18 11/28/18 RX: oxyCODONE [Roxicodone] 5 mg PO Q6H 10/08/18 11/28/18 Aspirin [Aspirin EC] 1 tab PO DAILY 11/28/18 11/28/18 Ondansetron Odt [Zofran] 4 mg TL Q6H PRN #10 tablet 11/28/18 Pantoprazole Sodium [Protonix] 20 mg PO DAILY #14 tablet.dr 11/28/18 Polyethylene Glycol 3350 [Miralax] 1 packet PO DAILY PRN 11/28/18 11/28/18 Telmisartan [Micardis] 1 tab PO DAILY 11/28/18 11/28/18 Promethazine [Phenergan] 25 mg PO Q6H PRN #30 tab 06/12/19 RX: Famotidine 20 mg PO DAILY #30 tablet 06/12/19 - Allergies Allergies/Adverse Reactions: Allergies Allergy/AdvReac Type Severity Reaction Status Date / Time duloxetine AdvReac Anxiety Verified 06/12/19 13:33 gabapentin AdvReac Hallucinati Verified 06/12/19 13:33 ons levofloxacin [From Levaquin] AdvReac Hallucinati Verified 06/12/19 13:33 ons pregabalin [From Lyrica] AdvReac Unknown Verified 06/12/19 13:33 - Social History Does the pt smoke?: Yes Smoking Status: Current every day smoker Does the pt drink ETOH?: No Does the pt have substance abuse?: No - Immunizations Immunizations are current?: Yes - POLST Patient has POLST: No POLST Status: Full Code PD ED PE NORMAL - Vitals Vital signs reviewed: Yes - General General: Alert and oriented X 3, Well developed/nourished, Other (appears in considerable pain due to abd and also exac low back pain) - HEENT HEENT: PERRL, Pharynx benign. No: Moist mucous membranes - Neck Neck: Supple, no meningeal sign, No adenopathy - Cardiac Cardiac: RRR, No murmur - Respiratory Respiratory: Clear bilaterally - Abdomen Abdomen: Soft, No organomegaly, Other (Diffusely distended with tenderness mostly central abdomen and epigastric area. Bowel sounds are hypoactive. There is mild tympany to percussion. There is no CVA tenderness. The back does not have any rash nor sores.). No: Normal bowel sounds (diminished) - Female Female : Deferred - Rectal Rectal: Deferred - Back Back: No CVA TTP - Derm Derm: Normal color, Warm and dry, No rash - Extremities Extremities: No tenderness to palpate, Normal ROM s pain, No edema, No calf tenderness / cord - Neuro Neuro: Alert and oriented X 3, No motor deficit, Normal speech Results - Vitals Vitals: Vital Signs - 24 hr 06/12/19 06/12/19 06/12/19 13:13 13:33 15:42 Temperature 36.8 C 36.7 C Heart Rate 98 98 89 Respiratory 18 18 20 Rate Blood Pressure 147/108 H 147/108 H 162/93 H O2 Saturation 99 99 97 06/12/19 17:00 Temperature Heart Rate 88 Respiratory 16 Rate Blood Pressure 134/90 H O2 Saturation 100 Oxygen O2 Source Room air - Labs Labs: Laboratory Tests 06/12/19 06/12/19 06/12/19 14:13 14:13 14:13 WBC 10.4 RBC 4.91 Hgb 15.1 Hct 45.4 MCV 92.5 MCH 30.8 MCHC 33.3 RDW 13.5 Plt Count 288 MPV 9.9 Neut # (Auto) 8.2 H Lymph # (Auto) 1.4 L [place] # (Auto) 0.7 Eos # (Auto) 0.1 Baso # (Auto) 0.0 Absolute Nucleated RBC 0.00 Nucleated RBC % 0.0 Sodium 134 L Potassium 4.1 Chloride 96 L Carbon Dioxide 26 Anion Gap 12.0 BUN 22 H Creatinine 1.2 H Estimated GFR (MDRD) 45 L Glucose 178 H Lactic Acid 1.9 Calcium 9.8 Magnesium 2.0 Total Bilirubin 0.7 AST 17 ALT 16 Alkaline Phosphatase 56 Total Protein 7.7 Albumin 4.5 Globulin 3.2 Albumin/Globulin Ratio 1.4 Lipase 125 H Urine Color Urine Clarity Urine pH Ur Specific [place] Urine Protein Urine Glucose (UA) Urine Ketones Urine Occult Blood Urine Nitrite Urine Bilirubin Urine Urobilinogen Ur Leukocyte Esterase Ur Microscopic Review Urine Culture Comments 06/12/19 16:00 WBC RBC Hgb Hct MCV MCH MCHC RDW Plt Count MPV Neut # (Auto) Lymph # (Auto) [place] # (Auto) Eos # (Auto) Baso # (Auto) Absolute Nucleated RBC Nucleated RBC % Sodium Potassium Chloride Carbon Dioxide Anion Gap BUN Creatinine Estimated GFR (MDRD) Glucose Lactic Acid Calcium Magnesium Total Bilirubin AST ALT Alkaline Phosphatase Total Protein Albumin Globulin Albumin/Globulin Ratio Lipase Urine Color YELLOW Urine Clarity CLEAR Urine pH 5.0 Ur Specific [place] 1.010 Urine Protein NEGATIVE Urine Glucose (UA) NEGATIVE Urine Ketones NEGATIVE Urine Occult Blood TRACE-[place]TA Urine Nitrite NEGATIVE Urine Bilirubin NEGATIVE Urine Urobilinogen 0.2 (NORMAL) Ur Leukocyte Esterase NEGATIVE Ur Microscopic Review NOT INDICATED Urine Culture Comments NOT INDICATED - Rads (name of study) abd/pelvic CT Radiology: Prelim report reviewed (no acute abnormality), See rad report PD MEDICAL DECISION MAKING - ED course Complexity details: reviewed results, re-evaluated patient (She is improved with a couple of rounds of pain and nausea medicines. She is able to take fluids orally and keep them down. There is no signs of obstruction or pancreatitis or acute process otherwise. Presume she may have started with a viral type illness or just gastritis and that perpetuated along with some narcotic withdrawal symptoms. She seems stable for discharge at this time.), considered differential (Clinically consider bowel obstruction. Also may be consistent with diverticulitis with perforation or pancreatitis. Will get labs as well as lactate and CT scan. We will give her some IV fluids and nausea medicines and pain medicine. She has been without her usual pain medicines will be had a slight element of narcotic withdrawal to but that would not account for the initial process causing the vomiting in the first place. We will give her pain medicines to improve and she will likely take a little higher dose of medicine given her tolerance from the treatment of the chronic back pain.), d/w patient Departure - Departure Disposition: 01 Home, Self Care Clinical Impression: Nausea and vomiting, Gastritis, Dehydration Condition: Stable Record reviewed to determine appropriate education?: Yes Instructions: ED Nausea Vomiting Prescriptions: RX: Famotidine 20 mg PO DAILY #30 tablet Promethazine [Phenergan] 25 mg PO Q6H PRN #30 tab PRN Reason: Nausea / Vomiting Comments: Frequent fluids this evening tomorrow with bland food initially and progress to normal diet as able. Continue usual pain medicines and other medicines. Add promethazine if needed for nausea. Famotidine acid reducing medicine daily for a month. Follow-up with your primary care regarding ongoing pain medicines. Discharge Date/Time: 06/12/19 17:27
[2019-06-12] MEDS ORDERED: ONDANSETRON 4 MG/2 ML VIAL IVP STA (13:54)
[2019-06-12] MEDS ORDERED: HYDROmorphone 1 MG/ML CARPUJECT IVP STA ×3 (13:54→16:16)
[2019-06-12] MEDS ORDERED: SODIUM CHLORIDE 0.9% 1,000 ML IV ONE ×3 (13:54→15:24)
[2019-06-12] MEDS ORDERED: FAMOTIDINE 20 MG/2 ML VIAL IVP STA (13:56)
[2019-06-12 14:21] LABS: BASOPHILS % (AUTO) 0.4 %; EOSINOPHILS # (AUTO) 0.1 10^3/uL (0.0-0.7); EOSINOPHILS % (AUTO) 0.6 %; HGB - HEMOGLOBIN 15.1 g/dL (12.0-16.0); LYMPHOCYTES # (AUTO) 1.4 10^3/uL (1.5-3.5); MEAN CORPUSCULAR HEMOGLOBIN 30.8 pg (27.0-31.0); MEAN CORPUSCULAR HGB CONC 33.3 g/dL (32.0-36.0); MEAN CORPUSCULAR VOLUME 92.5 fL (81.0-99.0); MEAN PLATELET VOLUME 9.9 fL (7.9-10.8); MONOCYTES # (AUTO) 0.7 10^3/uL (0.0-1.0); MONOCYTES % (AUTO) 6.7 %; NEUTROPHILS # (AUTO) 8.2 10^3/uL (1.5-6.6); NEUTROPHILS % (AUTO) 78.8 %; PLT - PLATELET COUNT 288 10^3/uL (130-450); RED BLOOD COUNT 4.91 10^6/uL (4.20-5.40); RED CELL DISTRIBUTION WIDTH 13.5 % (12.0-15.0); WHITE BLOOD COUNT 10.4 x10^3/uL (4.8-10.8)
[2019-06-12] MEDS ORDERED: IOVERSOL 320 100 ML VIAL IVP ONE ×2 (14:22→16:25)
[2019-06-12 14:36] LABS: ALBUMIN 4.5 g/dL (3.2-5.5); ALBUMIN/GLOBULIN RATIO 1.4 (1.0-2.2); BILIRUBIN,TOTAL 0.7 mg/dL (0.2-1.0); CALCIUM 9.8 mg/dL (8.5-10.3); CREATININE 1.2 mg/dL (0.4-1.0); TOTAL PROTEIN 7.7 g/dL (6.7-8.2)
--- NOTE | 2019-06-12 15:09 | CT Report ---
Reason: abd pain and vomiting for 5 days Procedure Date: 06/12/2019 Accession Number: [id number] / [id number] Procedure: CT - Abdomen/Pelvis W CPT Code: FULL RESULT: EXAM: CT ABDOMEN AND PELVIS EXAM DATE: 06/12/2019 02:52 PM. CLINICAL HISTORY: Abdominal pain and vomiting for 5 days. COMPARISONS: ABDOMEN/PELVIS W/O 11/28/2018 6:18 PM. TECHNIQUE: Routine helical CT imaging was performed through the abdomen and pelvis. IV contrast: OPTI 320 100 mL. Enteric contrast: No. Reconstructions: Coronal and sagittal. In accordance with CT protocol optimization, one or more of the following dose reduction techniques were utilized for this exam: automated exposure control, adjustment of mA and/or KV based on patient size, or use of iterative reconstructive technique. FINDINGS: Lung Bases: Unremarkable. Liver: Subtly diffusely decreased in attenuation suggesting fatty infiltration. No hepatic masses detected. Gallbladder/Bile Ducts: Previous cholecystectomy. No intrahepatic or extrahepatic biliary ductal dilatation identified. Spleen: Normal. Pancreas: Normal. Adrenal Glands: Normal. Kidneys: Kidneys enhance symmetrically. No hydronephrosis. Stable 2.5 cm cyst lateral midpole left kidney, and 1.0 cm cyst upper pole right kidney. Peritoneal Cavity/Bowel: No obstructing bowel masses. Scattered diverticuli of the colon without evidence of colitis, or diverticulitis. The appendix is not visualized. Pelvic Organs: Normal. The bladder and visualized pelvic organs are within normal limits. Vasculature: No aneurysms or other significant abnormality. Bones: Stable appearance of the lumbar spine, with posterior spinous fixation. Other: None. IMPRESSION: No bowel obstruction identified. Suspected mild diffuse fatty infiltration of the liver. Colonic diverticulosis without evidence of diverticulitis. [facility]
[2019-06-12] MEDS ORDERED: PROCHLORPERAZINE 10 MG/2 ML VIAL IVP STA (15:24)
[2019-06-12] MEDS ORDERED: diphenhydrAMINE INJ 50 MG/ML VIAL IVP STA (15:24)
[2019-06-12 16:09] LABS: BILIRUBIN,URINE NEGATIVE (NEGATIVE); GLUCOSE, URINE (UA) NEGATIVE (NEGATIVE); KETONES,URINE (UA) NEGATIVE (NEGATIVE); LEUKOCYTE ESTERASE, URINE NEGATIVE (NEGATIVE); NITRITE,URINE NEGATIVE (NEGATIVE); OCCULT BLOOD,URINE TRACE-INTA (NEGATIVE); PROTEIN,URINE NEGATIVE (NEGATIVE); UROBILINOGEN,URINE 0.2 (NORMAL) E.U./dL (NORMAL)
[2019-06-12 16:17] LABS: CLARITY,URINE CLEAR (CLEAR)
[2019-06-12] MEDS ORDERED: MAG HYDROX/AL HYDROX/SIMETH 30 ML UDC PO STA (16:46)
[2019-06-12 17:17] VITALS: BP 134/90
== END 2019-06-12 17:27 | disposition home or self-care (01) ==
LOC: ED 13:08
DX: K29.70 Gastritis, unspecified, without bleeding (principal); E86.0 Dehydration; Z87.19 Personal history of other diseases of the digestive system; M54.5 Low back pain; G89.29 Other chronic pain; I10 Essential (primary) hypertension; E11.9 Type 2 diabetes mellitus without complications; Z79.84 Long term (current) use of oral hypoglycemic drugs; Z79.82 Long term (current) use of aspirin; F17.200 Nicotine dependence, unspecified, uncomplicated
CPT/HCPCS: 36415; 74177; 80053; 81003; 83605; 83690; 83735; 85025; 96361; 96374; 96375; 96376; 99284; 99285; A9270; J1170; J1200; Q9967; 81001; 87086

== ENCOUNTER 2019-06-22 17:00 | Emergency (ER) | payer MEDICARE, OTHER ==
[2019-06-22] MEDS ORDERED: HYDROmorphone 1 MG/ML CARPUJECT IM STA ×2 (17:33→19:51)
--- NOTE | 2019-06-22 17:43 | ED Physician Documentation ---
PD HPI BACK PAIN - Stated complaint Stated Complaint: BACK PAIN - Chief complaint Chief Complaint: Back Pain - History obtained from History obtained from: Patient - History of Present Illness Timing - onset: Other (She is had a long history of back problems. It started in the early and has had multiple surgeries including hardware failure. Over the last 4 or so days she has had intolerable pain of her mid back At the top of her hardware. There was no recent injury. No radiation into the legs or numbness, tingling, saddle anesthesia.) Review of Systems Constitutional: reports: Reviewed and negative Cardiac: reports: Reviewed and negative Respiratory: reports: Reviewed and negative GI: reports: Reviewed and negative : reports: Reviewed and negative PD PAST MEDICAL HISTORY - Past Medical History Cardiovascular: Hypertension, High cholesterol Respiratory: Asthma Neuro: Headaches Endocrine/Autoimmune: Type 2 diabetes GI: GERD, Ulcers, Hiatal hernia, C.difficile, Pancreatitis, Diverticulitis [employer]: Other : Frequency HEENT: None Psych: Anxiety Musculoskeletal: Osteoarthritis, Fibromyalgia, Chronic back pain Derm: Other - Past Surgical History Past Surgical History: Yes General: Appendectomy, Bowel surgery, Colonoscopy Ortho: Carpal Tunnel surgery, Spine surgery Neuro: Radical neck - Present Medications Home Medications: Ambulatory Orders Medication Instructions Recorded Confirmed Simvastatin 40 mg PO QPM 11/25/15 11/28/18 Ondansetron [Ondansetron Odt] 8 mg PO Q8H PRN 01/12/18 11/28/18 glipiZIDE [Glipizide] 5 mg PO 0730 01/12/18 11/28/18 hydrALAZINE [Apresoline] 25 mg PO TID #90 tablet 06/11/18 11/28/18 oxyCODONE [Roxicodone] 5 mg PO Q6H 10/08/18 11/28/18 Aspirin [Aspirin EC] 1 tab PO DAILY 11/28/18 11/28/18 Ondansetron Odt [Zofran] 4 mg TL Q6H PRN #10 tablet 11/28/18 Pantoprazole Sodium [Protonix] 20 mg PO DAILY #14 tablet. 11/28/18 Polyethylene Glycol 3350 [Miralax] 1 packet PO DAILY PRN 11/28/18 11/28/18 Telmisartan [Micardis] 1 tab PO DAILY 11/28/18 11/28/18 Famotidine 20 mg PO DAILY #30 tablet 06/12/19 Promethazine [Phenergan] 25 mg PO Q6H PRN #30 tab 06/12/19 Ondansetron Odt [Zofran] 4 mg TL Q6H PRN #10 tablet 06/22/19 - Allergies Allergies/Adverse Reactions: Allergies Allergy/AdvReac Type Severity Reaction Status Date / Time duloxetine AdvReac Anxiety Verified 06/12/19 13:33 gabapentin AdvReac Hallucinati Verified 06/12/19 13:33 ons levofloxacin [From Levaquin] AdvReac Hallucinati Verified 06/12/19 13:33 ons pregabalin [From Lyrica] AdvReac Unknown Verified 06/12/19 13:33 - Social History Does the pt smoke?: Yes Smoking Status: Current every day smoker Does the pt drink ETOH?: No Does the pt have substance abuse?: No - Immunizations Immunizations are current?: Yes - POLST Patient has POLST: No POLST Status: Full Code PD ED PE NORMAL - Vitals Vital signs reviewed: Yes - General General: Alert and oriented X 3, No acute distress, Other (She winces with motion but is comfortable at rest) - Abdomen Abdomen: Soft, Non tender - Back Back: Other (She is an extensive healed incision over the spine from basically T10 I think her so down to L5.) - Extremities Extremities: Other (Diminished reflexes in the lower extremity but normal strength and sensation throughout.) - Neuro Neuro: Alert and oriented X 3, Normal speech Results - Vitals Vitals: Vital Signs - 24 hr 06/22/19 06/22/19 06/22/19 17:20 17:22 17:58 Temperature 36.5 C 36.5 C Heart Rate 115 H 115 H 98 Respiratory 16 16 18 Rate Blood Pressure 107/81 H 107/81 H 135/85 H O2 Saturation 100 100 98 06/22/19 06/22/19 19:22 19:42 Temperature 36.3 C L 37 C Heart Rate 85 Respiratory 17 Rate Blood Pressure 111/76 O2 Saturation 96 Oxygen O2 Source Room air - Rads (name of study) CT T/L spine Radiology: EMP read contemporaneously (Well-positioned hardware. Grade 1 anterolisthesis of L4 and L5 and postsurgical changes without acute issues, note made of a small thyroid lesion needing follow-up.) PD MEDICAL DECISION MAKING - ED course ED course: 64-year-old woman with acute on chronic back pain, she is had numerous hardware failures in the past and this was assessed with CT and negative. No evidence of cauda equina clinically. She was feeling better after divided doses of Dilaudid here. She has oxycodone at home and will increase her dose pending follow-up which I think is appropriate. Departure - Departure Disposition: Home, Self Care Clinical Impression: Lumbar arthropathy Condition: Good Record reviewed to determine appropriate education?: Yes Instructions: ED Low Back Pain Injury, ED Chronic Pain Management Prescriptions: Ondansetron Odt [Zofran] 4 mg TL Q6H PRN #10 tablet PRN Reason: Nausea / Vomiting Comments: You do have a small lesion in your thyroid. Discussed this with your doctor, he or she may want to get an ultrasound to follow-up on this. It is unrelated to your acute complaint.
--- NOTE | 2019-06-22 18:19 | CT Report ---
Reason: back pain, h/o hardware failures Procedure Date: 06/22/2019 Accession Number: [id number] / [id number] Procedure: CT - THORACIC SPINE WO CPT Code: FULL RESULT: EXAM: CT THORACIC SPINE WITHOUT CONTRAST EXAM DATE: 06/22/2019 05:55 PM. CLINICAL HISTORY: Back pain, h/o hardware failures. COMPARISONS: None. TECHNIQUE: Thin-section axial images were acquired of the thoracic spine from C7 to L1 without contrast. Post-processing: Coronal and sagittal reformats. Other: None. In accordance with CT protocol optimization, one or more of the following dose reduction techniques were utilized for this exam: automated exposure control, adjustment of mA and/or KV based on patient size, or use of iterative reconstructive technique. FINDINGS: Alignment: Well aligned thoracic spine. Bones: No fracture or bone lesion. Loss of disk height at T3-T4 with endplate sclerosis and disk osteophyte complex. Musculature: Normal. No fatty atrophy. Other: The visualized lungs, mediastinum, and abdominal cavity are unremarkable. 1.4 cm hypodense right thyroid lesion to be evaluated further on thyroid ultrasound. An exophytic 1.5 cm hypodense renal cyst in right kidney. IMPRESSION: Well aligned thoracic spine with no acute displaced fracture. A 1.4 cm hypodense right thyroid lesion can be further assessed on thyroid ultrasound. [facility]
[2019-06-22 19:25] VITALS: BP 111/76
--- NOTE | 2019-06-22 19:44 | CT Report ---
Reason: back pain, h/o hardware failures Procedure Date: 06/22/2019 Accession Number: [id number] / [id number] Procedure: CT - LUMBAR SPINE WO CPT Code: FULL RESULT: EXAM: CT LUMBAR SPINE WITHOUT CONTRAST EXAM DATE: 06/22/2019 05:55 PM. CLINICAL HISTORY: Back pain, h/o hardware failures. COMPARISONS: LUMBAR SPINE W/O 11/16/2016 1:25 PM. TECHNIQUE: Thin-section axial images were acquired of the lumbar spine from T12 to S1 without contrast. Post-processing: Coronal and sagittal reformats. Other: None. In accordance with CT protocol optimization, one or more of the following dose reduction techniques were utilized for this exam: automated exposure control, adjustment of mA and/or KV based on patient size, or use of iterative reconstructive technique. FINDINGS: Alignment: Posterior spinal fusion hardware from L2-S2 levels with transpedicular screws, appropriately positioned. Grade 1 anterolisthesis of L4 over L5 noted. No acute displaced fracture or malalignment. MUsculature: Normal. No fatty atrophy. Other: Posterior laminectomies at L5 with postsurgical changes and posterior vertebral soft tissues. No fluid collection at the surgical site. An exophytic 1 cm simple cyst in lower pole of right kidney. IMPRESSION: Posterior spinal fusion hardware from L2-S2 levels with well-positioned transpedicular screws upto S2 levels. No large epidural collection or abscess. Grade 1 anterolisthesis of L4 over L5. Postsurgical changes and posterior vertebral soft tissues. No focal fluid collection in posterior vertebral soft tissues or paraspinal location. [facility] oncology day
== END 2019-06-22 20:07 | disposition home or self-care (01) ==
LOC: ED 17:00
DX: M46.96 Unspecified inflammatory spondylopathy, lumbar region (principal); Z98.1 Arthrodesis status; E07.89 Other specified disorders of thyroid; I10 Essential (primary) hypertension; E11.9 Type 2 diabetes mellitus without complications; Z79.84 Long term (current) use of oral hypoglycemic drugs; Z79.82 Long term (current) use of aspirin; F17.200 Nicotine dependence, unspecified, uncomplicated; C64.9 Malignant neoplasm of unspecified kidney, except renal pelvis
CPT/HCPCS: 71046; 72128; 72131; 96372; 99283; 99284; J1170

== ENCOUNTER 2019-06-22 20:16 | Outpatient (CLI) | payer MEDICARE, OTHER ==
--- NOTE | 2019-06-24 00:53 | XRAY Report ---
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 COMPARISON: CHEST 1 VIEW 04/27/2018 9:01 AM. TECHNIQUE: 2 views. FINDINGS: Lungs/Pleura: No focal opacities evident. No pleural effusion. No pneumothorax. Normal volumes. Mediastinum: Heart and mediastinal contours are unremarkable. Other: Lumbar hardware. Right upper quadrant surgical clip. IMPRESSION: No acute cardiopulmonary disease seen. No evidence for metastasis. [facility]
== END 2019-06-22 20:17 | disposition home or self-care (01) ==
LOC: DI 20:16
PROVIDERS: ATTEND Urology
DX: C64.9 Malignant neoplasm of unspecified kidney, except renal pelvis (principal)
CPT/HCPCS: 71046

== ENCOUNTER 2020-01-23 18:12 | Emergency (ER) | payer MEDICARE, OTHER ==
[2020-01-23] MEDS: SODIUM CHLORIDE 0.9% 1,000 ML IV ONE ×2 (18:55→21:04)
[2020-01-23] MEDS: HYDROmorphone 1 MG/ML CARPUJECT IVP STA (18:55)
[2020-01-23] MEDS: ONDANSETRON 4 MG/2 ML VIAL IVP STA (18:55)
[2020-01-23 19:00] LABS: BASOPHILS % (AUTO) 0.2 %; EOSINOPHILS % (AUTO) 0.2 %; HGB - HEMOGLOBIN 15.7 g/dL (12.0-16.0); LYMPHOCYTES # (AUTO) 1.1 10^3/uL (1.5-3.5); LYMPHOCYTES % (AUTO) 10.1 %; MEAN CORPUSCULAR HGB CONC 32.9 g/dL (32.0-36.0); MEAN CORPUSCULAR VOLUME 91.2 fL (81.0-99.0); MEAN PLATELET VOLUME 10.1 fL (7.9-10.8); MONOCYTES # (AUTO) 0.5 10^3/uL (0.0-1.0); MONOCYTES % (AUTO) 4.9 %; NEUTROPHILS # (AUTO) 9.2 10^3/uL (1.5-6.6); NEUTROPHILS % (AUTO) 84.1 %; PLT - PLATELET COUNT 293 10^3/uL (130-450); RED BLOOD COUNT 5.23 10^6/uL (4.20-5.40); RED CELL DISTRIBUTION WIDTH 13.4 % (12.0-15.0); WHITE BLOOD COUNT 10.9 x10^3/uL (4.8-10.8)
[2020-01-23 19:13] LABS: ALBUMIN 5.3 g/dL (3.2-5.5); ALBUMIN/GLOBULIN RATIO 1.7 (1.0-2.2); BILIRUBIN,TOTAL 1.4 mg/dL (0.2-1.0); CALCIUM 9.8 mg/dL (8.5-10.3); CREATININE 1.6 mg/dL (0.4-1.0); TOTAL PROTEIN 8.5 g/dL (6.7-8.2)
--- NOTE | 2020-01-23 19:47 | ED Physician Documentation ---
History of Present Illness - Stated complaint Stated Complaint: N/V/D X3 DAYS, BACK PX - Chief complaint Chief Complaint: Back Pain - History obtained from History obtained from: Patient - Additonal information Additional information: Patient comes emergency department complaining of nausea and vomiting for the last 3 days. The patient states that she has some diarrhea occasionally but has not had diarrhea with this illness. She states that she has not had abdominal pain, other than now some sore muscles from vomiting. She does have chronic back pain and has not been able to hold down her oxycodone, so she has been having pain in her back which is exacerbating her nausea, as well. Patient states that she has not been able to hold down any food and has not been able to hold down fluids, either. Patient denies fevers or chills. No dysuria. No cough, shortness of breath, or chest pain. No sore throat. No other complaints at this time. She states that she is still quite nauseated and vomited again after arriving in the emergency department. Review of Systems Ten Systems: 10 systems reviewed and negative Constitutional: reports: Reviewed and negative Eyes: reports: Reviewed and negative Ears: reports: Reviewed and negative Nose: reports: Reviewed and negative Throat: reports: Reviewed and negative Cardiac: reports: Reviewed and negative Respiratory: reports: Reviewed and negative GI: reports: Nausea, Vomiting : reports: Reviewed and negative Skin: reports: Reviewed and negative Musculoskeletal: reports: Back pain Neurologic: reports: Reviewed and negative Psychiatric: reports: Reviewed and negative Endocrine: reports: Reviewed and negative Immunocompromised: reports: Reviewed and negative PD PAST MEDICAL HISTORY - Past Medical History Past Medical History: Yes Cardiovascular: Hypertension, High cholesterol Respiratory: Asthma Neuro: Headaches Endocrine/Autoimmune: Type 2 diabetes GI: GERD, Ulcers, Hiatal hernia, C.difficile, Pancreatitis, Diverticulitis 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 HEENT: None Psych: Anxiety Musculoskeletal: Osteoarthritis, Fibromyalgia, Chronic back pain Derm: Other - Past Surgical History Past Surgical History: Yes General: Appendectomy, Bowel surgery, Colonoscopy Ortho: Carpal Tunnel surgery, Spine surgery Neuro: Radical neck - Present Medications Home Medications: Ambulatory Orders Medication Instructions Recorded Confirmed Simvastatin 40 mg PO QPM 11/25/15 11/28/18 Ondansetron [Ondansetron Odt] 8 mg PO Q8H PRN 01/12/18 11/28/18 glipiZIDE [Glipizide] 5 mg PO 0730 01/12/18 11/28/18 hydrALAZINE [Apresoline] 25 mg PO TID #90 tablet 06/11/18 11/28/18 oxyCODONE [Roxicodone] 5 mg PO Q6H 10/08/18 11/28/18 Aspirin [Aspirin EC] 1 tab PO DAILY 11/28/18 11/28/18 Ondansetron Odt [Zofran] 4 mg TL Q6H PRN #10 tablet 11/28/18 Pantoprazole Sodium [Protonix] 20 mg PO DAILY #14 tablet. 11/28/18 Telmisartan [Micardis] 1 tab PO DAILY 11/28/18 11/28/18 polyethylene glycoL 3350 [Miralax] 1 packet PO DAILY PRN 11/28/18 11/28/18 Famotidine 20 mg PO DAILY #30 tablet 06/12/19 Promethazine [Phenergan] 25 mg PO Q6H PRN #30 tab 06/12/19 Ondansetron Odt [Zofran] 4 mg TL Q6H PRN #10 tablet 06/22/19 - Allergies Allergies/Adverse Reactions: Allergies Allergy/AdvReac Type Severity Reaction Status Date / Time duloxetine AdvReac Anxiety Verified 06/12/19 13:33 gabapentin AdvReac Hallucinati Verified 06/12/19 13:33 ons levofloxacin [From Levaquin] AdvReac Hallucinati Verified 06/12/19 13:33 ons pregabalin [From Lyrica] AdvReac Unknown Verified 06/12/19 13:33 - Social History Does the pt smoke?: Yes Smoking Status: Current every day smoker Does the pt drink ETOH?: No Does the pt have substance abuse?: No - Immunizations Immunizations are current?: Yes - POLST Patient has POLST: No POLST Status: Full Code PD ED PE NORMAL - Vitals Vital signs reviewed: Yes - General General: Alert and oriented X 3, No acute distress - HEENT HEENT: Atraumatic, PERRL, EOMI, Moist mucous membranes - Neck Neck: Supple, no meningeal sign - Cardiac Cardiac: RRR, No murmur - Respiratory Respiratory: No respiratory distress, Clear bilaterally - Abdomen Abdomen: Soft, Non tender, Non distended - Back Back: Other (Patient has generalized lumbar back pain over both the lumbar spine and the bilateral paraspinal musculature. Patient has a scar over her lumbar spine, consistent with surgical history.) - Derm Derm: Warm and dry - Extremities Extremities: No deformity - Neuro Neuro: Alert and oriented X 3 - Psych Psych: Normal mood, Normal affect Results - Vitals Vitals: Vital Signs - 24 hr 01/23/20 18:17 Temperature 37.2 C Heart Rate 120 H Respiratory 20 Rate Blood Pressure 163/117 H O2 Saturation 97 Oxygen O2 Source Room air - Labs Labs: Laboratory Tests 01/23/20 01/23/20 18:50 18:50 WBC 10.9 H RBC 5.23 Hgb 15.7 Hct 47.7 H MCV 91.2 MCH 30.0 MCHC 32.9 RDW 13.4 Plt Count 293 MPV 10.1 Neut # (Auto) 9.2 H Lymph # (Auto) 1.1 L [place] # (Auto) 0.5 Eos # (Auto) 0.0 Baso # (Auto) 0.0 Absolute Nucleated RBC 0.00 Nucleated RBC % 0.0 Sodium 131 L Potassium 3.5 Chloride 94 L Carbon Dioxide 22 Anion Gap 15.0 H BUN 47 H Creatinine 1.6 H Estimated GFR (MDRD) 32 L Glucose 216 H Calcium 9.8 Total Bilirubin 1.4 H AST 21 ALT 21 Alkaline Phosphatase 61 Total Protein 8.5 H Albumin 5.3 Globulin 3.2 Albumin/Globulin Ratio 1.7 Lipase 20 L PD MEDICAL DECISION MAKING - ED course Complexity details: reviewed results, re-evaluated patient, considered differential, d/w patient ED course: Patient was given 1 L bolus point and normal saline initially and worked up with labs. Patient's GFR was found to be 35 and BUN and creatinine were 47 and 1.6. Her white blood cell count was slightly elevated. Patient was not able to urinate after the first liter fluid so was given a second liter. She is also been treated with Zofran and Dilaudid, after which she was found to be feeling somewhat better. The patient's abdomen was benign, and I did not feel imaging was indicated at this time. I have signed the patient out to Dr. Medina, pending urinalysis, reevaluation, and final disposition.
[2020-01-23 22:11] LABS: BILIRUBIN,URINE NEGATIVE (NEGATIVE); GLUCOSE, URINE (UA) 100 mg/dL (NEGATIVE); KETONES,URINE (UA) TRACE mg/dL (NEGATIVE); LEUKOCYTE ESTERASE, URINE NEGATIVE (NEGATIVE); NITRITE,URINE NEGATIVE (NEGATIVE); OCCULT BLOOD,URINE TRACE-INTA (NEGATIVE); PROTEIN,URINE TRACE mg/dL (NEGATIVE); UROBILINOGEN,URINE 0.2 (NORMAL) E.U./dL (NORMAL)
[2020-01-23 22:12] LABS: CLARITY,URINE CLEAR (CLEAR)
--- NOTE | 2020-01-23 22:47 | ED Physician Documentation ---
History of Present Illness - Stated complaint Stated Complaint: N/V/D X3 DAYS, BACK PX - Chief complaint Chief Complaint: Back Pain - History obtained from History obtained from: Other (Patient was signed out to me at shift change by Dr. Isabell Palumbo. Patient's been reevaluated she is requesting to be discharged home at this time.Please see separate history and physical from Dr. Isabell Palumbo for further details.) Review of Systems Constitutional: reports: Reviewed and negative Eyes: reports: Reviewed and negative Ears: reports: Reviewed and negative Nose: reports: Reviewed and negative Throat: reports: Reviewed and negative Cardiac: reports: Reviewed and negative Respiratory: reports: Reviewed and negative GI: reports: Vomiting : reports: Reviewed and negative Skin: reports: Reviewed and negative Musculoskeletal: reports: Reviewed and negative Neurologic: reports: Reviewed and negative Psychiatric: reports: Reviewed and negative Endocrine: reports: Reviewed and negative Immunocompromised: reports: Reviewed and negative PD PAST MEDICAL HISTORY - Past Medical History Past Medical History: Yes Cardiovascular: Hypertension, High cholesterol Respiratory: Asthma Neuro: Headaches Endocrine/Autoimmune: Type 2 diabetes GI: GERD, Ulcers, Hiatal hernia, C.difficile, Pancreatitis, Diverticulitis 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 HEENT: None Psych: Anxiety Musculoskeletal: Osteoarthritis, Fibromyalgia, Chronic back pain Derm: Other - Past Surgical History Past Surgical History: Yes General: Appendectomy, Bowel surgery, Colonoscopy Ortho: Carpal Tunnel surgery, Spine surgery Neuro: Radical neck - Present Medications Home Medications: Ambulatory Orders Medication Instructions Recorded Confirmed Simvastatin 40 mg PO QPM 11/25/15 11/28/18 Ondansetron [Ondansetron Odt] 8 mg PO Q8H PRN 01/12/18 11/28/18 glipiZIDE [Glipizide] 5 mg PO 0730 01/12/18 11/28/18 hydrALAZINE [Apresoline] 25 mg PO TID #90 tablet 06/11/18 11/28/18 oxyCODONE [Roxicodone] 5 mg PO Q6H 10/08/18 11/28/18 Aspirin [Aspirin EC] 1 tab PO DAILY 11/28/18 11/28/18 Ondansetron Odt [Zofran] 4 mg TL Q6H PRN #10 tablet 11/28/18 Pantoprazole Sodium [Protonix] 20 mg PO DAILY #14 tablet. 11/28/18 Telmisartan [Micardis] 1 tab PO DAILY 11/28/18 11/28/18 polyethylene glycoL 3350 [Miralax] 1 packet PO DAILY PRN 11/28/18 11/28/18 Famotidine 20 mg PO DAILY #30 tablet 06/12/19 Promethazine [Phenergan] 25 mg PO Q6H PRN #30 tab 06/12/19 Ondansetron Odt [Zofran] 4 mg TL Q6H PRN #10 tablet 06/22/19 Ondansetron Odt [Zofran Odt] 4 mg TL Q6H PRN #10 tablet 01/23/20 - Allergies Allergies/Adverse Reactions: Allergies Allergy/AdvReac Type Severity Reaction Status Date / Time duloxetine AdvReac Anxiety Verified 06/12/19 13:33 gabapentin AdvReac Hallucinati Verified 06/12/19 13:33 ons levofloxacin [From Levaquin] AdvReac Hallucinati Verified 06/12/19 13:33 ons pregabalin [From Lyrica] AdvReac Unknown Verified 06/12/19 13:33 - Social History Does the pt smoke?: Yes Smoking Status: Current every day smoker Does the pt drink ETOH?: No Does the pt have substance abuse?: No - Immunizations Immunizations are current?: Yes - POLST Patient has POLST: No POLST Status: Full Code PD ED PE NORMAL - Vitals Vital signs reviewed: Yes - General General: Alert and oriented X 3, No acute distress - HEENT HEENT: PERRL - Neck Neck: Supple, no meningeal sign - Cardiac Cardiac: RRR, No murmur - Respiratory Respiratory: Clear bilaterally - Abdomen Abdomen: Normal bowel sounds, Soft, Non tender, Non distended, No organomegaly - Derm Derm: Warm and dry - Extremities Extremities: No deformity - Neuro Neuro: Alert and oriented X 3 - Psych Psych: Normal mood, Normal affect Results - Vitals Vitals: Vital Signs - 24 hr 01/23/20 01/23/20 01/23/20 18:17 21:12 23:02 Temperature 37.2 C 37.2 C 37.3 C Heart Rate 120 H 97 99 Respiratory 20 18 20 Rate Blood Pressure 163/117 H 175/107 H 178/119 H O2 Saturation 97 98 98 01/23/20 23:17 Temperature Heart Rate 82 Respiratory 17 Rate Blood Pressure O2 Saturation 98 Oxygen O2 Source Room air - Labs Labs: Laboratory Tests 01/23/20 01/23/20 01/23/20 18:50 18:50 21:50 WBC 10.9 H RBC 5.23 Hgb 15.7 Hct 47.7 H MCV 91.2 MCH 30.0 MCHC 32.9 RDW 13.4 Plt Count 293 MPV 10.1 Neut # (Auto) 9.2 H Lymph # (Auto) 1.1 L [place] # (Auto) 0.5 Eos # (Auto) 0.0 Baso # (Auto) 0.0 Absolute Nucleated RBC 0.00 Nucleated RBC % 0.0 Sodium 131 L Potassium 3.5 Chloride 94 L Carbon Dioxide 22 Anion Gap 15.0 H BUN 47 H Creatinine 1.6 H Estimated GFR (MDRD) 32 L Glucose 216 H Calcium 9.8 Total Bilirubin 1.4 H AST 21 ALT 21 Alkaline Phosphatase 61 Total Protein 8.5 H Albumin 5.3 Globulin 3.2 Albumin/Globulin Ratio 1.7 Lipase 20 L Urine Color YELLOW Urine Clarity CLEAR Urine pH 6.0 Ur Specific [place] 1.020 Urine Protein TRACE Urine Glucose (UA) 100 H Urine Ketones TRACE Urine Occult Blood TRACE-INTA Urine Nitrite NEGATIVE Urine Bilirubin NEGATIVE Urine Urobilinogen 0.2 (NORMAL) Ur Leukocyte Esterase NEGATIVE Ur Microscopic Review NOT INDICATED Urine Culture Comments NOT INDICATED PD MEDICAL DECISION MAKING - ED course Complexity details: re-evaluated patient, d/w patient, other (Patient signed out to me at shift change by Dr. Isabell Palumbo pending results of urinalysis patient is received 2 L of IV fluids her urinalysis is unremarkable she is tolerated p.o. challenge and she is requesting to be discharged home at this time.I did offer to admit this patient for observation for further IV fluids and hydration however she reports that she does want to go home she feels better at this time. patient reexamined, her abd is soft nt/nd, patient requesting to be dcd home at this time.) Departure - Departure Disposition: 01 Home, Self Care Clinical Impression: Opiate withdrawal Nausea & vomiting Qualifiers: Vomiting type: bilious vomiting Qualified Code(s): R11.14 - Bilious vomiting Condition: Stable Instructions: ED Diet Vomiting Diarrhea Follow-Up: Dwain Deluna MD [Primary Care Provider] - Tomorrow Prescriptions: Ondansetron Odt [Zofran Odt] 4 mg TL Q6H PRN #10 tablet PRN Reason: Nausea / Vomiting Discharge Date/Time: 01/23/20 23:25
[2020-01-23 23:03] VITALS: BP 178/119
[2020-01-23] MEDS: HYDROmorphone 2 MG/ML VIAL IVP STA (23:13)
== END 2020-01-23 23:25 | disposition home or self-care (01) ==
LOC: ED 18:12
DX: F11.23 Opioid dependence with withdrawal (principal); T40.2X5A Adverse effect of other opioids, initial encounter; R11.14 Bilious vomiting; I10 Essential (primary) hypertension; E11.9 Type 2 diabetes mellitus without complications; F17.200 Nicotine dependence, unspecified, uncomplicated; Z79.84 Long term (current) use of oral hypoglycemic drugs
CPT/HCPCS: 36415; 80053; 81003; 83690; 85025; 96361; 96374; 96376; 99283; 99285; J1170; 81001; 87086

== ENCOUNTER 2020-03-22 10:08 | Emergency (ER) | payer MEDICARE, OTHER ==
--- NOTE | 2020-03-22 10:26 | ED Physician Documentation ---
PD HPI NVD - Stated complaint Stated Complaint: VOMITING - Chief complaint Chief Complaint: Abd Pain - History obtained from History obtained from: Patient - History of Present Illness Timing - onset: How many days ago (3) Timing - duration: Days (onset 3 days ago of nausea and some vomiting, which worsened yesterday and associated with some diarrhea as well. Denies blood in e mesis nor stool - had some dark color to stool but had taken Pepto. History of CDiff several times in the past.) Timing - details: Gradual onset, Still present, Waxing and waning (tried home meds without improvement. Has Phenergan that she takes daily and hydrocodone daily as well. Has not been able to keep down home meds (those and others) since yesterday.) Associated symptoms: Abdominal pain (crampy across lower abd both sides from around the back. She says feels like muscle spasms in abd wall.). No: Fever Contributing factors: Diabetes. No: Sick contact, Bad food, Recent antibiotics Improved by: No: Vomiting, Position, Meds (tried Zofran and Phenergan at home.) Worsened by: Eating, Palpation Similar symptoms before: No diagnosis (has had this episodically, and she says once she misses meds for 1-2 days, then also seems to be at deficit from not having usual meds.) Recently seen: Not recently seen Review of Systems Constitutional: denies: Fever, Chills Nose: denies: Rhinorrhea / runny nose, Congestion Throat: denies: Sore throat Respiratory: denies: Cough GI: reports: Abdominal Pain, Nausea, Vomiting, Diarrhea. denies: Abdominal Swelling, Constipation, Hematemesis, Bloody / black stool : denies: Dysuria, Frequency Skin: denies: Rash, Lesions Musculoskeletal: denies: Extremity swelling Neurologic: reports: Generalized weakness. 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: None Psych: Anxiety Musculoskeletal: Osteoarthritis, Fibromyalgia, Chronic back pain Derm: Other - Past Surgical History Past Surgical History: Yes General: Appendectomy, Bowel surgery, Colonoscopy Ortho: Carpal Tunnel surgery, Spine surgery Neuro: Radical neck - Present Medications Home Medications: Ambulatory Orders Medication Instructions Recorded Confirmed Simvastatin 40 mg PO QPM 11/25/15 11/28/18 Ondansetron [Ondansetron Odt] 8 mg PO Q8H PRN 01/12/18 11/28/18 glipiZIDE [Glipizide] 5 mg PO 0730 01/12/18 11/28/18 hydrALAZINE [Apresoline] 25 mg PO TID #90 tablet 06/11/18 11/28/18 oxyCODONE [Roxicodone] 5 mg PO Q6H 10/08/18 11/28/18 Aspirin [Aspirin EC] 1 tab PO DAILY 11/28/18 11/28/18 Ondansetron Odt [Zofran] 4 mg TL Q6H PRN #10 tablet 11/28/18 Pantoprazole Sodium [Protonix] 20 mg PO DAILY #14 tablet. 11/28/18 Telmisartan [Micardis] 1 tab PO DAILY 11/28/18 11/28/18 polyethylene glycoL 3350 [Miralax] 1 packet PO DAILY PRN 11/28/18 11/28/18 Famotidine 20 mg PO DAILY #30 tablet 06/12/19 Promethazine [Phenergan] 25 mg PO Q6H PRN #30 tab 06/12/19 Ondansetron Odt [Zofran] 4 mg TL Q6H PRN #10 tablet 06/22/19 Ondansetron Odt [Zofran Odt] 4 mg TL Q6H PRN #10 tablet 01/23/20 - Allergies Allergies/Adverse Reactions: Allergies Allergy/AdvReac Type Severity Reaction Status Date / Time duloxetine AdvReac Anxiety Verified 03/22/20 10:11 gabapentin AdvReac Hallucinati Verified 03/22/20 10:11 ons levofloxacin [From Levaquin] AdvReac Hallucinati Verified 03/22/20 10:11 ons pregabalin [From Lyrica] AdvReac Unknown Verified 03/22/20 10:11 - Social History Does the pt smoke?: Yes Smoking Status: Current every day smoker Does the pt drink ETOH?: No Does the pt have substance abuse?: No - Immunizations Immunizations are current?: Yes - POLST Patient has POLST: No POLST Status: Full Code PD ED PE NORMAL - Vitals Vital signs reviewed: Yes - General General: Alert and oriented X 3, Well developed/nourished, Other (appears uncomfortable. Holding emesis bag with recent emesis, that appears without obvious blood. ) - HEENT HEENT: Pharynx benign - Neck Neck: Supple, no meningeal sign, No adenopathy - Cardiac Cardiac: No murmur. No: RRR (regular but tachycardic) - Respiratory Respiratory: No respiratory distress, Clear bilaterally - Abdomen Abdomen: Soft, Non distended, No organomegaly, Other (tender in the mid to lower abd without distension nor percussion/guarding. ). No: Normal bowel sounds (increased) - Rectal Rectal: Deferred - Derm Derm: Warm and dry. No: Normal color (somewhat pale) - Extremities Extremities: No tenderness to palpate, Normal ROM s pain, No edema, No calf tenderness / cord - Neuro Neuro: Alert and oriented X 3, No motor deficit, Normal speech Results - Vitals Vitals: Vital Signs - 24 hr 03/22/20 03/22/20 03/22/20 10:11 10:36 11:30 Temperature 36.3 C L Heart Rate 122 H 118 H 112 H Respiratory 28 H 18 12 Rate Blood Pressure 194/142 H O2 Saturation 97 98 98 03/22/20 03/22/20 03/22/20 12:01 12:51 14:00 Temperature Heart Rate 106 H 104 H 96 Respiratory 12 16 14 Rate Blood Pressure 182/115 H 209/120 H 114/71 O2 Saturation 98 99 97 03/22/20 15:00 Temperature Heart Rate 96 Respiratory 20 Rate Blood Pressure 114/66 O2 Saturation 96 Oxygen O2 Source Room air - Labs Labs: Laboratory Tests 03/22/20 03/22/20 03/22/20 10:30 10:30 10:34 WBC 14.8 H RBC 5.08 Hgb 15.5 Hct 46.3 MCV 91.1 MCH 30.5 MCHC 33.5 RDW 13.4 Plt Count 366 MPV 10.3 Neut # (Auto) 13.4 H Lymph # (Auto) 0.8 L [place] # (Auto) 0.4 Eos # (Auto) 0.0 Baso # (Auto) 0.0 Absolute Nucleated RBC 0.00 Nucleated RBC % 0.0 Sodium 133 L Potassium 3.8 Chloride 90 L Carbon Dioxide 24 Anion Gap 19.0 H BUN 18 Creatinine 1.3 H Estimated GFR (MDRD) 41 L Glucose 288 H Lactic Acid Calcium 10.3 Magnesium 1.9 Total Bilirubin 0.9 AST 28 ALT 24 Alkaline Phosphatase 67 Total Protein 9.1 H Albumin 5.1 Globulin 4.0 Albumin/Globulin Ratio 1.3 Lipase 24 Urine Color Urine Clarity Urine pH Ur Specific [place] Urine Protein Urine Glucose (UA) Urine Ketones Urine Occult Blood Urine Nitrite Urine Bilirubin Urine Urobilinogen Ur Leukocyte Esterase Urine RBC Urine WBC Ur Squamous Epith Cells Urine Bacteria Ur Microscopic Review Urine Culture Comments Ethyl Alcohol < 5.0 03/22/20 03/22/20 12:10 12:25 WBC RBC Hgb Hct MCV MCH MCHC RDW Plt Count MPV Neut # (Auto) Lymph # (Auto) [place] # (Auto) Eos # (Auto) Baso # (Auto) Absolute Nucleated RBC Nucleated RBC % Sodium Potassium Chloride Carbon Dioxide Anion Gap BUN Creatinine Estimated GFR (MDRD) Glucose Lactic Acid 2.7 H Calcium Magnesium Total Bilirubin AST ALT Alkaline Phosphatase Total Protein Albumin Globulin Albumin/Globulin Ratio Lipase Urine Color YELLOW Urine Clarity CLEAR Urine pH 6.0 Ur Specific [place] 1.020 Urine Protein 100 H Urine Glucose (UA) >=1000 H Urine Ketones 15 H Urine Occult Blood MODERATE H Urine Nitrite NEGATIVE Urine Bilirubin NEGATIVE Urine Urobilinogen 0.2 (NORMAL) Ur Leukocyte Esterase NEGATIVE Urine RBC 0-5 Urine WBC 0-3 Ur Squamous Epith Cells RARE Squamous Urine Bacteria Few Ur Microscopic Review INDICATED Urine Culture Comments NOT INDICATED Ethyl Alcohol - Rads (name of study) abd/pelvic CT Radiology: Prelim report reviewed (no acute process; diverticula without diverticulitis. ), See rad report PD MEDICAL DECISION MAKING - ED course Complexity details: reviewed results, re-evaluated patient (improved with doses IV meds and is feeling able to eat/drink and did so here. So likely will be able to continue at home. She shared decision to try going home. ), considered differential (consider gastritis or food related. Can check stool for c.diff if she goes here. Check labs. COnsider also diverticulitis or other process, so will get CT scan. ), d/w patient Departure - Departure Disposition: 01 Home, Self Care Clinical Impression: Abdominal pain Qualifiers: Abdominal location: generalized Qualified Code(s): R10.84 - Generalized abdominal pain Nausea and vomiting Qualifiers: Vomiting type: unspecified Vomiting Intractability: intractable Qualified Code(s): R11.2 - Nausea with vomiting, unspecified Condition: Stable Record reviewed to determine appropriate education?: Yes Instructions: ED Abdominal Pain Unkn Cause Follow-Up: Dwain Deluna MD [Primary Care Provider] - Comments: Continue usual medications. Return if recurrent symptoms despite home medicines. Your CT scan and lab test did not show any obvious significant process. Presume an intestinal irritation or possibly food related. Once you were vomiting, you probably felt the symptoms of lack of your usual medicines. Hopefully with being rehydrated and medicated here, you will be able to continue your usual medicines at home. Discharge Date/Time: 03/22/20 15:34
[2020-03-22 10:42] LABS: BASOPHILS % (AUTO) 0.2 %; HGB - HEMOGLOBIN 15.5 g/dL (12.0-16.0); LYMPHOCYTES # (AUTO) 0.8 10^3/uL (1.5-3.5); LYMPHOCYTES % (AUTO) 5.2 %; MEAN CORPUSCULAR HEMOGLOBIN 30.5 pg (27.0-31.0); MEAN CORPUSCULAR HGB CONC 33.5 g/dL (32.0-36.0); MEAN CORPUSCULAR VOLUME 91.1 fL (81.0-99.0); MEAN PLATELET VOLUME 10.3 fL (7.9-10.8); MONOCYTES # (AUTO) 0.4 10^3/uL (0.0-1.0); NEUTROPHILS # (AUTO) 13.4 10^3/uL (1.5-6.6); NEUTROPHILS % (AUTO) 91.1 %; PLT - PLATELET COUNT 366 10^3/uL (130-450); RED BLOOD COUNT 5.08 10^6/uL (4.20-5.40); RED CELL DISTRIBUTION WIDTH 13.4 % (12.0-15.0); WHITE BLOOD COUNT 14.8 x10^3/uL (4.8-10.8)
[2020-03-22 10:54] LABS: ALBUMIN 5.1 g/dL (3.2-5.5); ALBUMIN/GLOBULIN RATIO 1.3 (1.0-2.2); BILIRUBIN,TOTAL 0.9 mg/dL (0.2-1.0); CALCIUM 10.3 mg/dL (8.5-10.3); CREATININE 1.3 mg/dL (0.4-1.0); TOTAL PROTEIN 9.1 g/dL (6.7-8.2)
[2020-03-22] MEDS ORDERED: ONDANSETRON 4 MG/2 ML VIAL IVP STA (11:15)
[2020-03-22] MEDS ORDERED: SODIUM CHLORIDE 0.9% 1,000 ML IV STA ×2 (11:15→13:06)
[2020-03-22] MEDS ORDERED: HYDROmorphone 1 MG/ML CARPUJECT IVP STA ×3 (11:15→14:29)
[2020-03-22] MEDS ORDERED: FAMOTIDINE 20 MG/2 ML SYRINGE IVP STA (11:16)
[2020-03-22] MEDS ORDERED: IOVERSOL 320 100 ML VIAL IVP ONE ×2 (11:28→16:07)
[2020-03-22 11:45] LABS: MAGNESIUM 1.9 mg/dL (1.7-2.8)
[2020-03-22 12:18] LABS: BILIRUBIN,URINE NEGATIVE (NEGATIVE); GLUCOSE, URINE (UA) >=1000 mg/dL (NEGATIVE); KETONES,URINE (UA) 15 mg/dL (NEGATIVE); LEUKOCYTE ESTERASE, URINE NEGATIVE (NEGATIVE); NITRITE,URINE NEGATIVE (NEGATIVE); OCCULT BLOOD,URINE MODERATE (NEGATIVE); PROTEIN,URINE 100 mg/dL (NEGATIVE); UROBILINOGEN,URINE 0.2 (NORMAL) E.U./dL (NORMAL)
[2020-03-22 12:19] LABS: CLARITY,URINE CLEAR (CLEAR)
[2020-03-22 12:40] LABS: BACTERIA,URINE Few /HPF (None Seen); RBC,URINE 0-5 /HPF (0-5); SQUAMOUS EPITHELIAL CELL,UR RARE Squamous (<= Few)
--- NOTE | 2020-03-22 12:44 | CT Report ---
Reason: abd pain/ vomiting Procedure Date: 03/22/2020 Accession Number: [id number] / [id number] Procedure: CT - Abdomen/Pelvis W CPT Code: Final Report FULL RESULT: PROCEDURE: Abdomen/Pelvis W INDICATIONS: abd pain/ vomiting CONTRAST: IV CONTRAST: Optiray 320 ml: 100 PO CONTRAST: *NO PO CONTRAST TECHNIQUE: After the administration of oral and intravenous contrast, 5 mm thick sections acquired from the diaphragms to the symphysis. 5 mm thick coronal and sagittal reformats were acquired. For radiation dose reduction, the following was used: automated exposure control, adjustment of mA and/or kV according to patient size. COMPARISON: CT abdomen and pelvis 06/12/2019. FINDINGS: Image quality: Excellent. ABDOMEN: Lung bases: Lung bases are clear. Heart size is normal. Solid organs: Right lobe of the liver is prominent. Hepatic steatosis. Gallbladder is absent Biliary system is non dilated. Pancreas enhances normally. No splenomegaly. No adrenal nodules. Kidneys demonstrate normal size and enhancement, without hydronephrosis. Several small renal cysts. Some of which are too small to characterize but are unchanged. Peritoneum and bowel: Bowel loops demonstrate normal wall thickness and caliber. No free fluid or air. Scattered colonic diverticuli. Nodes and vessels: No retroperitoneal or mesenteric adenopathy by size criteria. Aorta and inferior vena cava are normal in size. Miscellaneous: Fat-containing periumbilical hernia. PELVIS: Genitourinary: Bladder is decompressed. Normal uterus. Miscellaneous: No inguinal hernias or adenopathy. Bones: No suspicious bony lesions. No vertebral body compression fractures. L2-sacral fixation hardware. No hardware fracture. Moderate to severe degenerative change at L1-L2. IMPRESSION: 1. No acute inflammatory process identified. No small bowel obstruction. No free fluid. 2. Diverticulosis. 3. Hepatic steatosis. Reviewed by: Po Almaraz MD on 03/22/2020 12:43 PM PDT Approved by: Po Almaraz MD on 03/22/2020 12:43 PM PDT Station ID: [id number]
[2020-03-22] MEDS ORDERED: PROMETHAZINE INJ 12.5 MG in SODIUM CHLORIDE 0.9% 50 ML IV STA (13:06)
[2020-03-22] MEDS ORDERED: oxyCODONE 5 MG TABLET PO STA (14:29)
[2020-03-22] MEDS ORDERED: ONDANSETRON ODT 4 MG TABLET TL STA (14:29)
[2020-03-22 15:04] VITALS: BP 114/66
== END 2020-03-22 15:34 | disposition home or self-care (01) ==
LOC: ED 10:08
DX: R10.84 Generalized abdominal pain (principal); R11.2 Nausea with vomiting, unspecified; K57.30 Diverticulosis of large intestine without perforation or abscess without bleeding; K76.0 Fatty (change of) liver, not elsewhere classified; Z87.19 Personal history of other diseases of the digestive system; E11.9 Type 2 diabetes mellitus without complications; Z79.84 Long term (current) use of oral hypoglycemic drugs; I10 Essential (primary) hypertension; F17.200 Nicotine dependence, unspecified, uncomplicated; Z79.82 Long term (current) use of aspirin
CPT/HCPCS: 36415; 74177; 80053; 81001; 83605; 83690; 83735; 85025; 96361; 96365; 96375; 96376; 99284; A9270; J1170; J7040; Q0162; Q9967; 80320; 81003; 87086

== ENCOUNTER 2020-07-20 12:51 | Outpatient (CLI) | payer MEDICARE, OTHER | END 2020-07-20 12:52 | disposition home or self-care (01) | LOC: LAB 12:51 | PROVIDERS: ATTEND Ophthalmology | DX: Z01.818 Encounter for other preprocedural examination (principal); H25.811 Combined forms of age-related cataract, right eye; Z20.828 Contact with and (suspected) exposure to other viral communicable diseases ==

== ENCOUNTER 2020-07-23 07:49 | Day surgery (SDC) | payer MEDICARE, OTHER ==
[2020-07-23] MEDS ORDERED: LACTATED RINGERS 500 ML IV ONE ×2 (07:58→09:28)
[2020-07-23] MEDS ORDERED: ATROPINE ABBOJECT 1 MG/10 ML SYRINGE IVP PRN (08:23)
[2020-07-23] MEDS ORDERED: ePHEDrine 50 MG/ML VIAL IVP PRN (08:23)
[2020-07-23] MEDS ORDERED: METOCLOPRAMIDE 10 MG/2 ML VIAL IVP PRN (08:23)
[2020-07-23] MEDS ORDERED: ONDANSETRON 4 MG/2 ML VIAL IVP PRN (08:23)
[2020-07-23] MEDS ORDERED: fentaNYL 100 MCG/2 ML VIAL IVP PRN (08:23)
[2020-07-23] MEDS ORDERED: NALOXONE 0.4 MG/ML VIAL IVP PRN (08:23)
[2020-07-23] MEDS ORDERED: HYDROmorphone 0.5 MG/0.5 ML SYRINGE IVP PRN (08:23)
[2020-07-23] MEDS ORDERED: MORPHINE 2 MG/ML CARPUJECT IVP PRN (08:23)
--- NOTE | 2020-07-23 08:23 | ANESTHESIA ---
Pre-Anesthesia VS, & Labs - Diagnosis right eye cataract - Procedure right CATIOL Vital Signs: Temp Pulse Resp BP Pulse Ox 36.7 C 91 15 104/67 99 07/23/20 08:15 07/23/20 08:15 07/23/20 08:15 07/23/20 08:15 07/23/20 08:15 Height: 5 ft Weight (kg): 77 kg Body Mass Index: 33.1 BMI Classification: Obese - NPO >8 hours - Is Patient ?: No - Lab Results Lab results reviewed: Yes Home Medications and Allergies Home Medications: Ambulatory Orders Sitagliptin Phosphate [Januvia] 50 mg PO 07/22/20 Simvastatin 40 mg PO QPM 11/25/15 oxyCODONE [Roxicodone] 5 mg PO Q6H 10/08/18 Aspirin [Aspirin EC] 1 tab PO DAILY 11/28/18 polyethylene glycoL 3350 [Miralax] 1 packet PO DAILY PRN 11/28/18 Omeprazole 20 mg PO DAILY 05/17/20 Sitagliptin Phosphate [Januvia] 50 mg PO 07/22/20 Allergies/Adverse Reactions: Allergies Allergy/AdvReac Type Severity Reaction Status Date / Time duloxetine AdvReac Anxiety Verified 05/16/20 10:34 gabapentin AdvReac Hallucinati Verified 05/16/20 10:34 ons levofloxacin [From Levaquin] AdvReac Hallucinati Verified 05/16/20 10:34 ons pregabalin [From Lyrica] AdvReac Unknown Verified 05/16/20 10:34 Anes History & Medical History - Anesthetic History Anesthesia Complications: reports: No previous complications (skin disorder, no adhesive when possible.) Family history of Anesthesia Complications: Denies Family history of Malignant Hyperthermia: Denies - Medical History Cardiovascular: reports: Hypertension, High cholesterol Pulmonary: reports: Asthma Gastrointestinal: reports: GERD, Ulcers, Hiatal hernia, C.difficile, Pancreatitis, Diverticulitis Urinary: reports: Frequency Neuro: reports: Headaches Musculoskeletal: reports: Osteoarthritis, Fibromyalgia, Chronic back pain Endocrine/Autoimmune: reports: Type 2 diabetes Blood Disorders: reports: None Skin: reports: Other Smoking Status: Current every day smoker Psychosocial: reports: Cannabis Other Past Medical History: 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 - Surgical History General: Appendectomy, Bowel surgery, Colonoscopy Neurologic: Radical neck Orthopedic: Carpal Tunnel surgery, Spine surgery Exam General: Alert, Oriented x3, Cooperative, No acute distress Dental: WNL Mouth Openin Fingerbreadth Neck Mobility: Normal Mallampati classification: II Respiratory: Lungs clear, Normal breath sounds, No respiratory distress Cardiovascular: Regular rate, Normal S1, Normal S2, No murmurs Plan Anesthesia Type: MAC Consent for Procedure(s) Verified and Reviewed: Yes Code Status: Attempt Resuscitation ASA classification: 2-Mild systemic disease Is this case an emergency?: No
[2020-07-23] MEDS ORDERED: KETOROLAC 0.45% OPHTH DROPS RIGHTEYE ONE (08:25)
[2020-07-23] MEDS ORDERED: PHENYLEPHRINE 2.5% OPHTH 2 ML DROPS RIGHTEYE ONE (08:25)
[2020-07-23] MEDS ORDERED: CYCLOPENTOLATE 1% OPHTH DROPS 2 ML RIGHTEYE ONE (08:25)
[2020-07-23] MEDS ORDERED: PROPARACAINE 0.5% OPHTH DROPS 15 ML RIGHTEYE ONE (08:28)
[2020-07-23] MEDS ORDERED: LACTATED RINGERS 1,000 ML IV SCH (09:00)
[2020-07-23] MEDS ORDERED: EPINEPHrine 1 MG/ML AMP IR ONE ×2 (09:01→09:12)
[2020-07-23] MEDS ORDERED: BRIMONIDINE 0.2% OPHTH DROPS 5 ML OPTH ONE ×2 (09:01→09:12)
[2020-07-23] MEDS ORDERED: CHONDR SULF/HYALURONATE SYRINGE IO ONE ×2 (09:01→09:12)
[2020-07-23] MEDS ORDERED: TIMOLOL 0.5% OPHTH DROPS OPTH ONE (09:01)
[2020-07-23] MEDS ORDERED: BSS/LIDOCAINE/EPINEPHRINE 1 ML SYRINGE IO ONE ×2 (09:02→09:12)
[2020-07-23] MEDS ORDERED: TRIAMCIN/MOXIFLOX OPHTHALMIC 0.6 ML VIAL IO ONE ×3 (09:02→12:44)
[2020-07-23] MEDS ORDERED: PROPARACAINE 0.5% OPHTH DROPS 15 ML EACHEYE ONE ×2 (09:03→09:13)
[2020-07-23] MEDS ORDERED: VANCOMYCIN OPHTHALMI 8MG/0.8ML 8 MG/0.8 ML SYRINGE IO ONE ×3 (09:03→12:44)
--- NOTE | 2020-07-23 09:35 | ANESTHESIA POST OP EVALUATION ---
Anesthesia Post Eval - Post Anesthesia Eval Vitals: Last Vital Signs Temp 36.3 C L 07/23/20 09:28 Pulse 83 07/23/20 09:28 Resp 15 07/23/20 09:28 BP 109/74 07/23/20 09:28 Pulse Ox 98 07/23/20 09:28 CV Function Including HR & BP: positive: Stable Pain Control: positive: Satisfactory Nausea & Vomiting: positive: Negative Mental Status: positive: Baseline Respiratory Status: Airway Patent Hydration Status: Satisfactory Anesthesia Complications: positive: None
[2020-07-23 09:48] VITALS: BP 102/54
[2020-07-23] MEDS ORDERED: TIMOLOL 0.5% OPHTH DROPS ONE (12:43)
[2020-07-23] MEDS ORDERED: BSS/LIDOCAINE/EPINEPHRINE 1 ML SYRINGE ONE (12:43)
[2020-07-23] MEDS ORDERED: BRIMONIDINE 0.2% OPHTH DROPS 5 ML ONE (12:43)
--- NOTE | 2020-07-23 15:19 | OPERATIVE REPORT ---
DATE OF SERVICE: 07/23/2020 Physician: Calin Calixto MD PREOPERATIVE DIAGNOSIS: Visually significant cataract, right eye. This was her first cataract surge ry. POSTOPERATIVE DIAGNOSIS: Visually significant cataract, right eye. This was her first cataract surg roberta. PROCEDURE: Phacoemulsification with posterior chamber intraocular lens implant, right eye. SURGEON: Calin Calixto MD ANESTHESIA: Monitored anesthesia care. COMPLICATIONS: None. OPERATIVE INDICATIONS: This is a 65-year-old woman with progressive vision loss in the right eye due to brunescent cataract, 2+ cortical cataract and 2+ posterior subcapsular cataract. Best corrected visual acuity was 20/40, with glare to hand motion vision in the right eye. Indications for surgery were overall decrease in vision, difficulty seeing words on a computer screen, difficulty reading, di fficulty seeing words, closed captions or game scores on TV, difficulty seeing street signs, particul ant if far away, difficulty driving in low light or at night, difficulty driving at night because of headlights from other vehicles, and difficulty with glare or bright lights in any situation, especia lly flashing lights. She was consented at length concerning risks and benefits of cataract surgery, after which she expressed a desire to proceed with surgery. OPERATIVE PROCEDURE: Patient was taken to OR #3 and placed under monitored anesthesia care. Surgica l timeout was conducted confirming correct patient, correct procedure, and correct surgical site. Sh e was given topical anesthesia, and prepped and draped in the usual sterile fashion. The eye was ent ered at the 12 and 9 o'clock positions. Intracameral Shugarcaine was injected into the anterior shira ronald, followed by Viscoat. A continuous-tear curvilinear capsulorrhexis was performed. The nucleus w as hydrodissected and phacoemulsified. The cortex was evacuated using automated infusion and aspirat ion. Provisc was injected in the capsular bag, and a 23.0 diopter intraocular lens was inserted in t he bag. Infusion and aspiration was used to evacuate the viscoelastic materials. The eye was inflat ed to physiologic pressure using balanced salt solution and found to be watertight. Approximately 0. 25 mL of a mixture of triamcinolone and moxifloxacin was injected transsclerally into the vitreous in the inferotemporal quadrant. An additional 0.55 mL of a mixture of triamcinolone, moxifloxacin and vancomycin was injected subconjunctivally in the superior quadrant for infection and inflammation pro phylaxis. Wound integrity was checked with Weck-Milli sponges. The patient was taken from the Operati ng Room in good condition and given postoperative instructions. TD: 07/23/2020 09:44
== END 2020-07-23 07:50 | disposition home or self-care (01) ==
LOC: SDS 07:49
PROVIDERS: ATTEND Ophthalmology
DX: E11.36 Type 2 diabetes mellitus with diabetic cataract (principal); H25.811 Combined forms of age-related cataract, right eye; Z79.84 Long term (current) use of oral hypoglycemic drugs; I10 Essential (primary) hypertension; F17.200 Nicotine dependence, unspecified, uncomplicated; C64.9 Malignant neoplasm of unspecified kidney, except renal pelvis; Z91.048 Other nonmedicinal substance allergy status
CPT/HCPCS: 66984; A9270; J7120; V2632

== ENCOUNTER 2021-01-11 16:35 | Outpatient (CLI) | payer MEDICARE, OTHER | END 2021-01-11 16:36 | disposition home or self-care (01) | LOC: COV 16:35 | PROVIDERS: ATTEND Ophthalmology | DX: Z01.812 Encounter for preprocedural laboratory examination (principal); H25.812 Combined forms of age-related cataract, left eye; E11.9 Type 2 diabetes mellitus without complications; Z20.822 Contact with and (suspected) exposure to COVID-19 ==

== ENCOUNTER 2021-01-14 06:00 | Day surgery (SDC) | payer MEDICARE, OTHER ==
[2021-01-14] MEDS ORDERED: PHENYLEPHRINE 2.5% OPHTH 2 ML DROPS ONE (06:18)
[2021-01-14] MEDS ORDERED: KETOROLAC 0.45% OPHTH DROPS ONE (06:18)
[2021-01-14] MEDS ORDERED: PROPARACAINE 0.5% OPHTH DROPS 15 ML ONE (06:18)
[2021-01-14] MEDS ORDERED: CYCLOPENTOLATE 2% OPHTH DROPS 2 ML LEFTEYE ONE (06:27)
[2021-01-14] MEDS ORDERED: LACTATED RINGERS 500 ML IV ONE ×2 (06:50→07:54)
--- NOTE | 2021-01-14 07:06 | ANESTHESIA ---
Pre-Anesthesia VS, & Labs - Diagnosis left senile combined cataract - Procedure left cataract extraction with IOL Vital Signs: Temp Pulse Resp BP Pulse Ox 36.6 C 75 16 150/91 H 96 01/14/21 06:15 01/14/21 06:15 01/14/21 06:15 01/14/21 06:15 01/14/21 06:15 Height: 5 ft Weight (kg): 87 kg Body Mass Index: 37.4 BMI Classification: Obese - NPO >8 hours - Is Patient ?: No - Lab Results Current Lab Results: Laboratory Tests 01/14/21 06:45: POC Whole Bld Glucose 236 H Home Medications and Allergies Simvastatin 40 mg PO QPM 11/25/15 oxyCODONE [Roxicodone] 5 mg PO Q6H 10/08/18 Aspirin [Aspirin EC] 1 tab PO DAILY 11/28/18 polyethylene glycoL 3350 [Miralax] 1 packet PO DAILY PRN 11/28/18 Omeprazole 20 mg PO DAILY 05/17/20 Sitagliptin Phosphate [Januvia] 50 mg PO 07/22/20 Allergies/Adverse Reactions: Allergies Allergy/AdvReac Type Severity Reaction Status Date / Time duloxetine AdvReac Anxiety Verified 05/16/20 10:34 gabapentin AdvReac Hallucinati Verified 05/16/20 10:34 ons levofloxacin [From Levaquin] AdvReac Hallucinati Verified 05/16/20 10:34 ons pregabalin [From Lyrica] AdvReac Unknown Verified 05/16/20 10:34 Anes History & Medical History - Anesthetic History Anesthesia Complications: reports: No previous complications - Medical History Cardiovascular: reports: Hypertension, High cholesterol Pulmonary: reports: Asthma Gastrointestinal: reports: GERD, Ulcers, Hiatal hernia, C.difficile, Pancreatitis, Diverticulitis Urinary: reports: Frequency Neuro: reports: Headaches Musculoskeletal: reports: Osteoarthritis, Fibromyalgia, Chronic back pain Endocrine/Autoimmune: reports: Type 2 diabetes Blood Disorders: reports: None Skin: reports: Other Smoking Status: Current every day smoker - Surgical History General: reports: Appendectomy, Bowel surgery, Colonoscopy Neurologic: reports: Radical neck Orthopedic: reports: Carpal Tunnel surgery, Spine surgery Exam General: Alert Dental: WNL Mouth Opening: Greater than 4 Fingerbreadths Neck Mobility: Normal Mallampati classification: II Thyromental Distance: greater than 6 cm Respiratory: Lungs clear Cardiovascular: Regular rate Plan Anesthesia Type: MAC Consent for Procedure(s) Verified and Reviewed: Yes Code Status: Attempt Resuscitation ASA classification: 3-Severe systemic disease Is this case an emergency?: No
[2021-01-14] MEDS ORDERED: VANCOMYCIN OPHTHALMI 8MG/0.8ML 8 MG/0.8 ML SYRINGE IO ONE ×2 (07:14→08:00)
[2021-01-14] MEDS ORDERED: BSS/LIDOCAINE/EPINEPHRINE 1 ML SYRINGE ONE (07:14)
[2021-01-14] MEDS ORDERED: TIMOLOL 0.5% OPHTH DROPS ONE (07:15)
[2021-01-14] MEDS ORDERED: TRIAMCIN/MOXIFLOX OPHTHALMIC 0.6 ML VIAL IO ONE ×2 (07:15→08:00)
[2021-01-14] MEDS ORDERED: EPINEPHrine 1 MG/ML AMP ONE (07:15)
[2021-01-14] MEDS ORDERED: BRIMONIDINE 0.2% OPHTH DROPS 5 ML ONE (07:16)
[2021-01-14] MEDS ORDERED: MIDAZOLAM 2 MG/2 ML VIAL ONE ×2 (07:24→07:50)
[2021-01-14] MEDS ORDERED: fentaNYL 100 MCG/2 ML VIAL ONE (07:42)
[2021-01-14] MEDS ORDERED: TIMOLOL 0.5% OPHTH DROPS OPTH ONE (08:00)
[2021-01-14] MEDS ORDERED: EPINEPHrine 1 MG/ML AMP IR ONE (08:00)
[2021-01-14] MEDS ORDERED: PROPARACAINE 0.5% OPHTH DROPS 15 ML EACHEYE ONE (08:00)
[2021-01-14] MEDS ORDERED: BSS/LIDOCAINE/EPINEPHRINE 1 ML SYRINGE IO ONE (08:00)
[2021-01-14] MEDS ORDERED: CHONDR SULF/HYALURONATE SYRINGE IO ONE (08:00)
[2021-01-14] MEDS ORDERED: BRIMONIDINE 0.2% OPHTH DROPS 5 ML OPTH ONE (08:00)
[2021-01-14 08:16] VITALS: BP 132/76
--- NOTE | 2021-01-14 10:08 | OPERATIVE REPORT ---
DATE OF SERVICE: 01/14/2021 Physician: Calin Calixto MD PREOPERATIVE DIAGNOSIS: Visually significant cataract, left eye. Cataract surgery was performed on the right eye on 07/23/2020. POSTOPERATIVE DIAGNOSIS: Visually significant cataract, left eye. Cataract surgery was performed on the right eye on 07/23/2020. PROCEDURE: Phacoemulsification with posterior chamber intraocular lens implant, left eye. SURGEON: Calin Calixto MD. ANESTHESIA: Monitored anesthesia care. COMPLICATIONS: None. OPERATIVE INDICATIONS: This is a 65-year-old woman with progressive vision loss in the left eye due to brunescent cataract, 2+ cortical cataract, and 2+ posterior subcapsular cataract. Best corrected visual acuity was 20/40 with glare to hand motion vision in the left eye. Indications for surgery ar e overall decrease in vision, difficulty reading, difficulty seeing street signs, difficulty driving in low light or at night, difficulty driving at night because of headlights from other vehicles, and difficulty with glare or bright lights in any situation. She was consented at length concerning risk s and benefits of cataract surgery, after which she expressed a desire to proceed with surgery. OPERATIVE PROCEDURE: The patient was taken into OR #3 and placed under monitored anesthesia care. A surgical timeout was conducted, confirming correct patient, correct procedure, and correct surgical site. She was given topical anesthesia and prepped and draped in usual sterile fashion. The eye was entered at the 6 and 3 o'clock positions. Intracameral Shugarcaine was injected into the anterior c hamber followed by Viscoat. A continuous-tear curvilinear capsulorrhexis was performed. The nucleus was hydrodissected and phacoemulsified. The cortex was evacuated using automated infusion and aspir ation. Provisc was injected in the capsular bag and a 23.0 diopter intraocular lens inserted into th e bag. Infusion and aspiration were used to evacuate the viscoelastic materials. The eye was inflat ed to physiologic pressure using balanced salt solution and found to be watertight. Approximately 0. 25 mL of a mixture of triamcinolone and moxifloxacin was injected transsclerally into the vitreous in the inferotemporal quadrant. An additional 0.55 mL of a mixture of triamcinolone, moxifloxacin, and vancomycin was injected subconjunctivally in the superior quadrant for infection and inflammation pr ophylaxis. Wound integrity was checked with Weck-Milli sponges. The patient was taken from the operat ing room in good condition and given postoperative instructions. TD: 01/14/2021 09:17
--- NOTE | 2021-01-14 18:23 | ANESTHESIA POST OP EVALUATION ---
Anesthesia Post Eval - Post Anesthesia Eval Vitals: Last Vital Signs Temp 36.4 C L 01/14/21 08:15 Pulse 71 01/14/21 08:15 Resp 16 01/14/21 08:15 BP 132/76 H 01/14/21 08:15 Pulse Ox 94 01/14/21 08:15 CV Function Including HR & BP: positive: Stable Pain Control: positive: Satisfactory Nausea & Vomiting: positive: Negative Mental Status: positive: Baseline Respiratory Status: Airway Patent Hydration Status: Satisfactory Anesthesia Complications: positive: None
== END 2021-01-14 06:01 | disposition home or self-care (01) ==
LOC: SDS 06:00
PROVIDERS: ATTEND Ophthalmology
DX: E11.36 Type 2 diabetes mellitus with diabetic cataract (principal); H25.812 Combined forms of age-related cataract, left eye; Z79.84 Long term (current) use of oral hypoglycemic drugs; I10 Essential (primary) hypertension; E66.9 Obesity, unspecified; Z68.37 Body mass index [BMI] 37.0-37.9, adult; J45.909 Unspecified asthma, uncomplicated; E78.00 Pure hypercholesterolemia, unspecified; F17.200 Nicotine dependence, unspecified, uncomplicated; C64.9 Malignant neoplasm of unspecified kidney, except renal pelvis
CPT/HCPCS: 66984; A9270; J3490; J7120; V2632

== ENCOUNTER 2021-10-26 12:18 | Outpatient (CLI) | payer MEDICARE, OTHER ==
--- NOTE | 2021-10-26 16:37 | XRAY Report ---
PROCEDURE: Chest 2 View X-Ray INDICATIONS: PERSONAL HISTORY OF RENAL CANCER TECHNIQUE: 2 view(s) of the chest. COMPARISON: 06/22/2019 chest radiographs FINDINGS: Surgical changes and devices: None. Lungs and pleura: No pleural effusions or pneumothorax. Lungs are clear. Mediastinum: Mediastinal contours are normal. Heart size is normal. Bones and chest wall: No suspicious bony abnormalities. Soft tissues appear unremarkable. IMPRESSION: No lung mass or other acute cardiopulmonary process demonstrated radiographically. Reviewed by: Shay Babcock MD on 10/26/2021 3:36 PM [facility] Approved by: Shay Babcock MD on 10/26/2021 3:36 PM [facility] Station ID: [id number]
== END 2021-10-26 12:19 | disposition home or self-care (01) ==
LOC: DI 12:18
PROVIDERS: ATTEND Internal Medicine
DX: Z85.528 Personal history of other malignant neoplasm of kidney (principal)

== ENCOUNTER 2022-02-01 12:34 | Outpatient (CLI) | payer MEDICARE, OTHER ==
--- NOTE | 2022-02-01 13:59 | DEXA Report ---
PROCEDURE: Dexa Spine and/or Hip INDICATIONS: POST MENOPAUSAL TECHNIQUE: Dual energy x-ray absorptiometry (DXA) was performed on a [employer] System. Regions measur ed are the AP Spine, femoral neck, and if needed forearm. COMPARISON: None. FINDINGS: Lumbar Spine: Posterior element hardware. Left Hip: Bone Mineral Density 1.015 g/cm/cm,T score 0.1, normal Left Femoral Neck: Bone Mineral Density 0.917 g/cm/cm, T score -0.9, normal Left forearm: Bone Mineral Density 0.887 g/cm/cm, T score 0.1, normal (T score greater or equal to -1.0: NORMAL) (T score from -1.1 to -2.4: OSTEOPENIA) (T score less than or equal to -2.5 to: OSTEOPOROSIS) Impression: Bone mineral density as detailed above Patients with diagnosis of osteoporosis or osteopenia should have regular bone mineral density assess ment. For those eligible for Medicare, routine testing is allowed once every 2 years. Testing frequ ency can be increased for patients who have rapidly progressing disease or for those who are receivin g medical therapy to restore bone mass. Reviewed by: Bryson Lizarraga MD on 02/01/2022 1:58 PM PDT Approved by: Bryson Lizarraga MD on 02/01/2022 1:58 PM PDT Station ID: [id number]
== END 2022-02-01 12:35 | disposition home or self-care (01) ==
LOC: DI 12:34
PROVIDERS: ATTEND Internal Medicine
DX: Z78.0 Asymptomatic menopausal state (principal); Z96.698 Presence of other orthopedic joint implants